=== PATIENT | male | born 1940 | race Caucasian/White ===

== ENCOUNTER 2016-12-24 00:51 | Inpatient (IN) | payer MEDICARE, OTHER ==
--- NOTE | 2016-12-23 13:50 | NUR ---
1350-RECIEVED FROM FLAT MACHINE CUTTER-R FEM MICKIE IN PLACE AND PLACED TO MONITOR-NOTED AFIB ON [id number]-GPCBO AND ALERT-RESTLESS SOME CONFUSION-O2 AT 2 L SYSTEM DEVELOPMENT ENGINEER-R AC-INFUSNG INTEGRELIN AT 8.3ML/H-RENAL DOSE-SUPINE AND DIRECTED BY STAFF TO REMAIN SUPINE-FAMILY BROUGHT TO BEDSIDE-
--- NOTE | 2016-12-23 14:30 | NUR ---
Lisha JOSE AT BEDSIDE -RENAL NURSE PRACTITIONER-CONSULT FOR SAME OBTAINED BY DR MANCILLA-EVENTS AND CURRENT STATUS REPORT GIVEN-FAMILY STATED PT WAS SEEN BY KIDNEY DR IN PAST -NOT ABLE TO RECALL WHEN-PT DENIED SAME-N/S STARTED AT 100ML/H AND TO CONTINUE
--- NOTE | 2016-12-23 17:50 | NUR ---
URINE SAMPLES SENT
[2016-12-24] VITALS (27 sets, daily range): BP systolic 102–202; BP diastolic 59–132; BMI 30.1
[~2016-12-24] VITALS: Ht 188 cm; Wt 107.1 kg
--- NOTE | ~2016-12-24 | HEMODYNAMI ---
PATIENT:ABDULLAHI POTTS JR MEDICAL RECORD: [id number] : 42 [address] [id number] ADMISSION DATE: 12/24/16 Generatedon:12/26/201612:21 Patient name: ABDULLAHI POTTS Patient #: [id number] SSN: D OB: 1940 Date of study: 12/24/2016 Page: Of Hemodynamic Procedure Report Patient Data Patient Demographics Procedure consent was obtained First Name: ABDULLAHI Gender: Male Last Name: KATLYN Suffix: [facility] Initial: Nataliia : 1940 Patient #: [id number] Age: 76 year(s) Race: Unknown Additional ID: [id number] Contact details Address: [address] [place] [address] State: [place] City: [place] Zip code: [address] Past Medical History Allergies: No known allergies Admission Admission Data Admission Date: 12/24/2016 Admission Time: 3:09 Room #: [facility] Height (in.): 74 BSA: 2.33 (m2) Height (cm.): 187.96 BMI: 30.11 (kg/m2) Weight (lbs.): 234.5 Weight (kg.): 106.37 Lab Results Lab Result Date: 12/24/2016 Lab Result Time: 0:00 Biochemistry Name Units Result Min Max Creatinine mg/dl 1.9 --(----)-* 0.6 1.3 CBC Name Units Result Min Max Hemoglobin g/dl 14.4 --(*---)-- 13.5 17.5 Procedure Procedure Types Cath Procedure Diagnostic Procedure LHC LHC w/Coronaries PCI Procedure Coronary Stent Initial Miscellaneous Procedures Moderate Sedation up to 45 minutes Procedure Description Procedure Date Procedure Date: 12/24/2016 Procedure Start Time: 11:11 Procedure End Time: 12:30 Procedure Staff Name Function Venecia Kurtz RT Monitor Richie Duarte RT Scrub Andres Ferrer RN Nurse Candido Elizabeth MD Performing Physician Procedure Data Cath Procedure Fluoroscopy Diagnostic fluoroscopy Total fluoroscopy Time: time: 18.2 min 18.2 min Diagnostic fluoroscopy Total fluoroscopy dose: dose: 2663 mGy 2663 mGy Contrast Material Contrast Material Type Amount (ml) Isovue 300 301 Entry Location Entry Primary Successful Side Size Upsize Upsize Entry Closure Succes sful Closure Location (Fr) 1 (Fr) 2 (Fr) Remarks Device Remarks Femoral Right 5 Fr 6 Fr Sheath artery Long sutured in place Estimated blood loss: 10 ml Diagnostic catheters Device Type Used For End Catheter Placement Cordis 5Fr JL 4.0 Left Coronary Catheter (MP) Angiography Diagnostic Infinity 5Fr Left Coronary JL 5 catheter Angiography Cordis 5Fr 3DRC Catheter Right Coronary (MP) Angiography Cordis 5Fr Pigtail LV Angiography Catheter (MP) Cordis 5Fr Pigtail Renal Catheter (MP) arteriography with flush -selective Procedure Complications Contrast Reaction Procedure Medications Medication Administration Route Dosage Oxygen NC 2 l/min Lidocaine 2% added to field 20 Heparin Flush Bag added to field 2 bags (1000units/500ml NS) 0.9% NaCl I.V. 100 ml/hr Versed I.V. 1 mg Fentanyl I.V. 50 mcg Versed I.V. 1 mg Fentanyl I.V. 50 mcg unlisted medication I.V. 2.5 mg Versed I.V. 1 mg Fentanyl I.V. 50 mcg Heparin Bolus I.V. 5000 units Versed I.V. 1 mg Fentanyl I.V. 50 mcg Pepcid I.V. 20 mg Solumedrol I.V. 125 mg Epinephrine I.V. 1 mg Solumedrol I.V. 125 mg Lasix I.V. 40 mg Oxygen NRB 16 l/min Integrilin (Bolus I.V. 9.5 ml 2mg/ml) Heparin Bolus I.V. 5000 units Integrilin Drip 8.5 ml/hr (75mg/100ml) Hemodynamics Rest BSA: 2.33 (m2) HGB: 14.4 (g/dl) O2 Consumption: Estimated: 266.89 (ml/min) O2 Co nsumption indexed: Estimated:114.55 (ml/min/m) Heart Rate: 69 (bpm) Pressure Samples Time Site Value (mmHg) Purpose Heart Use Rate(bpm) 11:19 LV 166/20,23 EDP 62 11:19 LV 155/18,21 Pullback 60 11:19 AO 165/73(120) Pullback 60 Gradients Valve Time Site 1 Site 2 Mean SEP/DFP Peak To Heart Use (mmHg) (sec/min) Peak Rate (mmHg) (bpm) Aortic 11:19 LV AO 0 60 155/18,21 165/73(120) Calculations Valve P-P Mean Valve Index Valve Source Name Gradient Area Flow (cm2) Aortic 0 0 Snapshots Pre Cath Intra NCS Post Cath Vital Signs Time Heart Resp SPO2 etCO2 [id number] NIBP (mmHg) Rhythm Pain Sedatio n Rate (ipm) (%) (mmHg) (mmHg) Status Level (bpm) 10:55:37 82 26 96 0 0 211/127(182) A-Fib 0 () 10(A) , No pain 11:00:07 71 18 94 0 0 192/124(159) A-Fib 0 () 10(A) , No pain 11:04:24 60 16 95 0 0 188/106(166) NSR 0 (11) 10(A) , No pain 11:09:35 62 15 93 0 0 171/117(149) NSR 0 (11) 10(A) , No pain 11:13:51 67 16 97 0 0 167/106(135) NSR 0 (11) 9(A) , No pain 11:17:57 66 15 96 0 0 167/114(144) NSR 0 (11) 9(A) , No pain 11:22:09 58 16 96 0 0 180/94(130) NSR 0 (11) 9(A) , No pain 11:26:27 63 13 97 0 0 173/109(135) NSR 0 (11) 9(A) , No pain 11:30:41 62 13 96 0 0 176/102(146) NSR 0 (11) 9(A) , No pain 11:34:49 69 16 98 0 0 125/72(90) NSR 0 (11) 10(A) , No pain 11:38:52 81 13 95 0 0 100/61(84) NSR 0 (11) 10(A) , No pain 11:42:54 79 14 96 0 0 86/53(75) NSR 0 (11) 10(A) , No pain 11:46:39 90 39 96 0 0 102/83(98) NSR 0 (11) 10(A) , No pain 11:51:24 87 39 96 0 0 164/101(123) NSR 0 (11) 10(A) , No pain 11:55:26 81 21 94 0 0 123/83(107) NSR 0 (11) 10(A) , No pain 11:59:25 73 16 98 0 0 126/82(104) NSR 0 (11) 10(A) , No pain 12:03:23 69 18 98 0 0 128/89(102) NSR 0 (11) 10(A) , No pain 12:07:21 77 18 99 0 0 145/92(116) NSR 0 (11) 10(A) , No pain 12:11:24 76 16 100 0 0 134/85(105) NSR 0 (11) 10(A) , No pain 12:15:26 78 17 100 0 0 124/90(107) NSR 0 (11) 10(A) , No pain 12:19:24 70 17 100 0 0 137/90(112) NSR 0 (11) 10(A) , No pain 12:23:23 74 18 98 0 0 127/96(114) NSR 0 (11) 10(A) , No pain 12:27:23 78 18 96 0 0 133/88(113) NSR 0 (11) 10(A) , No pain Medications Time Medication Route Dose Verified Delivered Reason Notes Effectiveness by by 10:52:49 Oxygen NC 2 Candido Buffie used for l/min [facility] Edwardo owens MD 10:52:58 Lidocaine 2% added 20ml Candido Buffie for local to vial [facility]. Edwardo Ferrer RN anesthetic field WORRELL 10:53:06 Heparin Flush added 2 Candido Candido used for Bag to bags [place] procedure (1000units/500ml field MD WORRELL NS) 10:53:16 0.9% NaCl I.V. 100 Candido Buffie Per physician ml/hr [facility] Edwardo Ferrer RN, MD 11:10:16 Versed I.V. 1 mg Candido Buffie for sedation [facility] Edwardo Ferrer RN, MD 11:10:25 Fentanyl I.V. 50 Candido Buffie for sedation mcg [facility] Edwardo Ferrer RN, MD 11:13:08 Versed I.V. 1 mg Candido Buffie for sedation [facility] Edwardo Ferrer RN, MD 11:13:12 Fentanyl I.V. 50 Candido Buffie for sedation mcg [facility] Edwardo Ferrer RN, MD 11:16:37 Enalapril I.V. 2.5 Candido Salas[address] for mg [facility] Edwardo Ferrer RN hypertension MD 11:22:29 Versed I.V. 1 mg Candido Buffie for sedation [facility]. Edwardo Ferrer RN, MD 11:22:33 Fentanyl I.V. 50 Candido Buffie for sedation mcg [facility] Edwardo Ferrer RN, MD 11:23:44 Heparin Bolus I.V. 5000 Candido Buffie for verifi ed units [facility] Edwardo Ferrer RN anticoagulation with dr MD girard 11:34:54 Versed I.V. 1 mg Candido Buffie for sedation [facility]. Edwardo Ferrer RN, MD 11:35:00 Fentanyl I.V. 50 Candido Buffie for sedation mcg [facility] Edwardo Ferrer RN, MD 11:38:35 Solumedrol I.V. 125 Candido Campos Per physician mg [facility] Edwardo Ferrer RN, MD 11:41:02 Pepcid I.V. 20 mg Candido Campos Per physician [facility] Edwardo Ferrer RN, MD 11:46:14 Epinephrine I.V. 1 mg Candido Campos Per physician [facility] Edwardo Ferrer RN, MD 11:49:17 Solumedrol I.V. 125 Candido Salasie Per physician mg [facility] Edwardo Ferrer RN, MD 11:51:29 Lasix I.V. 40 mg Candido Campos Per physician [facility]. Edwardo Ferrer RN, MD 11:57:12 Oxygen NRB 16 Candido Buffie used for l/min [facility] Edwardo Ferrer RN procedure 12:00:21 Integrilin I.V. 9.5 Candido Salasie for Wasted (Bolus 2mg/ml) ml [facility] Edwardo Ferrer RN antiplatelet 0.5 ml MD therapy of vial. 12:06:01 Heparin Bolus I.V. 5000 [address] for units [facility] Edwardo Ferrer RN anticoagulation 12:06:09 Integrilin Drip 8.5 Candido Buffie renal (75mg/100ml) ml/hr [facility] Edwardo Ferrer RN dose MD Procedure Log Time Note 10:30:13 Richie Duarte RT(R) sent for patient. Start room use. 10:35:20 Time tracking: Call back 10:35:24 Plan of Care:Hemodynamics will remain stable., Cardiac rhythm will remain stable., Comfort level will be maintained., Respiratory function will remain adequate., Patient/ family verbilizes understanding of procedure., Procedure tolerated without complication., Recovers from procedure without complications.. 10:40:17 Patient Height : 74 cm 10:40:26 Patient Weight : 234.5 kg 10:45:22 Patient received from PCU to CCL 1 Alert and oriented. Tansferred to table in Supine position. 10:45:34 Warm blankets applied, and eli hugger turned on for patient comfort. 10:45:35 Correct patient and procedure confirmed by team. 10:45:36 Signed procedure consent form obtained from patient. 10:45:37 ECG and BP/O2 sat monitors applied to patient. 10:45:38 Full Disclosure recording started 10:52:49 Oxygen 2 l/min NC was administered by Andres Ferrer RN; used for procedure; 10:52:58 Lidocaine 2% 20ml vial added to field was administered by Andres Ferrer RN; for local anesthetic; 10:53:06 Heparin Flush Bag (1000units/500ml NS) 2 bags added to field was administered by Candido Elizabeth MD; used for procedure; 10:53:15 Vital chart was started 10:53:16 0.9% NaCl 100 ml/hr I.V. was administered by Andres Ferrer RN; Per physician; 10:56:47 Rhythm: atrial fibrillation 10:56:50 Baseline sample Acquired. 10:56:54 H&P Date Dictated: 12/24/2016 Within 30 days and on chart.. 10:56:56 Pre-op teaching completed and patient verbalized understanding. 10:56:56 Pre-procedure instructions explained to patient. 10:56:57 Family in waiting room. 10:57:00 Patient NPO since Midnight. 10:57:07 Patient allergic to No known allergies 10:57:51 Is the patient allergic to Iodine/contrast media? No. 10:57:55 Is patient on blood thinner?Yes 10:57:57 ACC The patient was administered the following blood thiners within the last 24 hours: ACCPlavix 10:58:06 Patient diabetic? No. 10:58:09 Previous problem with sedation/anesthesia? No ? 10:58:11 Snore? Yes 10:58:12 Sleep apnea? Yes 10:58:13 Deviated septum? No 10:58:14 Sticks out tongue? Yes 10:58:14 Opens mouth fully? Yes 10:58:16 Airway obstruction? No ? 10:58:19 Dentures? No ? 10:58:22 Pre procedure: right dorsailis pedis pulse 2+ Normal; easily identifiable; not easily obliterated 10:58:24 Modified Anderson's test Ulnar < 7 seconds 10:58:25 Patient pain scale 0/10 ?. 10:58:31 IV patent on arrival in right forearm with 0.9% NaCl at [facility]. 10:58:36 Lab results completed and on chart. 10:59:18 Lab Result : Hemoglobin 14.4 g/dl 10:59:18 Lab Result : Creatinine 1.9 mg/dl 10:59:25 Right groin area was prepped with chlora-prep and draped in sterile fashion 10:59:26 Sharps counted by scrub and verified by R.N. 10:59:26 Alarms reviewed by R. N. 11:05:07 Physician paged 11:06:37 Zero performed for pressure channel P1 11:07:43 Use device set Femoral Dx 11:07:44 Acist Syringe opened to sterile field. 11:07:45 Medline Cath Pack opened to sterile field. 11:07:45 Bag Decanter opened to sterile field. 11:07:46 St Moreno 260cm J .035 wire opened to sterile field. 11:07:46 Terumo 5Fr [place] Sheath opened to sterile field. 11:07:47 Acist Hand Control opened to sterile field. 11:07:48 Diagnostic Infinity 5Fr Multipack catheter opened to sterile field. 11:07:48 Acist Manifold opened to sterile field. 11:07:49 Tegaderm 4 x 4 opened to sterile field. 11:09:04 Final Timeout: patient, procedure, and site verified with staff and physician. All members of the team are in agreement. 11:09:07 Right groin site verified by team. 11:09:11 Physical assessment completed. ASA score P 2 - A patient with mild systemic disease as per Candido Elizabeth MD. 11:09:46 Sedation plan: IV Moderate Sedation Versed, Fentanyl 11:10:16 Versed 1 mg I.V. was administered by Andres Ferrer RN; for sedation; 11:10:25 Fentanyl 50 mcg I.V. was administered by Andres Ferrer RN; for sedation; 11:11:30 Procedure started. 11:11:32 Local anesthetic to right femoral artery with Lidocaine 2% by Candido Elizabeth MD.INITIAL ACCESS ONLY 11:12:18 A 5 Fr sheath was inserted into the Right Femoral artery 11:13:08 Versed 1 mg I.V. was administered by Andres Ferrer RN; for sedation; 11:13:12 Fentanyl 50 mcg I.V. was administered by Andres Ferrer RN; for sedation; 11:13:54 A Cordis 5Fr JL 4.0 Catheter (MP) was advanced over the wire and used for Left Coronary Angiography.removed, unable to cannulate 11:14:58 Catheter removed. 11:15:11 A Diagnostic Infinity 5Fr JL 5 catheter was advanced over the wire and used for Left Coronary Angiography. 11:16:25 Catheter removed. 11:16:37 Enalapril 2.5 mg I.V. was administered by Andres Ferrer RN; for hypertension; 11:16:57 A Cordis 5Fr 3DRC Catheter (MP) was advanced over the wire and used for Right Coronary Angiography. 11:17:42 Catheter removed. 11:18:11 A Cordis 5Fr Pigtail Catheter (MP) was advanced over the wire and used for LV Angiography. 11:19:36 LV gram done using RESENDIZ 11:19:55 Injector settings: Ml/sec: 7, Volume: 15, 11:21:12 A Cordis 5Fr Pigtail Catheter (MP) was advanced over the wire and used for Renal arteriography with flush -selective. 11:21:15 Catheter removed. 11:22:01 LawPivottronic Launcher 6Fr EBU 4.0 guide catheter opened to sterile field. 11:22:02 Munroe Whisper J 300cm 0.014 guide wire opened to sterile field. 11:22:03 Merit BasixCompak Inflation Kit opened to sterile field. 11:22:03 Terumo 6Fr [place] Destination Sheath opened to sterile field. 11:22:24 Sheath upsized to a 6 Fr Long. 11:22:29 Versed 1 mg I.V. was administered by Andres Ferrer RN; for sedation; 11:22:32 Terumo 6Fr [place] Sheath opened to sterile field. 11:22:33 Fentanyl 50 mcg I.V. was administered by Andres Ferrer RN; for sedation; 11:23:32 6 Fr EBU 4.0 guide catheter was inserted over the wire 11:23:44 Heparin Bolus 5000 units I.V. was administered by Andres Ferrer RN; for anticoagulation; verified with dr girard 11:24:10 Whisper wire advanced. 11:29:12 The Medtronic Integrity 2.5 X 18 stent was advanced then removed because of failure to cross lesion 11:32:04 Inflation number: 1 A [place]ren[place] Sci Haralson 3.0 X 15 balloon was prepped and advanced across the Dist LAD, then inflated to 10 VERNA for 0:24 (min:sec). 11:32:49 Inflation number: 1 The [place] Sci Haralson 3.0 X 15 balloon was reinflated across the Prox LAD, to 15 VERNA for 0:10 (min:sec). 11:33:10 Inflation number: 2 The [place] Sci Haralson 3.0 X 15 balloon was reinflated across the Prox LAD, to 14 VERNA for 0:08 (min:sec). 11:34:23 Inflation number: 3 The [place] Sci Haralson 3.0 X 15 balloon was reinflated across the Prox LAD, to 14 VERNA for 0:30 (min:sec). 11:34:54 Versed 1 mg I.V. was administered by Andres Ferrer RN; for sedation; 11:35:00 Fentanyl 50 mcg I.V. was administered by Andres Ferrer RN; for sedation; 11:35:44 Balloon removed over the wire. 11:37:23 Wire removed. 11:37:31 Wrenshall Sci Choice PT Extra Support J 300cm .014 gu opened to sterile field. 11:37:32 pt having symptoms of possible contrast reaction. frothy airway and development of whelps and itching. dr girard notified immediately. 11:38:35 Solumedrol 125 mg I.V. was administered by Andres Ferrer RN; Per physician; 11:38:43 Inflation Number: 2 A Medtronic Integrity 2.5 X 18 stent was prepped and advanced across the Dist LAD. The stent was deployed at 12 VERNA for 0:22 (min:sec). 11:39:24 Stent catheter was removed intact over wire. 11:41:02 Pepcid 20 mg I.V. was administered by Andres Ferrer RN; Per physician; 11:42:13 Inflation Number: 4 A Medtronic Integrity 3.0 X 18 stent was prepped and advanced across the Prox LAD. The stent was deployed at 14 VERNA for 0:23 (min:sec). 11:43:59 Stent catheter was removed intact over wire. 11:46:05 Patient complaining of itching and breaking out in hives. Diaphoretic . Possible contrast reaction. 11:46:11 Wire removed. 11:46:14 Epinephrine 1 mg I.V. was administered by Andres Ferrer RN; Per physician; 11:46:17 New Whisper wire advanced. 11:49:17 Solumedrol 125 mg I.V. was administered by Andres Ferrer RN; Per physician; 11:49:50 Wire removed. 11:49:51 Guide catheter removed. 11:51:29 Lasix 40 mg I.V. was administered by Andres Ferrer RN; Per physician; 11:55:23 6 Fr EBU 4.0 guide catheter was inserted over the wire 11:57:12 Oxygen 16 l/min NRB was administered by Andres Ferrer RN; used for procedure; 11:58:41 Whisper wire advanced. 12:00:21 Integrilin (Bolus 2mg/ml) 9.5 ml I.V. was administered by Andres Ferrer RN; for antiplatelet therapy; Wasted 0.5 ml of vial. 12:01:22 Inflation number: 5 The [place] Sci Haralson 3.0 X 15 balloon was reinflated across the Prox LAD, to 8 VERNA for 0:05 (min:sec). 12:01:32 Inflation number: 6 The [place] Sci Haralson 3.0 X 15 balloon was reinflated across the Prox LAD, to 8 VERNA for 0:03 (min:sec). 12:01:45 Inflation number: 7 The [place] Sci Haralson 3.0 X 15 balloon was reinflated across the Prox LAD, to 8 VERNA for 0:03 (min:sec). 12:02:00 Inflation number: 8 The [place] Sci Haralson 3.0 X 15 balloon was reinflated across the Prox LAD, to 8 VERNA for 0:03 (min:sec). 12:02:42 Inflation number: 9 The [place] Sci Haralson 3.0 X 15 balloon was reinflated across the Prox LAD, to 10 VERNA for 0:10 (min:sec). 12:04:32 Balloon removed over the wire. 12:06:01 Heparin Bolus 5000 units I.V. was administered by Andres Ferrer RN; for anticoagulation; 12:06:09 Integrilin Drip (75mg/100ml) 8.5 ml/hr was administered by Andres Ferrer RN; ; renal dose 12:07:43 The Medtronic Integrity 3.0 X 15 stent was advanced then removed because of failure to cross lesion 12:07:53 Guide catheter removed. 12:07:53 Wire removed. 12:08:10 Sheath removed intact; hemostasis achieved with Sheath sutured in place to the Right Femoral artery. 12:08:45 Procedure ended.(Physican Out) 12:09:07 Fluoroscopy time 18.20 minutes. 12:09:11 Fluoroscopy dose: 2663 mGy 12:09:11 Flurop Dose total: 2663 12:09:33 Contrast amount:Isovue 300 301ml. 12:09:35 Sharps counted by scrub and verified by R.N. 12:09:39 Insertion/operative site no bleeding no hematoma. 12:09:44 Post-op/insertion site Right Femoral artery dressed using a 4 x 4 and Tegaderm. 12:09:52 Post right femoral artery:unchanged, clean and dry 12:09:53 Post Procedure Pulses reassessed and unchanged 12:10:00 Post-procedure physical assessment completed. ASA score P 3 - A patient with severe systemic disease as per Candido Elizabeth MD. 12:10:07 Post procedure rhythm: unchanged. 12:10:11 Estimated blood loss: 10 ml 12:10:12 Patient needs reinforcement of post procedure teaching. 12:10:12 Post procedure instruction explained to patient.Patient verbalizes understanding. 12:10:39 Procedure type changed to Cath procedure, Diagnostic procedure, LHC, LHC w/Coronaries, PCI procedure, Coronary Stent Initial, Miscellaneous Procedures, Moderate Sedation up to 45 minutes 12:13:34 SUTURE SILK 2-0 BLK BR FS 18 I opened to sterile field. 12:14:02 Wren[place] Sci Choice PT Extra Support J 300cm .014 gu opened to sterile field. 12:14:52 Procedure and supply charges have been captured, reviewed, submitted and are correct. 12:14:53 See physician's report for complete and final results. 12:30:12 Vital chart was stopped 12:30:15 Report given to CVICU. 12:30:20 Patient transfered to CVICU with Bed. 12::29 Full Disclosure recording stopped 12::29 Procedure ended. 12:31:06 End room use (Document Last) 12:15:20 Procedure Complication : Contrast Reaction. late entry rosa rn 12:17:42 Pt to be transfered to CVICU due to anaphylaxis reaction to contrast. Pt continues to have patent airway with guarded monitoring of swelling. Whelps and itching resolved. late entry rosa rn Intervention Summary Intervention Notes Time ActionType Lesion and Equipment Action# Pressure Duration Attributes Used 11:29:12 Discard Medtronic Stent Integrity 2.5 X 18 stent 11:32:04 Inflate Dist LAD W[place] 1 10 00:24 balloon Sci Haralson 3.0 X 15 balloon 11:32:49 Reinflate Prox LAD Wrenshall 1 15 00:10 balloon Sci Haralson 3.0 X 15 balloon 11:33:10 Reinflate Prox LAD Wrenshall 2 14 00:08 balloon Sci Haralson 3.0 X 15 balloon 11:34:23 Reinflate Prox LAD [place]shall 3 14 00:30 balloon Sci Haralson 3.0 X 15 balloon 11:38:43 Place stent Dist LAD Medtronic 2 12 00:22 Integrity 2.5 X 18 stent 11:42:13 Place stent Prox LAD Medtronic 4 14 00:24 Integrity 3.0 X 18 stent 12:01:22 Reinflate Prox LAD [place]renshall 5 8 00:05 balloon Sci Haralson 3.0 X 15 balloon 12:01:32 Reinflate Prox LAD Wrenshall 6 8 00:03 balloon Sci Haralson 3.0 X 15 balloon 12:01:45 Reinflate Prox LAD Wrenshall 7 8 00:03 balloon Sci Haralson 3.0 X 15 balloon 12:02:00 Reinflate Prox LAD Wrenshall 8 8 00:03 balloon Sci Haralson 3.0 X 15 balloon 12:02:42 Reinflate Prox LAD W[place]shall 9 10 00:10 balloon Sci Haralson 3.0 X 15 balloon 12:07:43 Discard Medtronic Stent Integrity 3.0 X 15 stent Device Usage Item Name Manufacture Quantity Catalog Number Hospital Part Current Mini mal Lot# / Charge Number Stock Stock Serial# Code Acist Acist 1 [id number] 888996 350535 20 Syringe Medical Systems Inc Bag Microtek 1 [id number] 592807 13040 788551 5 Convrrt Inc. Medline Cardinal 1 [id number] 137749 65684 778787 5 Cath Pack Health Terumo 5Fr Terumo 1 [id number] 580685 767188 451502 [address] Moreno 1 [id number] 161647 551573 351084 30 260cm J .035 wire Acist Hand Acist 1 95520 686392 766191 618511 5 Control Medical Systems Inc Acist Acist 1 89755 734273 450306 115729 5 ideasoft Medical Systems Inc Diagnostic Cardinal 1 [id number] 427080 45707 379092 30 Infinity Health 5Fr Multipack catheter Tegaderm 4 3M 1 1626W 150171 798791 845547 5 x 4 Cordis 5Fr Cardinal 1 492389 5 JL 4.0 Health Catheter (MP) Diagnostic Cardinal 1 [id number] 249378 338668 546166 5 Infinity Health 5Fr JL 5 catheter Cordis 5Fr Cardinal 1 557150 5 3DRC Health Catheter (MP) Cordis 5Fr Cardinal 1 007072 5 Pigtail Health Catheter (MP) Medtronic Medtronic 1 [id number] 983946 03340 964799 1 Launcher 6Fr EBU 4.0 guide catheter Munroe Munroe 1 [id number] 337481 369159 601891 5 Whisper J Vascular 300cm 0.014 guide wire Terumo 6Fr Terumo 1 [id number] 545806 09036 068148 5 [place] Destination Sheath Merit Merit 1 [id number] 914026 450853 238569 15 [facility] Medical Inflation Kit Terumo 6Fr Terumo 1 [id number] 595362 918833 755050 40 [place] Sheath Medtronic Medtronic 1 [id number] 894152 407753 5 [id number] Integrity 2.5 X 18 stent Wrenshall Sci Wrenshall 1 [id number] 044845 088257 684122 1 [id number] Haralson Scientific 3.0 X 15 balloon Wrenshall Sci Wrenshall 2 [id number] 974052 20181127 717129 5 Choice PT Scientific Extra Support J 300cm .014 gu Medtronic Medtronic 1 [id number] 999769 500165 5 [id number] Integrity 3.0 X 18 stent Medtronic Medtronic 1 [id number] 815683 230725 2 [id number] Integrity 3.0 X 15 stent SUTURE SILK Ethicon 1 685 193858 528934 5 2-0 BLK BR FS 18 I Signature Audit [place] Stage Time Signature Unsigned Intra-Procedure 12/24/2016 Venecia Counts Venecia Counts RT(R) 12:36:54 PM RT(R) 12/26/2016 12:13:41 PM Intra-Procedure 12/26/2016 Venecia Counts 12:21:23 PM RT(R) Signatures Monitor : Venecia Counts RT Signature : Date : Time : [place] [id number]
[2016-12-24 01:21] LABS: BASOPHILS 0.5 % (0-2); EOSINOPHILS 1.5 % (0-7); HEMATOCRIT 43.7 % (42.0-54.0); HEMOGLOBIN 14.4 g/dL (13.5-17.5); IMMATURE GRANULOCYTES 0.2 % (0-5); LYMPHOCYTES 11.2 % (15-50); MCH 31.6 pg (26.0-34.0); MEAN PLATELET VOLUME 10.8 fL (7.4-10.4); MONOCYTES 4.2 % (2-11); NEUTROPHILS 82.4 % (40-80); PLATELET COUNT 236 10x3/uL (130-400); RBC 4.55 10x6/uL (4.20-6.10); RDW 14.8 % (11.5-14.5); WBC 12.2 10x3/uL (4.8-10.8)
[2016-12-24 01:58] LABS: ALBUMIN 3.3 g/dL (3.4-5.0); ALKALINE PHOSPHATASE 84 U/L (46-116); ALT (SGPT) 22 U/L (10-68); BILIRUBIN - TOTAL 0.65 mg/dL (0.2-1.3); CALC OSMOLALITY 273 mosm/kg (275-300); CALCIUM 8.4 mg/dL (8.5-10.1); CARBON DIOXIDE 32.8 mmol/L (21.0-32.0); CHLORIDE - SERUM 102 mmol/L (98-107); CREATINE KINASE 155 UL (21-232); CREATININE - SERUM 1.9 mg/dL (0.6-1.3); GLUCOSE 167 mg/dL (74-106); POTASSIUM - SERUM 2.8 mmol/L (3.5-5.1); PRO BNP 3766 pg/mL (0-450); PROTEIN - SERUM 7.5 g/dL (6.4-8.2); SODIUM 131 mmol/L (136-145); UREA NITROGEN 33 mg/dL (7-18); eGFR NON AFRICAN AMERICAN 37 mL/min (90-120)
[2016-12-24 01:59] LABS: TROPONIN-I 1.926 ng/mL (0.000-0.060)
[2016-12-24] MEDS ORDERED: FLUTICASONE PRO16 GM (03:22)
[2016-12-24] MEDS ORDERED: PROAIR HFA8.5 GM INH (03:23)
[2016-12-24] MEDS ORDERED: ALAVERT10 MG/TAB PO (03:24)
[2016-12-24] MEDS ORDERED: KLONOPIN0.5 MG PO (03:26)
[2016-12-24] MEDS ORDERED: EDARBYCLOR 40-1 EAC1 PO (03:27)
[2016-12-24] MEDS ORDERED: K-DUR20 MEQ PO (03:27)
[2016-12-24] MEDS ORDERED: CATAPRES0.2 MG PO (03:28)
[2016-12-24] MEDS ORDERED: PRAVACHOL40 MG PO (03:29)
[2016-12-24] MEDS ORDERED: TOPROL XL100 MG PO (03:30)
[2016-12-24] MEDS ORDERED: ZYLOPRIM100 MG PO (03:31)
--- NOTE | 2016-12-24 05:48 | NUR ---
ADMIT TO ROOM 2114 FROM ER. ALERT/ ORIENTED. ACCOMPANIED BY GIRLFRIEND. ADMISSION HISTORY AND ASSESSMENT COMPLETED. HOME MEDS REVIEWED. O2 @2 L/NC IN PLACE. IV CARDIZEM DRIP AT 10ML/HR INFUSING TO RIGHT A/C. TELEMETRY 69 CAF PER MONITOR.
--- NOTE | 2016-12-24 07:00 | NUR ---
INITIAL ROUNDS MADE. PT LYING IN BED, FAMILY IN ROOM. NO NEEDS OR C/O VOICED AT THIS TIME. CALL LIGHT IN REACH. WILL CONT TO MONITOR.
--- NOTE | 2016-12-24 08:55 | NUR ---
ORDERS RECEIVED FOR C TODAY, PT NPO. DISCUSSED PLAN OF CARE WIT PT AND GIRLFRIEND. QUESTIONS ADDRESSED AT THIS TIME. CONSENTS OBTAINED. CONT TO MONITOR.
[2016-12-24 10:19] LABS: BASOPHILS 0.3 % (0-2); EOSINOPHILS 1.1 % (0-7); HEMATOCRIT 42.5 % (42.0-54.0); HEMOGLOBIN 14.1 g/dL (13.5-17.5); IMMATURE GRANULOCYTES 0.2 % (0-5); MCH 31.8 pg (26.0-34.0); MCHC 33.2 g/dL (31.0-37.0); MCV 95.9 fL (80.0-100.0); MEAN PLATELET VOLUME 10.6 fL (7.4-10.4); MONOCYTES 6.7 % (2-11); NEUTROPHILS 83.7 % (40-80); PLATELET COUNT 214 10x3/uL (130-400); RBC 4.43 10x6/uL (4.20-6.10); RDW 14.7 % (11.5-14.5); WBC 11.6 10x3/uL (4.8-10.8)
[2016-12-24 10:33] LABS: CALCIUM 8.2 mg/dL (8.5-10.1); CARBON DIOXIDE 30.3 mmol/L (21.0-32.0); CREATININE - SERUM 1.7 mg/dL (0.6-1.3); POTASSIUM - SERUM 3.3 mmol/L (3.5-5.1)
--- NOTE | 2016-12-24 11:00 | NUR ---
TAKEN TO [employer] RINK ATTENDANT VIA BED
--- NOTE | 2016-12-24 15:30 | NUR ---
DR OCAMPO AT [facility]-SPOKE WITH SIGNIFICANT OTHER-NOT FORTHCOMING WITH PAST MEDICAL HISTORY-ASCERTAINED WITH PT FOR 1YEAR ONLY-PT NOT ABLE TO CLARIFY MEDICAL HISTORY-ORDERS RECIEVED FROM DR OCAMPO
[2016-12-24 15:33] LABS: CHOL - HDL RATIO 3.5 ratio (2.3-4.9); LDL-HDL RATIO 2.2 ratio (1.5-3.5); MAGNESIUM - SERUM 2.3 mg/dL (1.8-2.4); PHOSPHOROUS 2.9 mg/dL (2.5-4.9)
--- NOTE | 2016-12-24 15:50 | NUR ---
[facility] ULTRASOUND AT BEDSIDE
[2016-12-24 15:54] LABS: COMPLEMENT C4 17.5 mg/dL (17.4-52.2)
--- NOTE | 2016-12-24 16:45 | NUR ---
VICENTE CATH PLACED PER PROTOCOL DIRECTED BY DR OCAMPO
[2016-12-24 17:17] LABS: APPEARANCE CLEAR (CLEAR); BILIRUBIN NEGATIVE (NEGATIVE); COLOR DK YELLOW (YELLOW); GLUCOSE 50 mg/dL (NEGATIVE); KETONE NEGATIVE (NEGATIVE); LEUKOCYTE ESTERASE NEGATIVE (NEGATIVE); NITRITE NEGATIVE (NEGATIVE); PROTEIN 2+ mg/dL (NEGATIVE); SPECIFIC GRAVITY 1.025 (1.005-1.020); UROBILINOGEN NORMAL (NORMAL)
[2016-12-24 17:19] LABS: WHITE CELLS - URINE OCC /hpf (0-5)
[2016-12-24 17:20] LABS: AMORPHOUS SEDIMENT <1+ /lpf (NONE SEEN)
--- NOTE | 2016-12-24 19:20 | NUR ---
SHIFT ASSESSMENT COMPLETED. SEE ASSESSMENT FLOWSHEET FOR DETAILS. ASKED TO GET UP TO USE COMMODE. INFORMED OF BEDREST STATUS AND WHY. PLACED ON BEDPAN TO HAVE BM, NO RESULTS. ALSO C/O NEEDING TO PEE, INFORMED OF VICENTE CATHETER IN BLADDER.
--- NOTE | 2016-12-24 20:00 | NUR ---
PLACED ON BEDPAN BY LOG ROLLING TO KEEP RT LEG STRAIGHT. NO RESULTS.
--- NOTE | 2016-12-24 20:10 | NUR ---
DR. ASTORGA CALLED TO GET CLARIFICATION ON INTEGRILIN ORDER. OTHER PO MEDS ORDERED PER [facility] AFTER GETTING UPDATE ON VITALS.
--- NOTE | 2016-12-24 20:15 | NUR ---
DR. OCAMPO CALLED AND INFORMED OF DECREASED URINE OUTPUT-APPROX. 50ML SINCE 4PM. REPORTS THIS IS EXPECTED AND NO NEW ORDERS AT THIS TIME.
--- NOTE | 2016-12-24 21:30 | NUR ---
PLACED ON BEDPAN PER REQUEST TO NEED TO GET UP TO COMMODE. NO RESULTS.
--- NOTE | 2016-12-24 23:30 | NUR ---
REASSESSMENT COMPLETED. SEE ASSESSMENT FLOWSHEET. AWAKENS EASILY. DENIES TO BE TURNED IN BED. RT GROIN WNL-NO BLEEDING OR HEMATOMA AT SHEATH SITE. PALPABLE PEDAL PULSES +1. SIPS OF WATER GIVEN. REPORTS LIPS BEING "CHAPPED". CONTROLLED A-FIB ON THE MONITOR IN THE 70'S. 02 @ 4LPM/NC. DENIES PAIN. WILL MONITOR.
[2016-12-25] VITALS (24 sets, daily range): BP systolic 113–174; BP diastolic 63–101
--- NOTE | 2016-12-25 01:00 | NUR ---
EYES CLOSED. NO ACUTE DISTRESS NOTED. WILL MONITOR.
--- NOTE | 2016-12-25 01:45 | NUR ---
EYES OPEN. DRAINED URINE INTO VICENTE BAG. ASKING WHAT TIME IT IS. INFORMED. ASKING WHY IS HE CONNECTED TO ALL THIS STUFF. REORIENTED OF EVENTS OF YESTERDAY AND ALL INVASIVE MONITORING EQUIPMENT HE HAS ATTACHED. THEN STATES "OH YEAH, I MUST HAVE BEEN DREAMING". DENIES NEEDS. WILL MONITOR.
--- NOTE | 2016-12-25 03:05 | NUR ---
EYES CLOSED. NO ACUTE DISTRESS NOTED. WILL MONITOR.
--- NOTE | 2016-12-25 04:15 | NUR ---
PORTABLE CHEST XRAY COMPLETED. I& O'S COMPLETED. REASSESSMENT COMPLETED. SEE ASSESSMENT PER FLOWSHEET. ORIENTED. NO ACUTE DISTRESS NOTED. DENIES TROUBLE BREATHING OR ANY PAIN. HEELS BRIDGED. DENIES TO BE TURNED. ASKING ABOUT HIS PROGRESS. INFORMED OF KIDNEYS NOT PUTTING OUT MUCH URINE AND THAT KIDNEY DOCTOR WILL ROUND TO SEE HIM TODAY WELL. WILL MONITOR.
--- NOTE | 2016-12-25 05:20 | NUR ---
AM LABS DRAWN FROM RT FEMORAL A-LINE. NEW BAG OF IV FLUIDS HUNG. ORIENTED. WANTING SOMETHING TO DRINK. APPLE JUICE GIVEN AND SET ON BEDSIDE TABLE. REPORTS PASSING GAS. ENCOURAGED TO CALL IF NEEDS BEDPAN, VERBALIZED UNDERSTANDING. CONVERSATION ABOUT PLAN OF CARE FOR TODAY AND ABOUT HIS HOUSE ON [address] AND STATED HE GREW UP IN [place] IN CONVERSATION. DENIES ANY OTHER NEEDS. WILL MONITOR.
[2016-12-25 05:33] LABS: BASOPHILS 0.1 % (0-2); EOSINOPHILS 0 % (0-7); HEMATOCRIT 41.3 % (42.0-54.0); HEMOGLOBIN 13.8 g/dL (13.5-17.5); IMMATURE GRANULOCYTES 0.1 % (0-5); LYMPHOCYTES 6.4 % (15-50); MCH 31.7 pg (26.0-34.0); MCHC 33.4 g/dL (31.0-37.0); MCV 94.9 fL (80.0-100.0); MEAN PLATELET VOLUME 11.2 fL (7.4-10.4); MONOCYTES 1.5 % (2-11); NEUTROPHILS 91.9 % (40-80); PLATELET COUNT 230 10x3/uL (130-400); RBC 4.35 10x6/uL (4.20-6.10); RDW 15.1 % (11.5-14.5); WBC 14.1 10x3/uL (4.8-10.8)
[2016-12-25 06:05] LABS: ANION GAP 13.4 mmol/L (8-16); CALCIUM 7.1 mg/dL (8.5-10.1); CARBON DIOXIDE 24.6 mmol/L (21.0-32.0); CREATININE - SERUM 3.3 mg/dL (0.6-1.3); MAGNESIUM - SERUM 2.3 mg/dL (1.8-2.4); THYROID STIMULATING HORMONE 2.22 uIU/mL (0.36-3.74)
--- NOTE | 2016-12-25 06:10 | NUR ---
S.O. IN AT BEDSIDE FOR VISITATION. INTEGRILIN GTT TURNED OFF. MORE APPLE JUICE GIVEN PER REQUEST. DENIES NEEDS. WILL MONITOR.
--- NOTE | 2016-12-25 14:38 | NUR ---
0715-RECIEVED AWAKE AND ALERT-APPEARS LUCID AT THIS TIME-FAMILY AT BEDSIDE- R GROIN SITE TO MICKIE ON MONITOR-NOTED AFIB-PPP SHASHA-DENIES ANY C/O CHEST PAIN 0800-Lisha DAMON RENAL SERVICES AT BEDSIDE -SPOKE WITH PT AND FAMILY 0830-DR CARIAS AT [facility] AND SPOKE WITH PT AND FAMILY 1050-DR CARIAS AND BUILDING OPERATOR TECHICIAN AT BEDSIDE-R GROIN MICKIE D/C'D-WITH USE OF FEMSTOP-PER PROTOCOL-HEMOSTASIS OBTAINED AT 170MM-AND SAND BAG-UNTIL NO PP AUDIBLE WITH DOPPLER-DIRECTED TO LEAVE FOR 1 HOUR-THEN BEGIN DECREASE OF FEMSTOP FOR TOTAL OF 2 HR 1150-SANDBAG REMOVED AND DECREASED TO 150-PPWITH DOPPLER AND HEMOSTASIS 1210-DRECREASED TO 130-HEMOSTASIS- FAMILY AT BESIDE [id number]-AAANWZJN TO 100-HEMOSTASIS AND FAMILY AT BEDSIDE-DR OCAMPO AT [facility] AND SPOKE WITH FAMILY AND PT 1240-REQUESTED FAMILY TO RETURN TO WAITING AREA-FEMSTOP DECREASED TO 60-HEMOSTASIS 1250-FEM STOP 40-HEMOSTASIS 1305-FEMSTOP DEFLATED -NO HEMATOMA/BLEEDING NOTED-PPP
--- NOTE | 2016-12-25 17:42 | NUR ---
1600-ASSISTED TO SIDE OF BED-DR MANCILLA IN RM-PLACED ON TELEMETRY AND ASSISTED TO BATHROOM-ASSISTED BACK TO BED-REMAINS AFIB-R GROIN SOFT TO TOUCH-R PPP-O2 AT 2L 1700-FOUND PT OUT OF BED-IV STRETCHED ACROSS BED-VICENTE CATHETER ATTACHED TO OPPOSITE SIDE OF BED AND STRETCHED ACCROSS END OF BED -O2 OFF-PT ATTEMPTING TO REACH ENTRANCE OF RM TO CLOSE CURTAIN AND TURN LIGHT OUT-REDIRECTED PT TOWARDS BED FOR PATENCY OF L AC IV-NURSE CALLED FOR ADDITIONAL ASSISTANCE-PT SAFELY ASSISTED TO BED-PT EXPRESSED IRRITATION AT BEING PREVENTED FROM UNSAFE SITUATION-NIBP 189/98-STATED NURSING STAFF DID THAT-O2 REPLACED AT 2L AND STRESSED HEART ATTACK MONDAY AND STILL IN UNSTABLE STATUS-NOTED CONT AFIB ON MONITOR-VICENTE CATH PATENT-BED ALARM PLACED ON 1730-CALL LIGHT ON -ANSWERED SAME-PT EXPRESSED FRUSTRATION ABOUT BEING PREVENTED FROM MOVING AROUND ROOM-STRESSED IMPORTANCE OF IV FLUID DELIVERY IN ATTEMPT TO RESOLVE CURRENT KIDNEY FAILURE AND DANGER OF DISLODGING VICENTE CATHETER -STRESS STEADILY IMPROVING-PT STATED DOES NOT WANT BLOOD PRESSURE CUFF -STATES HURTS-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
--- NOTE | 2016-12-25 19:00 | NUR ---
REPORT RECIEVED AND ASSESSMENT COMPLETED. SEE FLOWSHEET FOR FULL DETAILS. PT IS POST CATH INSERTION. NO SIGNS OF BLEEDING OR HEMATOMA. HAS LOW URINE OUTPUT WITH IV FLUIDS RUNNING. LUNGS CTA AT THIS TIME. PT IS RESTING QUIETLY AT THIS TIME AND SHOWING APPROPRIATE BEHAVIOR; HOWEVER, PT WAS AGGRESSIVE WITH NURSING STAFF DURING DAY SHIFT, AND WAS SEEN GETTING OUT OF BED. WILL MONITOR CLOSELY.
--- NOTE | 2016-12-25 23:00 | NUR ---
REASSESSMENT COMPLETED. PT B/P IN 140'S SYSTOLIC. SCHEDULED CATAPRES GIVEN AT THIS TIME. WILL CONTINUE TO MONITOR
[2016-12-26] VITALS (25 sets, daily range): BP systolic 124–196; BP diastolic 72–121
--- NOTE | 2016-12-26 00:53 | NUR ---
NO CHANGES IN STATUS AT THIS TIME WILL CONTINUE TO MONITOR
--- NOTE | 2016-12-26 03:00 | NUR ---
REASSESSMENT COMPLETED. SEE FLOWSHEET. OT HAS MORE AUDIBLE CRACKLES IN LUNGS. VSS WILL MONITOR FOR CHANGES IN STATUS
--- NOTE | 2016-12-26 05:00 | NUR ---
NO CHANGES IN PT STATUS AT THIS TIME. VSS. WILL MONITOR.
[2016-12-26 05:16] LABS: BASOPHILS 0 % (0-2); EOSINOPHILS 0 % (0-7); HEMATOCRIT 36.6 % (42.0-54.0); HEMOGLOBIN 11.8 g/dL (13.5-17.5); IMMATURE GRANULOCYTES 0.2 % (0-5); MCH 31.2 pg (26.0-34.0); MCHC 32.2 g/dL (31.0-37.0); MCV 96.8 fL (80.0-100.0); MEAN PLATELET VOLUME 10.7 fL (7.4-10.4); MONOCYTES 5.4 % (2-11); NEUTROPHILS 88.4 % (40-80); PLATELET COUNT 220 10x3/uL (130-400); RBC 3.78 10x6/uL (4.20-6.10); RDW 15.5 % (11.5-14.5); WBC 12.9 10x3/uL (4.8-10.8)
[2016-12-26 05:21] LABS: ANION GAP 15.8 mmol/L (8-16); CALCIUM 7.2 mg/dL (8.5-10.1); CARBON DIOXIDE 24.8 mmol/L (21.0-32.0); POTASSIUM - SERUM 4.6 mmol/L (3.5-5.1)
[2016-12-26 05:22] LABS: CREATININE - SERUM 4.9 mg/dL (0.6-1.3)
--- NOTE | 2016-12-26 07:30 | NUR ---
REPORT RECD PT CARE ASSUMED. PT IS ALERT AND ORIENTED X4. PT DENIES PAIN, N/V AT THIS TIME. LUNG SOUNDS CLR BILAT, DIMINISHED IN BASES. PT HAS NC @ 2L. PPP. SCDS/JULES IN PLACE. VSS. WILL CONT TO MONITOR. SEE SHIFT ASSESSMENT FOR FURTHER DETAIL.
--- NOTE | 2016-12-26 08:00 | NUR ---
PT PROVIDED WITH BREAKFAST TRAY. PT POSITONED APPROPRIATLEY IN BED, FEEDS INDEPENDENTLY. VSS.
--- NOTE | 2016-12-26 09:07 | OP ---
PATIENT NAME: ABDULLAHI POTTS JR MEDICAL RECORD: [id number] :41 LOCATION:[facility]08 ADMISSION DATE:12/24/16 SURGEON: FRANDY CARIAS MD DATE OF OPERATION: PROCEDURE: 1. Left heart catheterization. 2. Right femoral artery approach. CATHETERS: A 5-North Korean sheath, 5/4 left and right Emma, 5/4 pig. We proceeded to PTCA stenting after procedure was finished. FINDINGS: Left ventriculography in 30-degree RESENDIZ view shows global hypokinesis. Overall, function reduced 25-30%. CORONARY ANATOMY: LEFT MAIN: Left main is free of disease. LAD: Has 2 sequential stenosis, 1 distally, 1 on the proximal third. CIRCUMFLEX: Luminal irregularities. RIGHT CORONARY ARTERY: By far large artery, free of disease. 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 PLAN: Intervention of LAD momentarily. At the end of the left heart catheterization, the pigtail was pulled to level of the renal arteries, nonselective renal arteriography and runoff on the right was performed. This showed no evidence of renal artery stenosis, widely patent renal arteries, right and left. No evidence of significant atherosclerotic disease of the right iliac system, but with marked tortuosity. After the 5-North Korean sheath was then exchanged for a long 6-North Korean sheath. EBU 4 guided catheter provided good catheter support. Distal 80% stenosis was addressed with a 3.0 x 18 mm Integrity nondrug-eluting stent. Next, a 3.0 x 18 mm Integrity nondrug eluting stent was placed in the proximal stenosis. At this point, the patient was noted to develop a rash, marked wheezing and hypotension. IV epinephrine, Solu-Medrol bolus and Benadryl given during the hypotensive episode and with the infusion of epinephrine he was noted to have marked ST elevation. Repeat angiography showed marked clotting of the proximal LAD stent, we were able to pass a Whisper wire across the totally occluded LAD and then returned with a 3.0 x 15 mm Lander balloon and was placed up and down the right and the patient was rebolused with Integrilin and started on Integrilin drip. Final injection again showed excellent resolution of both stenosis and minimal residual thrombus. The patient was left on Integrilin drip to be continued overnight, epinephrine and Solu-Medrol as well as Benadryl were given for the anaphylactic reaction. The patient was transferred to the ICU in critical condition. TRANSINT:[id number] Voice Confirmation ID: [id number] DOCUMENT ID: [id number] OPERATIVE REPORT [id number] ABDULLAHI POTTS JR,FRANDY William MD at 0907 CC: [id number] DICTATION DATE: 12/24/16 1310 VEHICLE RETURN ASSOCIATE: 12/24/16 2133 ADM IN [place] [address] [place] [address]
--- NOTE | 2016-12-26 09:07 | CN ---
PATIENT NAME:ABDULLAHI POTTS JR MEDICAL RECORD: [id number] : 41 LOCATION:[facility] ADMIT DATE: 12/24/16 ACCOUNT: [id number] CONSULTING PHYSICIAN: FRANDY CARIAS MD REFERRING PHYSICIAN: DESI MANCILLA DO DATE OF CONSULTATION: 12/24/2016 HISTORY OF PRESENT ILLNESS: A 76-year-old gentleman just turned yesterday with a history of hypertension, difficult to control by his report, has a history of dyslipidemia, began feeling poorly approximately 1 month ago. Yesterday, had chest burning and tightness, found to be in atrial fibrillation. Additionally, he had marked elevated cardiac enzymes, troponin at this point at 13, currently pain free, atrial fibrillation was unknown to him, again course is a more subtle course over the past month. We are asked to see him for his cardiovascular status. PAST MEDICAL HISTORY: Includes: 1. History of hypertension. 2. Hyperlipidemia. 3. Hypokalemia. ALLERGIES: None known. 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 No set exercise program. He takes care of all of his ADLs. REVIEW OF SYSTEMS: The patient reports easy bruising but reports no swollen glands. The patient reports no fever, no night sweats, no significant weight gain, no significant weight loss. No significant exercise tolerance. The patient reports no dry eyes, no irritation, no vision change. Patient reports no difficulty hearing and no ear pain. Patient reports no frequent nose bleeds or nose and sinus problems. Patient reports on arm pain on exertion. No shortness of breath while lying down. No history of heart murmur. Patient reports no cough, no wheezing or coughing up blood. Patient reports no abdominal pain, no vomiting. Normal appetite. No diarrhea and not vomiting blood. No nausea and no constipation. Patient reports no incontinence. No difficulty urinating. No hematuria. No increased frequency. Patient reports no muscle aches. No weakness, no arthralgias, no back pain. No swelling of the extremities. Patient reports no abnormal mole, no jaundice, no rashes. Reports no loss of consciousness. No weakness and no numbness. No seizures, dizziness, or headaches. The patient reports no depression, no sleep disturbance, feeling safe in a relationship and no alcohol abuse. Patient reports on fatigue. Reports no runny nose or sinus pressure. No itching, no hives, and no frequent sneezing. MEDICATIONS: Include metoprolol 100 daily, pravastatin 40 daily, clonidine 0.2 b.i.d., potassium supplementation 20 daily. PHYSICAL EXAMINATION: GENERAL: Pleasant gentleman in no acute distress. VITAL SIGNS: Blood pressure 202/121, pulse 76 and regular. HEENT: Normocephalic, atraumatic. NECK: No bruits noted. HEART: Regular, summation gallop is noted. LUNGS: Good air excursion. CONSULT REPORT [id number] ABDULLAHI POTTS JR ABDOMEN: Soft, nontender. EXTREMITIES: Pulse 2+ with no edema. NEUROLOGICAL: Grossly intact. IMPRESSION: Non-ST elevation myocardial infarction. PLAN: For diagnostic angiography, intervention based on the above. TRANSINT:[id number] Voice Confirmation ID: [id number] DOCUMENT ID: [id number] FRANDY CARIAS MD at 0907 CC: [id number] DICTATION DATE: 12/24/1634 COTTON CLASSER AIDE: 12/24/[address] [place] [address] [address] [place] [id number] [place] [address]
--- NOTE | 2016-12-26 10:50 | NUR ---
DR CARIAS HERE TO SEE PT. NO CHANGES AT THIS TIME. VSS.
--- NOTE | 2016-12-26 12:41 | NUR ---
PT PROVIDED WITH LUNCH TRAY. PT AT BEDSIDE FOR VISITATION.
--- NOTE | 2016-12-26 13:01 | NUR ---
* Is the patient Alert and Oriented? Yes 0 * How many steps to enter\exit or inside your home? 0 0 * PCP Dr. Lawrence 0 * Pharmacy [facility] on 0 * Preadmission Environment Home with Family 0 * ADLs Independent 0 * List name and contact numbers for known caregivers / representatives who currently or will assist patient after discharge: Significant other - Elo [phone] or [phone] Son - Skip Son - Yuriy Logan - Yuval 0 * Additional services required to return to the preadmission environment? No 0 * Can the patient safely return to the preadmission environment? Yes 0 * Has this patient been hospitalized within the prior 30 days at any hospital? No Patient Name: ABDULLAHI POTTS Admission Status: ER Accout number: [id number] Admission Date: 12-24-2016 : 1941 Admission Diagnosis: Attending: MANISHA Current LOS: 2 Planned Disposition: Home Primary Insurance: MEDICARE A & B Discharge Planning Comments: CM met with patient to assess dc plans/needs. He states he lives with his significant other, Elo. He reports he was independent with all ADL's & AIDL's prior to admission. He was not using any assistive devices for mobility and has not had home health services in the past. At dc, he will return home. He states he has 3 sons - one who lives in [place], 2 in [place], who will assist with any needs. CM will follow & assist as needed. Icebox Man: Mony Garcia
--- NOTE | 2016-12-26 14:54 | NUR ---
PT RESTING QUIETLY IN BED, NO DISTRESS NOTED. VSS. WILL MONITOR.
--- NOTE | 2016-12-26 15:00 | NUR ---
REPORT RECEIVED FROM BRIAN FERGUSON RN. WILL RESUME CARE OF PT.
--- NOTE | 2016-12-26 16:10 | NUR ---
RIGHT AC PIV INFILTRATED. D/C'D WITH CATH TIP INTACT. STARTED 22G PIV IN RIGHT FA X1 STICK. PT TOLERATED WELL. RESTARTED NS GTT.
--- NOTE | 2016-12-26 17:08 | NUR ---
PT AMBULATED TO RESTROOM. HAD LARGE BM. PT UP TO CHAIR. GIVEN COMPLETE BATH AND LINEN CHANGE. TOLERATED WELL. VSS. PT ON ROOM AIR. O2 SAT 95%. NO S/S OF DISTRESS NOTED. ALL SKIN INTACT. NO REDNESS NOTED TO BUTTOCK. PT AMBULATED BACK TO BED. VICENTE CARE COMPLETED WITH SURE STEP VICENTE WIPES.
--- NOTE | 2016-12-26 19:00 | NUR ---
REPORT RECEIVED AND ASSESSMENT COMPLETED SEE FLOWSHEET FOR FULL DETAILS. PT IS MUCH MORE ALERT TODAY, AND URINE OUTPUT HAS INCREASED. LUNG SOUNDS ARE CLEAR IN THE RIGHT UPPER LOBE, DIMMINISHED IN MIDDLE AND LOWER. LEFT UPPER LOBE HAS SOME CRACKLES, THOUGH DECREASED FROM PREVIOUS SHIFT. LEFT LOWER IS DIMINISHED. PT HAS NOT DISPLAYED ANY AGGRESSIVE BEHAVIOR OR DECREASED LOC DURING MY CARE. PT B/P ELEVATED. 180/93. CATAPRES GIVEN AT THIS TIME. WILL MONITOR FOR NEED FOR FURTHER INTERVENTION THROUGHOUT SHIFT
--- NOTE | 2016-12-26 21:10 | NUR ---
2100 MEDS GIVEN. CONTINUING TO MONITOR B/P FOR FURTHERR NEED OF INTERVENTION. NO OTHER CHANGES AT THIS TIME
[2016-12-27] VITALS (26 sets, daily range): BP systolic 136–191; BP diastolic 75–945
--- NOTE | 2016-12-27 01:01 | NUR ---
NO CHANGES IN PATIENT STATUS AT THIS TIME. VSS WILL CONTINUE TO MONITOR.
--- NOTE | 2016-12-27 03:03 | NUR ---
NO CHANGES IN PATIENT STATUS AT THIS TIME. VSS. WILL CONTINUE TO MONITOR
[2016-12-27 04:59] LABS: BASOPHILS 0.1 % (0-2); EOSINOPHILS 1.4 % (0-7); HEMATOCRIT 34.3 % (42.0-54.0); HEMOGLOBIN 11.2 g/dL (13.5-17.5); IMMATURE GRANULOCYTES 0.2 % (0-5); LYMPHOCYTES 10.9 % (15-50); MCHC 32.7 g/dL (31.0-37.0); MEAN PLATELET VOLUME 10.2 fL (7.4-10.4); MONOCYTES 7.1 % (2-11); NEUTROPHILS 80.3 % (40-80); PLATELET COUNT 176 10x3/uL (130-400); RBC 3.61 10x6/uL (4.20-6.10); RDW 15.2 % (11.5-14.5); WBC 10.5 10x3/uL (4.8-10.8)
--- NOTE | 2016-12-27 05:00 | NUR ---
LABS DRAWN AND I&O COLLECTED AT THIS TIME. NO OTHER CHANGES IN PATIENT STATUS AT THIS TIME. WILL CONTINUE TO MONITOR
[2016-12-27 05:21] LABS: CARBON DIOXIDE 24.8 mmol/L (21.0-32.0)
[2016-12-27 05:24] LABS: ANION GAP 14.7 mmol/L (8-16); CALCIUM 6.8 mg/dL (8.5-10.1); POTASSIUM - SERUM 3.5 mmol/L (3.5-5.1)
--- NOTE | 2016-12-27 07:00 | NUR ---
REC'D REPORT AND RESUMED CARE, AWAKE AND CONFUSED, C/O PAIN IN SIDE, LOWER RIGHT ABDOMEN WITH DISTENTION, ASSESSMENT COMPLETE PER FLOWSHEET, CALL LIGHT IN REACH, SET UP FOR BREAKFAST, INDEPENDENT WITH EATING, NO NEEDS AT THIS TIME
--- NOTE | 2016-12-27 07:15 | NUR ---
REC'D REPORT AND RESUMED CARE, AAO, O2 VIA NC SAT 98%, SBP 178, OTHER VSS, DENIES PAIN, ASSESSMENT COMPLETED PER FLOWSHEET, SELF REPOSITIONED UP IN BED FOR BREAKFASTF, INDEPENDENT WITH SET UP AND EATING, CALL LIGHT IN REACH, NO NEEDS AT THIS TIME
[2016-12-27 10:16] LABS: ANA REFLEX - DBL STRANDED DNA 1 IU/mL (0-9); ANA REFLEX - DIRECT Negative (Negative)
--- NOTE | 2016-12-27 11:00 | NUR ---
RESTING USING I PAD, ASSESSMENT COMPLETE, DENIES PAIN, CALL LIGHT IN REACH, VOICES NO NEEDS AT THIS TIME
--- NOTE | 2016-12-27 12:02 | NUR ---
OOB TO BATHROOM, WITH STAND BY ASSIST, TOLERATED TRANSFER WITH OUT DIFFICULTY
--- NOTE | 2016-12-27 12:22 | NUR ---
UP IN CHAIR, BATH SET UP GIVEN, INDEPENDENT WITH BATHING
--- NOTE | 2016-12-27 16:17 | NUR ---
I AND O'S COMPLETED, PAGED DR OCAMPO RE: ELEVATED BP
--- NOTE | 2016-12-27 16:58 | NUR ---
BP 191/118, PAGED DR OCAMPO, COREG 25 MG PO AND HYDRALIZINE 10 MG IV GIVEN PER MAR ORDER
--- NOTE | 2016-12-27 17:49 | NUR ---
PER DR PALMER, ORDER GIVEN TO INCREASE HYDRALIZINE TO 20 MG Q 6
--- NOTE | 2016-12-27 17:53 | NUR ---
DR DE LA CRUZ HERE FOR EVAL NEW ORDER GIVEN FOR ELEVATED BP, CHANGED HYDRALIZINE, FTO 20 MG Q 4HR PRN SBP > 160
--- NOTE | 2016-12-27 19:40 | NUR ---
REPORT REC'D AND CARE ASSUMED, REC'D PT AWAKE, ALERT, ORIENTED X 3, O2 @ 2LITERS, RIGHT FA PIV WITH NS @ 75CC/HR INFUSING, NO REDNESS OR TENDERNESS NOTED, VICENTE PATENT DRAINING DARK YELLOW URINE, PT COMPLAINS OF BEING COLD, WARM BLANKET PROVIDED, DENIES PAIN OR FURTHER NEEDS, SR UP X 2, CALL LIGHT IN REACH.
--- NOTE | 2016-12-27 21:00 | NUR ---
EVENING MEDS GIVEN, PT STATES " I AM STILL COLD" WARM BLANKET PROVIDED, TEMP 98.4, NO VISITORS IN AT THIS TIME, VSS.
--- NOTE | 2016-12-27 23:00 | NUR ---
PT STATES " I CAN'T CATCH MY BREATH", PT REPOSITIONED UP IN BED, COUGHING AND DEEP BREATHING DONE, O2 @ 2LITERS FOR PT COMFORT HAD WEANED OFF, BP 178/99, 20MG HYDRALAZINE GIVEN SLOW IVP FOR BP, PT DENIES FURTER NEEDS AT THIS TIME, SR UP X 2, CALL LIGHT IN REACH.
[2016-12-28] VITALS (18 sets, daily range): BP systolic 141–185; BP diastolic 76–98; Ht 188 cm; Wt 107.1 kg
--- NOTE | 2016-12-28 | NUR ---
PT RESTING IN BED, EYES CLOSED, RESP EVEN AND UNLABORED, O2 SAT 97% ,BP IMPROVED 146/75
--- NOTE | 2016-12-28 02:00 | NUR ---
PT RESTING EYES CLOSED, RESP EVEN AND UNLABORED, VSS, WILL CONT TO MONITOR FOR CHANGES.
--- NOTE | 2016-12-28 03:30 | NUR ---
LAB AT BS FOR AM LAB DRAW, PT COMPLAINS OF WAKING UP AT TIMES GASPING FOR AIR, O2 SAT REMAINS 96-97%, PT REPOSITIONED UP IN BED, PT STATES "THAT DOES FEEL BETTER", WILL CONT TO MONITOR CLOSELY FOR CHANGES.
[2016-12-28 04:12] LABS: BASOPHILS 0.1 % (0-2); EOSINOPHILS 2.9 % (0-7); HEMATOCRIT 34.7 % (42.0-54.0); HEMOGLOBIN 11.4 g/dL (13.5-17.5); IMMATURE GRANULOCYTES 0.3 % (0-5); MCH 31.2 pg (26.0-34.0); MCHC 32.9 g/dL (31.0-37.0); MCV 95.1 fL (80.0-100.0); MEAN PLATELET VOLUME 10.8 fL (7.4-10.4); MONOCYTES 8.4 % (2-11); NEUTROPHILS 78.3 % (40-80); PLATELET COUNT 191 10x3/uL (130-400); RBC 3.65 10x6/uL (4.20-6.10); RDW 15.3 % (11.5-14.5); WBC 9.6 10x3/uL (4.8-10.8)
[2016-12-28 04:21] LABS: ANION GAP 13.3 mmol/L (8-16); CALCIUM 7.4 mg/dL (8.5-10.1); CARBON DIOXIDE 27.9 mmol/L (21.0-32.0); POTASSIUM - SERUM 3.2 mmol/L (3.5-5.1)
[2016-12-28 04:35] LABS: CREATININE - SERUM 2.3 mg/dL (0.6-1.3)
--- NOTE | 2016-12-28 05:45 | NUR ---
BP ELEVATED GREATER THAN 160, 20MG HYDRALAZINE GIVEN SLOW IVP
--- NOTE | 2016-12-28 06:40 | NUR ---
PT COMPLAINS OF SHORTNESS OF BREATH, O2 SAT 96%, PT REQUESTING TISSUES TO BLOW NOSE, BLOOD NOTED, PT STATES " THAT IS PROBLEM I HAVE WITH OXYGEN", " I STILL AM NOT BREATHING WELL" OXYGEN REMOVED FOR NOW, O2 SAT 96% ON ROOM AIR, WILL REPORT TO ONCOMING SHIFT.
--- NOTE | 2016-12-28 08:00 | NUR ---
SHIFT ASSESSMENT VIA FLOWSHEET, SEE FOR DETAILS.
--- NOTE | 2016-12-28 08:30 | NUR ---
PT INSTRUCTED ON USE OF I/S AND IMPORTANCE. PT REFUSES TO USE I/S AT THIS TIME. REINTERATED THE NEED TO COUGH/ DEEP BREATHE AND PERFORM OTHER EXERCISES TO DECREASE SHALLOW RESPIRATIONS. REPORTS FEELING SOB, SPO2 97% ON ROOM AIR. DIMINISHED BREATHE SOUNDS IN LOWER LOBES BILATERALLY.
--- NOTE | 2016-12-28 09:15 | NUR ---
NO VISITORS AT THIS TIME. PT STATES HIS. " WILL BE HERE AT NOON. I WANT TO TAKE A NAP SINCE I DIDN'T SLEEP WELL LAST NIGHT." LIGHTS TURNED OFF PER PT REQUEST. CALL LIGHT WITHIN REACH. MONITORS CONNECTED AND ALARMS SET.
--- NOTE | 2016-12-28 10:10 | NUR ---
DR OCAMPO HERE TO SEE PT, NEW ORDERS RECEIVED. PT OK TO TRANSFER TO FLOOR FROM RENAL STANDPOINT.
--- NOTE | 2016-12-28 10:26 | NUR ---
PT OOB TO CHAIR WITH PHYSICAL THERAPY ASSIST.
--- NOTE | 2016-12-28 11:15 | NUR ---
PT REMAINS IN CHAIR AT BEDSIDE. KCL 10MEQ/100ML INFUSING AT 50ML/HR D/T PT C/O OF BURNING AT 100ML/HR. CON AFIB ON CM. PT REQUESTS LIGHTS OFF IN ROOM. CALL LIGHT WITHIN REACH.
--- NOTE | 2016-12-28 11:30 | NUR ---
REASSESSMENT VIA FLOWSHEET, SEE FOR DETAILS.
[2016-12-28 12:15] LABS: SPE - A/G RATIO 1.1 (0.7-1.7); SPE - ALBUMIN 2.7 g/dL (2.9-4.4); SPE - ALPHA-1 GLOBULIN 0.2 g/dL (0.0-0.4); SPE - ALPHA-2 GLOBULIN 0.5 g/dL (0.4-1.0); SPE - BETA GLOBULIN 0.9 g/dL (0.7-1.3); SPE - GAMMA GLOBULIN 0.8 g/dL (0.4-1.8); SPE - M-SPIKE Not Observed g/dL (Not Observed); SPE - TOTAL PROTEIN 5.1 g/dL (6.0-8.5)
--- NOTE | 2016-12-28 12:16 | NUR ---
FAMILY AT BEDSIDE, UPDATE PROVIDED.
--- NOTE | 2016-12-28 12:50 | NUR ---
PT BACK TO BED WITH PHYSICAL THERAPY ASSIST.
--- NOTE | 2016-12-28 13:06 | NUR ---
SPOKE WITH DR CARIAS VIA PHONE, PT STATUS REPORTED AND NEW ORDERS RECEIVED.
--- NOTE | 2016-12-28 16:37 | NUR ---
REPORT CALLED TO TAMMI.
--- NOTE | 2016-12-28 17:00 | NUR ---
PT TO ROOM 2104 VIA WHEELCHAIR. ALL BELONGINGS TRANSPORTED WITH PATIENT. RECEIVING NURSE AT BEDSIDE.
--- NOTE | 2016-12-28 17:02 | NUR ---
RECEIVED REPORT FROM ICU NURSE JAYASHREE FOUNTAIN. RECEIVED PT VIA WHEELCHAIR. PT IS ALERT AND ORIENTED. ON ROOM AIR. IV SEEN TO RIGHT WRIST THAT WITH POTASSIUM RUNNING AT 50CC. NO NEED AT CURRENT TIME. BED IS IN LOW POSITION, SIDE RAILS ARE UP X2, CALL LIGHT IS IN REACH, AND NON-SKID SOCKS ARE ON. WILL CONTINUE TO MONITOR.
--- NOTE | 2016-12-28 17:46 | NUR ---
PT IS CURRENLTY SITTING UP IN BED WITH EYES OPEN RESTING. GUEST IS AT BEDSIDE. PT DENIES ANY NEED AT CURRENT TIME. WILL CONTINUE TO MONITOR.
--- NOTE | 2016-12-28 20:48 | NUR ---
PT LYING IN BED RESTING COMFORTABLY, EASILY ROUSABLE TO VERBAL STIMULI, REQUESTING SOMETHING PRN SLEEP WHILE HERE. HAVE PAGED ELEVATED GUARD FOR [facility]. PT DENIES ANY OTHER NEEDS. CONTINUE TO MONITOR CLOSELY.
[2016-12-29 05:41] LABS: ANION GAP 15.7 mmol/L (8-16); BASOPHILS 0.1 % (0-2); CALCIUM 7.7 mg/dL (8.5-10.1); CARBON DIOXIDE 25.5 mmol/L (21.0-32.0); CREATININE - SERUM 1.8 mg/dL (0.6-1.3); EOSINOPHILS 3.7 % (0-7); HEMATOCRIT 35.2 % (42.0-54.0); HEMOGLOBIN 11.5 g/dL (13.5-17.5); IMMATURE GRANULOCYTES 0.2 % (0-5); LYMPHOCYTES 12.1 % (15-50); MCHC 32.7 g/dL (31.0-37.0); MCV 94.9 fL (80.0-100.0); MEAN PLATELET VOLUME 10.9 fL (7.4-10.4); MONOCYTES 8.3 % (2-11); NEUTROPHILS 75.6 % (40-80); PLATELET COUNT 196 10x3/uL (130-400); POTASSIUM - SERUM 3.2 mmol/L (3.5-5.1); RBC 3.71 10x6/uL (4.20-6.10); RDW 15.1 % (11.5-14.5); WBC 8.3 10x3/uL (4.8-10.8)
--- NOTE | 2016-12-29 05:51 | NUR ---
PT C/O INCREASED COUGH AND NOT BEING ABLE TO SLEEP WELL THIS SHIFT. PT STATES HE MAY NEED SOMETHING MORE FREQUENT THAN THE ADVAIR INHALER. PT DENIES ANY OTHER NEEDS, AND IS IN NO ACUTE DISTRESS AT THIS TIME. PT DOES SOUND MORE CONGESTED SINCE BEGINNING OF SHIFT. CONTINUE TO MONITOR CLOSELY.
[2016-12-29 06:10] VITALS: BP 187/108
--- NOTE | 2016-12-29 06:19 | NUR ---
PT CALLED C/O INCREASED SOB, ESPECIALLY WITH EXERTION. I DID PLACE O2 VIA NC TO HELP PT REST, EVEN THOUGH HIS O2 SAT AT REST ON ROOM AIR WAS 96%. PT'S RESPIRATIONS ARE INCREASED AT 20+ A MINUTE. WILL CONTACT PHYSICIAN SLIME PLANT OPERATOR HELPER FOR FURTHER ORDERS.
--- NOTE | 2016-12-29 07:26 | NUR ---
AM ROUNDING- RECEIVED REPORT FROM DIRECTOR OF STUDENT SERVICES NURSE DARRELL. PT IS CURRENTLY SITTING UP IN BED WITH EYES OPEN RESTING. ON 02 AT 2L VIA NC (PT HAS BEEN SOB ON DIRECTOR OF STUDENT SERVICES PER REPORT). ON MONITOR SHOWING CONTROLLED A-FIB, HR 64. IV SEEN TO RIGHT WRIST THAT IS CURRENTLY SALINE LOCKED. NO NEED AT CURRENT TIME. PT IS AWAITING BREATHING TX NOW. WILL CONTINUE TO MONITOR AND CONTINUE WITH PLAN OF CARE.
[2016-12-29 10:16] LABS: UPE RAND - ALBUMIN 77.4 % (()); UPE RAND - ALPHA 1 GLOBULIN 1.9 % (()); UPE RAND - BETA GLOBULIN 9.4 % (()); UPE RAND - GAMMA GLOBULIN 7.4 % (())
[2016-12-29 12:00] VITALS: BP 155/84
--- NOTE | 2016-12-29 14:56 | NUR ---
1200- ДМИТРИЙ BRADFORD NP ON UNIT. INFORMED HER OF PT HAVING SOB AND HOW PT HAS BEEN COUGHING AND PER STRAP MAKER NURSE WAS COUGHING ALL NIGHT. ДМИТРИЙ BRADFORD NP GAVE NO NEW ORDERS. WILL CONTINUE TO MONITOR.
--- NOTE | 2016-12-29 17:45 | NUR ---
PT IS CURRENTLY SITTING UP IN BED ON TABLET. PT DENIES ANY NEED AT CURRENT TIME. WILL CONTINUE TO MONITOR.
--- NOTE | 2016-12-29 20:51 | NUR ---
PT AWAKE, ALERT, ORIENTED, LYING IN BED, RESTING COMFORTABLY. PT DENIES ANY NEEDS AND STATES HIS COUGH AND INCREASED SOB FROM THIS MORNING IS BETTER. CONTINUE TO MONITOR CLOSELY. BED LOW, CALL LIGHT IN REACH, SIDE RAILS X 2, HOB 10 DEGREES.
[2016-12-29 21:40] VITALS: BP 154/86
[2016-12-30 01:20] VITALS: BP 169/83
[2016-12-30 05:04] LABS: BASOPHILS 0.2 % (0-2); EOSINOPHILS 5.7 % (0-7); HEMATOCRIT 35.1 % (42.0-54.0); HEMOGLOBIN 11.5 g/dL (13.5-17.5); IMMATURE GRANULOCYTES 0.3 % (0-5); LYMPHOCYTES 12.6 % (15-50); MCH 31.5 pg (26.0-34.0); MCHC 32.8 g/dL (31.0-37.0); MCV 96.2 fL (80.0-100.0); MEAN PLATELET VOLUME 10.7 fL (7.4-10.4); MONOCYTES 9.4 % (2-11); NEUTROPHILS 71.8 % (40-80); PLATELET COUNT 202 10x3/uL (130-400); RBC 3.65 10x6/uL (4.20-6.10); RDW 15.1 % (11.5-14.5); WBC 8.9 10x3/uL (4.8-10.8)
[2016-12-30 05:16] LABS: ANION GAP 12.2 mmol/L (8-16); CARBON DIOXIDE 28.2 mmol/L (21.0-32.0); POTASSIUM - SERUM 3.4 mmol/L (3.5-5.1)
[2016-12-30 05:43] VITALS: BP 176/104
--- NOTE | 2016-12-30 05:50 | NUR ---
PT RESTING COMFORTABLY, DENIES ANY NEEDS. PT STATES HE IS EXPERIENCING INCREASED CONGESTION IN HIS NASAL PASSAGES R/T HUMIDIFIED O2. I EXPLAINED TO PT THAT I ADDED THE O2 YESTERDAY MORNING TO HELP HIM REST R/T HIM BEING UP ALL NIGHT COUGHING AND ALSO DUE TO HIS EXERTIONAL DYSPNEA YESTERDAY MORNING. PT STATES HE HAS SLEPT MUCH BETTER THIS SHIFT, AND IS BREATHING BETTER ALSO. CONTINUE TO MONITOR CLOSELY.
--- NOTE | 2016-12-30 07:17 | NUR ---
PT IN BED USING TABLET. DENIES NEEDS AT THIS TIME. WILL CONTINUE TO MONITOR.
[2016-12-30 08:44] VITALS: BP 182/105
--- NOTE | 2016-12-30 09:20 | NUR ---
ASSISTED PTS NURSE LIZZY REESE WITH IV PUSH ADMINISTRATION OF APRESOLINE FOR SBP >160. PT AND BOTH VERBALIZED UNDERSTANDING AND DENY ANY CURRENT NEEDS OR QUESTIONS. CL IN REACH, BED IN LOWEST, SIDE RAILS X2. WILL CPOC.
--- NOTE | 2016-12-30 09:55 | NUR ---
Nutrition Follow Up: Pt is eating 64% of meals on an AHA diet. Wt gain since admit noted. +BM 12/29/16. Meds noted. Labs reviewed. Rec continue current diet. Will continue to provide selective menus and honor food preferences within diet ordered. RD following.
[2016-12-30 12:04] VITALS: BP 147/94
[2016-12-30 15:41] VITALS: BP 149/83
[2016-12-30 19:00] VITALS: BP 116/68
--- NOTE | 2016-12-30 20:34 | NUR ---
PT AWAKE, ALERT, ORIENTED, AMBULATING TO BATHROOM, DENIES ANY NEEDS. PO MEDS GIVEN, PT STATES HE IS READY FOR BED. CONTINUE TO MONITOR CLOSELY. BED LOW, CALL LIGHT IN REACH, SIDE RAILS X 2, HOB 10 DEGREES.
[2016-12-31] VITALS: BP 147/73
[2016-12-31 04:00] VITALS: BP 166/91
[2016-12-31 05:23] LABS: BASOPHILS 0.4 % (0-2); EOSINOPHILS 6.1 % (0-7); HEMATOCRIT 33.8 % (42.0-54.0); HEMOGLOBIN 10.9 g/dL (13.5-17.5); IMMATURE GRANULOCYTES 0.4 % (0-5); LYMPHOCYTES 12.6 % (15-50); MCH 31.1 pg (26.0-34.0); MCHC 32.2 g/dL (31.0-37.0); MCV 96.3 fL (80.0-100.0); MEAN PLATELET VOLUME 10.4 fL (7.4-10.4); MONOCYTES 10.4 % (2-11); NEUTROPHILS 70.1 % (40-80); PLATELET COUNT 224 10x3/uL (130-400); RBC 3.51 10x6/uL (4.20-6.10); RDW 15.1 % (11.5-14.5); WBC 9.6 10x3/uL (4.8-10.8)
[2016-12-31 05:34] LABS: ANION GAP 11.2 mmol/L (8-16); CALCIUM 8.4 mg/dL (8.5-10.1); CARBON DIOXIDE 27.2 mmol/L (21.0-32.0); POTASSIUM - SERUM 3.4 mmol/L (3.5-5.1)
--- NOTE | 2016-12-31 07:10 | NUR ---
RECEIVED REPORT. ASSUMED CARE OF PATIENT. CALL LIGHT WITHIN REACH. PATIENT SITTING UP IN BED. DENIES NEEDS AT THIS TIME. RESP EVEN AND UNLABORED. NO DISTRSS.
--- NOTE | 2016-12-31 07:52 | NUR ---
PRN APRESOLINE ADMINISTERED FOR BP 178/108. BP REDUCED TO 170/79 AFTER INITIAL ADMINISTRATION.
--- NOTE | 2016-12-31 07:56 | NUR ---
BP NOW 166/87.
[2016-12-31 08:00] VITALS: BP 170/79
--- NOTE | 2016-12-31 11:40 | NUR ---
WALK TEST COMPLETED. PATIENT AMBULATED 250 FT WITHOUT DIFFICULTY. O2 SATURATION MONITORED THROUGHOUT ENTIRE WALK TEST, O2 SATURATION STAYED AT 97-98%. NO DYSPNEA.
[2016-12-31 12:00] VITALS: BP 140/70
[2016-12-31] MEDS ORDERED: NORVASC5 MG PO (15:28)
[2016-12-31] MEDS ORDERED: CATAPRES0.2 MG PO (15:29)
[2016-12-31] MEDS ORDERED: COREG25 MG PO (15:30)
[2016-12-31] MEDS ORDERED: PLAVIX75 MG PO (15:30)
[2016-12-31] MEDS ORDERED: ALDACTONE25 MG PO (15:30)
[2016-12-31] MEDS ORDERED: COZAAR100 MG PO (15:31)
[2016-12-31] MEDS ORDERED: TOPROL XL100 MG PO (15:32)
[2016-12-31] MEDS ORDERED: HYDRALAZINE HCL50 MG PO (15:32)
--- NOTE | 2016-12-31 15:51 | NUR ---
Late Entry [id number] Kira De Leon advised CM that patient' significant other was concerned about discharge and patient's needs. Chart reviewed and CM note. CM met with the patient at the bedside. He was alert and oriented x3. Was sitting OOB in the chair. He is anxious for discharge. Did not feel he had any additional needs. He has a friend who is following him home to assist with getting him settled. The friend is in addition to his S/O. He does have a son who lives in [place]. Cm advised if he does find he needs help his Primary can arrange. He will be be seeing his MD on Monday. Patient ambulated around the unit with his primary nurse, Alena. He maintained an O2 sat of 94%. Reportedly tolerated the activity well. He does want to make sure he gets his [facility] MDI when he leaves. He denies any other needs. CM spoke with Alena. Will follow to assist as needed.
--- NOTE | 2016-12-31 16:55 | NUR ---
1620 22 GAUGE IV REMOVED FROM RIGHT FOREARM. CATHETER TIP INTACT. NO BLEEDING FROM SITE. 2X2 GAUZE APPLIED AND SECURED WITH TAPE. TOLERATED IV REMOVAL WELL. 1625 TELEMETRY REMOVED 1630 DISCHARGE INSTRUCTIONS AND EDUCATION REVIEWED WITH PATIENT. MEDICATIONS REVIEWED SEVERAL TIMES. PATIENT HAD NO QUESTIONS FOR THIS MID LEVEL PRACTITIONER AFTER COMPLETING DISCHARGE INSTRUCTIONS. 1635 PATIENT ASSISTED TO WHEELCHAIR. PATIENT LEFT UNIT VIA WHEELCHAIR WITH ALL PERSONAL BELONGINGS. PATIENT LEFT UNIT IN NO DISTRESS WITH HOSPITAL STAFF AND HIS SPOUSE. NO DISTRESS UPON LEAVING UNIT.
== END 2016-12-31 16:35 | disposition home or self-care (01) | DRG 248 ==
LOC: EDSEX 00:51 → D.ER 00:51 → D.M2 03:09 → D.CVICU 03:09 → D.M2 12-28 16:40 → D.SDCHOLD 12-31 14:38 → D.M2 12-31 14:38
PROVIDERS: Emergency Medicine; Internal Medicine; Internal Medicine Interventional Cardiology; ADMIT Family Medicine
PROC: B2111ZZ Fluoroscopy of Multiple Coronary Arteries using Low Osmolar Contrast (ICD-10-PCS; 2016-12-24)
PROC: B2151ZZ Fluoroscopy of Left Heart using Low Osmolar Contrast (ICD-10-PCS; 2016-12-24)
PROC: 02703EZ Dilation of Coronary Artery, One Artery with Two Intraluminal Devices, Percutaneous Approach (ICD-10-PCS; principal; 2016-12-24 10:30)
PROC: 4A023N7 Measurement of Cardiac Sampling and Pressure, Left Heart, Percutaneous Approach (ICD-10-PCS; 2016-12-24 10:30)
DX: I21.4 Non-ST elevation (NSTEMI) myocardial infarction (principal); I50.21 Acute systolic (congestive) heart failure; T88.6XXA Anaphylactic reaction due to adverse effect of correct drug or medicament properly administered, initial encounter; I25.5 Ischemic cardiomyopathy; T50.8X5A Adverse effect of diagnostic agents, initial encounter; Y84.9 Medical procedure, unspecified as the cause of abnormal reaction of the patient, or of later complication, without mention of misadventure at the time of the procedure; E78.5 Hyperlipidemia, unspecified; I11.0 Hypertensive heart disease with heart failure; I48.91 Unspecified atrial fibrillation; E83.51 Hypocalcemia; N28.1 Cyst of kidney, acquired; G47.00 Insomnia, unspecified; E87.6 Hypokalemia

== ENCOUNTER 2017-01-01 07:53 | Inpatient (IN) | payer MEDICARE, OTHER ==
[~2017-01-01] VITALS: Ht 188 cm; Wt 103.6 kg
--- NOTE | ~2017-01-01 | CN ---
PATIENT NAME:ABDULLAHI MONTE JR MEDICAL RECORD: [id number] : 42 LOCATION:D. D.2104 ADMIT DATE: 01/02/17 ACCOUNT: [id number] CONSULTING PHYSICIAN: RAN DAY MD REFERRING PHYSICIAN: GENO GARAY MD DATE OF CONSULTATION: 01/02/2017 CONSULT REQUESTING PHYSICIAN: Geno Garay MD. REASON FOR CONSULTATION: Acute hypoxic respiratory failure and shortness of breath. HISTORY OF PRESENT ILLNESS: Mr. Monte is a 76-year-old gentleman who was just discharged 2 days ago after myocardial infarction and pulmonary edema. The patient had worsening shortness of breath, he felt like he is drowning. He has cough with whitish color sputum production. The patient came back to the ER yesterday with flash pulmonary edema and also there was leukocytosis and questionable infiltrate in the lower lobe. He denies any fever and chill. There are no night sweats. REVIEW OF SYSTEMS: Mainly in the history of present illness. PAST MEDICAL HISTORY: 1. Recent myocardial infarction, first week of December 2016. 2. Hypertension. 3. Ex-smoker. PAST SURGICAL HISTORY: Nonsignificant. ALLERGIES: HE IS ALLERGIC TO IODINE AND IV CONTRAST DYE. PRESENT MEDICATIONS: On [employer] was reviewed. PERSONAL AND SOCIAL HISTORY: The patient is an ex-smoker. He smoked for 25 years. He quit more than 30 years ago. He was smoking almost a pack a day. He is a nondrinker. FAMILY HISTORY: Noncontributory. PHYSICAL EXAMINATION: GENERAL: The patient is now lying comfortably in bed. He is not in acute respiratory distress. VITAL SIGNS: The blood pressure is a 158/84, pulse is 72, respirations 18, temperature is 98 and SpO2 is 94% to 96% on 2 liters nasal cannula. HEENT: Conjunctivae pink, sclerae nonicteric. NECK: Supple. No JVD. CHEST: The chest excursion is minimal on both sides, bilateral crackles. No wheezing. HEART: Rhythm regular, normal sound. No murmur. ABDOMEN: Soft. Bowel sounds present. No hepatosplenomegaly. RECTAL: Deferred. EXTREMITIES: No cyanosis, no clubbing, no pedal edema. SKIN: Warm, normal turgor. CENTRAL NERVOUS SYSTEM: The patient is awake and alert. There is no obvious cranial nerve abnormality. The gait was not tested. CONSULT REPORT [id number] ABDULLAHI MONTE JR IMAGING: Chest radiograph, there is cardiomegaly. There are bibasilar infiltrates. There is increased interstitial marking. There is possible pericardial effusion. LABORATORY DATA: CBC: WBC 11.2, hemoglobin 11.8, hematocrit 37.1, the platelet count 231 and neutrophils are 78.8%. OTHER LABORATORY DATA: Chemistry: Sodium 144, potassium 3.9, chloride 109, bicarbonate 25.1, BUN is 46 and creatinine is 1.8, that has increased to 2.1 today. The troponin is 0.57. ProBNP is 4146. IMPRESSION: 1. Acute hypoxic respiratory failure. 2. Bilateral lower lobe pneumonia, possible hospital-acquired pneumonia. 3. Pulmonary edema. 4. Congestive heart failure, possible systolic dysfunction with recent myocardial infarction. The cardiac echo is pending. 5. Pyjro-oc-pqymgft renal failure. 6. Ex-smoker. 7. Suspect chronic obstructive pulmonary disease. 8. Leukocytosis most likely secondary to pneumonia. RECOMMENDATION: 1. Start him on albuterol/ipratropium nebulizer. Start him on Levaquin and Zosyn to cover for Gram-negative rods as well as hospital-acquired pneumonia. 2. Continue Lasix. 3. Follow up labs and chest radiograph. Dr. Garay, thank you for involving me in the care of Mr. Monte. TRANSINT:[id number] Voice Confirmation ID: [id number] DOCUMENT ID: [id number] RAN DAY MD CC: GENO GARAY MD [id number] DICTATION DATE: 01/02/17 1411 EXTERMINATOR HELPER: 01/02/17 1731 ADM IN [facility] [address] [id number]
[~2017-01-01 07:53] MED LIST: ALAVERT10 MG/TAB PO; ALDACTONE25 MG PO; CATAPRES0.2 MG PO; COREG25 MG PO; COZAAR100 MG PO; EDARBYCLOR 40-1 EAC1 PO; FLUTICASONE PRO16 GM; HYDRALAZINE HCL50 MG PO; K-DUR20 MEQ PO; KLONOPIN0.5 MG PO; NORVASC5 MG PO; PLAVIX75 MG PO; PRAVACHOL40 MG PO; PROAIR HFA8.5 GM INH; TOPROL XL100 MG PO; ZYLOPRIM100 MG PO
[2017-01-01 09:09] LABS: TROPONIN-I 0.573 ng/mL (0.000-0.060)
[2017-01-01 10:01] LABS: ALBUMIN 2.9 g/dL (3.4-5.0); ANION GAP 13.8 mmol/L (8-16); BILIRUBIN - TOTAL 0.64 mg/dL (0.2-1.3); CALCIUM 8.2 mg/dL (8.5-10.1); CARBON DIOXIDE 25.1 mmol/L (21.0-32.0); CREATININE - SERUM 1.8 mg/dL (0.6-1.3); POTASSIUM - SERUM 3.9 mmol/L (3.5-5.1); PROTEIN - SERUM 6.2 g/dL (6.4-8.2)
[2017-01-01 10:23] LABS: BASOPHILS 0.3 % (0-2); EOSINOPHILS 3.1 % (0-7); HEMATOCRIT 37.1 % (42.0-54.0); HEMOGLOBIN 11.8 g/dL (13.5-17.5); IMMATURE GRANULOCYTES 0.7 % (0-5); LYMPHOCYTES 8.3 % (15-50); MCH 30.3 pg (26.0-34.0); MCHC 31.8 g/dL (31.0-37.0); MCV 95.1 fL (80.0-100.0); MONOCYTES 8.8 % (2-11); NEUTROPHILS 78.8 % (40-80); PLATELET COUNT 231 10x3/uL (130-400); RDW 15.2 % (11.5-14.5); WBC 11.2 10x3/uL (4.8-10.8)
--- NOTE | 2017-01-01 11:50 | NUR ---
RECEIVED PT TO ROOM 2104 ALERT O X3 WITH FAMILY IN ROOM. ASSESS AND HISTORY COMPLETE AND UPDATED MED LIST FOR MD REVIEW ON ROUNDS.
[2017-01-01 12:00] VITALS: BP 179/110; BMI 28.4
[2017-01-01 16:15] VITALS: BP 166/91
--- NOTE | 2017-01-01 20:12 | NUR ---
PT SITTING UP IN CHAIR, C/O NOT FEELING WELL, CONSTANT COUGH, AND UNABLE TO SLEEP R/T THE COUGH. I DID SPEAK TO DR. GARAY R/T THIS. SHE VERBALLY ADDED TESSALON PERLES, ROBITUSSIN, AND TEMAZEPAM TO PTS PRN MEDICATIONS. PT DENIES ANY OTHER NEEDS AT THIS TIME. CONTINUE TO MONITOR CLOSELY.
[2017-01-01 22:14] VITALS: BP 197/115
--- NOTE | 2017-01-01 23:50 | NUR ---
PT RESTING COMFORTABLY AT THIS TIME, IN NO ACUTE DISTRESS. PT IS LYING IN BED, EYES CLOSED, RESPIRATIONS EVEN AND UNLABORED. CONTINUE TO MONITOR CLOSELY.
[2017-01-02 00:45] VITALS: BP 137/94
[2017-01-02 04:00] VITALS: BP 175/101
--- NOTE | 2017-01-02 05:49 | NUR ---
PT STATES HE FEELS HIS CONGESTION IS COMPLICATED MORE BY SOME KIND OF RESPIRATORY ISSUE, POSSIBLY BRONCHITIS. PT STATES HE HAS A LOT OF MUCUS IN HIS CHEST THAT HE IS COUGHING UP, WELL FEELING STOPPED UP IN HIS HEAD. PT STATES THAT NOSE SPRAY WOULD HELP ALSO, HE IS HAVING MINIMAL BLEEDING WHEN HE BLOWS HIS NOSE. PT STATES THAT HE CAN TELL THE LASIX IS HELPING WELL WITH HIS INCREASED SOB. WHILE SPEAKING WITH DR. GARAY YESTERDAY DURING HER ROUNDS, I RECEIVED VERBAL ORDERS FOR SEVERAL MEDICATIONS, ONE BEING PRN HYDRALAZINE 20MG PRN SYSTOLIC B/P > 160. SINCE PHARMACY IS NOT HERE TO VERIFY THE ORDER, I WAS ONLY ABLE TO GIVE 10MG PER THE ORDER AVAILABILITY THROUGH THE [facility]. PT ALSO STATES THE PRN ROBITUSSIN DM AND TESSELON PERLE SEEMS TO HELP WITH HIS COUGH AND CONGESTION. PT IS RESTING COMFORTABLY AND DENIES ANY NEEDS AT THIS TIME. CONTINUE TO MONITOR CLOSELY.
--- NOTE | 2017-01-02 07:00 | NUR ---
AM ROUNDING DONE WITH PATIENT REPORTING THAT HE CAN "CLEAR MY LUNGS A LITTLE BETTER THIS AM". ON ROOM AIR AT PRESENT TIME. ON HEART MONITOR SHOWING CAF, HR 74. RIGHT UPPER SHOULDER SEEN WITH SALINE LOCK. DENIES NEEDS AT PRESENT TIME. WILL CPOC. CALL LIGHT IN USE.
--- NOTE | 2017-01-02 07:53 | NUR ---
AM BLOOD PRESSURE MEDS ARE GIVEN EARLY BLOOD PRESSURE IS STILL ELEVATED PAST PRN GIVEN.
[2017-01-02 08:00] VITALS: BP 180/101; BP 180/104
--- NOTE | 2017-01-02 09:22 | NUR ---
ANNY BURKS PAGED TO CLARIFY PRN APRESOLINE ORDER FOR TIME. AWAITING CALL BACK.
--- NOTE | 2017-01-02 09:57 | NUR ---
NEW ORDERS RECEIVED FROM ДМИТРИЙ.
[2017-01-02 11:30] LABS: BASOPHILS 0.3 % (0-2); EOSINOPHILS 2.9 % (0-7); HEMATOCRIT 36.7 % (42.0-54.0); HEMOGLOBIN 11.8 g/dL (13.5-17.5); IMMATURE GRANULOCYTES 0.5 % (0-5); LYMPHOCYTES 11.2 % (15-50); MCHC 32.2 g/dL (31.0-37.0); MCV 96.3 fL (80.0-100.0); MEAN PLATELET VOLUME 9.8 fL (7.4-10.4); MONOCYTES 8.1 % (2-11); PLATELET COUNT 259 10x3/uL (130-400); RBC 3.81 10x6/uL (4.20-6.10); RDW 15.2 % (11.5-14.5); WBC 10.5 10x3/uL (4.8-10.8)
[2017-01-02 11:45] LABS: ANION GAP 11.4 mmol/L (8-16); CALCIUM 8.3 mg/dL (8.5-10.1); CARBON DIOXIDE 29.2 mmol/L (21.0-32.0); CREATININE - SERUM 2.1 mg/dL (0.6-1.3); POTASSIUM - SERUM 3.6 mmol/L (3.5-5.1)
[2017-01-02 12:00] VITALS: BP 158/84
[2017-01-02 12:28] VITALS: Ht 188 cm; Wt 103.6 kg
--- NOTE | 2017-01-02 15:35 | NUR ---
Patient Name: ABDULLAHI POTTS Admission Status: ER Accout number: [id number] Admission Date: 01-02-2017 : 1940 Admission Diagnosis: Attending: ANA Current LOS: 1 Anticipated DC Date: Planned Disposition: Home Primary Insurance: MEDICARE A & B Discharge Planning Comments: * Is the patient Alert and Oriented? Yes 0 * How many steps to enter\exit or inside your home? NONE 0 * PCP DR. SORTO 0 * Pharmacy [facility] [address] [place] [address] ([facility]) 0 * Preadmission Environment Home with Family 0 * ADLs Independent 0 * Equipment None 0 * Other Equipment NO MEDICAL EQUIPMENT PROVIDER PREFERENCE 0 * List name and contact numbers for known caregivers / representatives who currently or will assist patient after discharge: [employer], SIGNIFICANT OTHER, 0 * Community resources currently utilized None 0 * Please name any agencies selected above. NONE 0 * Additional services required to return to the preadmission environment? No 0 * Can the patient safely return to the preadmission environment? Yes 0 * Has this patient been hospitalized within the prior 30 days at any hospital? Yes 0 CM MET WITH PT AND PROVIDED AND EXPLAINED MEDICARE OUTPATIENT OBSERVATION NOTICE. CM DISCUSSED DISCHARGE PLANNING AND NEEDS. PT REPORTS LIVING AT HOME INDEPENDENTLY WITH SIGNIFICANT OTHER. PT HAS NO MEDICAL EQUIPMENT AND NO OUTSIDE SERVICES ASSISTING IN THE HOME. CM DISCUSSED AVAILABILITY OF HOME HEALTH, REHAB SERVICES AND MEDICAL EQUIPMENT. PT DENIES DISCHARGE NEEDS OTHER THAN HE MAY NEED SOME OXYGENN. PT REPORTS HIS FAMILY WILL PICK HIM UP FOR DISCHARGE HOME. IMPORTANT MESSAGE FROM MEDICARE PROVIDED AND EXPLAINED. PT REPORTS HE MAY NEED OXYGEN. CM TO FOLLOW AND ASSIST WITH ANY IDENTIFIED DISCHARGE NEEDS. Senior Site Manager: Ravinder Spann
[2017-01-02 16:00] VITALS: BP 152/92
--- NOTE | 2017-01-02 17:39 | NUR ---
IV LASIX GIVEN SLOWLY TO RIGHT UPPER ARM/CHEST AREA WITH NO PROBLEMS. FLUSHED WELL WITH 10 CC NS. DENIES ANY FURTHER NEEDS AT PRESENT TIME. WILL CPOC.
[2017-01-02 19:45] VITALS: BP 169/97
--- NOTE | 2017-01-02 21:43 | NUR ---
PT RESTING COMFORTABLY, DENIES ANY NEEDS. CONTINUE TO MONITOR CLOSELY.
[2017-01-03] VITALS (8 sets, daily range): BP systolic 140–177; BP diastolic 73–106
[2017-01-03 05:40] LABS: BASOPHILS 0.5 % (0-2); EOSINOPHILS 3.3 % (0-7); HEMATOCRIT 33.1 % (42.0-54.0); HEMOGLOBIN 10.7 g/dL (13.5-17.5); IMMATURE GRANULOCYTES 0.4 % (0-5); LYMPHOCYTES 12.5 % (15-50); MCH 31.2 pg (26.0-34.0); MCHC 32.3 g/dL (31.0-37.0); MCV 96.5 fL (80.0-100.0); MEAN PLATELET VOLUME 10.6 fL (7.4-10.4); MONOCYTES 8.4 % (2-11); NEUTROPHILS 74.9 % (40-80); PLATELET COUNT 257 10x3/uL (130-400); RBC 3.43 10x6/uL (4.20-6.10); RDW 15.2 % (11.5-14.5); WBC 9.3 10x3/uL (4.8-10.8)
--- NOTE | 2017-01-03 05:53 | NUR ---
PT LYING IN BED, AWAKE, ALERT, ORIENTED, HOB 40 DEGREES. PT DENIES ANY CURRENT NEEDS. CONTINUE TO MONITOR CLOSELY.
[2017-01-03 06:02] LABS: ANION GAP 11.4 mmol/L (8-16); CALCIUM 7.9 mg/dL (8.5-10.1); CARBON DIOXIDE 29.1 mmol/L (21.0-32.0); CREATININE - SERUM 2.4 mg/dL (0.6-1.3); POTASSIUM - SERUM 3.5 mmol/L (3.5-5.1)
--- NOTE | 2017-01-03 07:55 | NUR ---
0712-AM ROUNDING DONE WITH NO COMPLAINTS OR REQUESTS PER PATIENT AT THIS PRESENT TIME. SALINE LOCK SEEN TO RIGHT UPPER ARM. ON ROOM AIR. ON HEART MONITOR SHOWING CAF, HR 85. NON SKID SOCKS ARE ON, 2+ BILATERAL LOWER LEGS EDEMA. REVIEWED PLAN OF CARE WITH PATIENT TO STARTING HIS PROBIOTIC AT 1100. GIBSONLisha REPORTS THAT HE HAS A HISTORY OF CDIFF. WILL CPOC.
--- NOTE | 2017-01-03 08:33 | EC ---
PATIENT:ABDULLAHI POTTS JR DATE OF SERVICE: 01/02/17 SEX: M MEDICAL RECORD: [id number] DATE OF : [birth year] LOCATION:D.M2 D.210 AGE OF PATIENT: 76 ADMISSION DATE: 01/02/17 REFERRING PHYSICIAN: INTERPRETING PHYSICIAN: FRANDY CARIAS MD ECHOCARDIOGRAM REPORT ECHO CHARGES 4 ECHO COMPLETE CLINICAL DIAGNOSIS: DYSPNEA ECHOCARDIOGRAPHIC MEASUREMENTS (adult normal given) AC root (d.<3.7cm) 3.5 cm LV Septum d (<1.2 cm> 1.5 cm Valve Excursion 2.0 cm LV Septum (systole) 1.9 cm Left Atria (s.<4.0cm> 3.9 cm LVPW d(<1.2cm) 1.4 cm RV (d.<2.3cm) 3.4 cm LVPW (sytole) 2.1 cm LV diastole(<5.6CM) 5.9 cm MV E-F(>70mm/sec) cm LV systole 3.6 cm LVOT Diameter 1.9 cm MV exc.(>10mm) cm Est.ejection fraction (50-75%) % Pericardial Effusion Y DOPPLER: LVIT cm/sec A cm/sec E 114 cm/sec LA cm/sec RVSP 36.1 mmHg LVOT 96.0 cm/sec AOP1/2T m/s Asc. Ao 128 cm/sec RVOT 65.0 cm/sec RA cm/sec PA 106 cm/sec AV Gradient Peak 6.6 mmHg AV Mean 3.6 mmHg AV Area 2.0 cm MV Gradient Peak 6.0 mmHg MV Mean 2.3 mmHg MV Area cm COMMENTS: Pv Installer Tech: Irais FOXOE Enterprise Manager: 3 Dr. Elizabeth TAPE# PACS DATE OF SERVICE: 01/02/2017 Adequate 2D echo, color flow, spectral Doppler and M-mode. LVH is present. LV internal dimensions are mildly dilated at 5.9 cm. LV is mildly reduced. Estimated EF 40% to 45%. Aortic valve sclerosis without stenosis by Doppler interrogation. The left atrium is normal at 3.5 cm. The mitral valve is mildly thickened. [id number] MR. Right-sided chamber is grossly normal. Mild TR. TRANSINT:[id number] Voice Confirmation ID: [id number] DOCUMENT ID: [id number] ECHOCARDIOGRAM REPORT [id number] ABDULLAHI POTTS JR, GREGORY A MD at 0833 CC: [id number] DICTATION DATE: 01/02/17 1428 STUDIO TECHNICIAN VIDEO OPERATOR: 01/02/17 1743 ADM IN [facility] [address] [id number]
--- NOTE | 2017-01-03 10:40 | NUR ---
DENIES NEEDS, PROBIOTIC GIVEN ORDERED.
--- NOTE | 2017-01-03 13:38 | NUR ---
AROUSED PATIENT HE WAS SLEEPING ON HIS RIGHT SIDE AND HIS HEART RATE DROPPED TO 53-60. AROUSES EASILY, DENIES ANY PAIN. HR UP TO 70.
--- NOTE | 2017-01-03 17:08 | NUR ---
SITTING ON SIDE OF BED EATING SUPPER. DENIES ANY NEEDS AT THIS TIME. WILL CONTINUE TO FOLLOW FOR ANY NEEDS.
--- NOTE | 2017-01-03 19:42 | NUR ---
PT AWAKE, ALERT, ORIENTED, DENIES ANY NEEDS. STATES HE IS FEEL SOME BETTER. CONTINUE TO MONITOR CLOSELY. BED LOW, CALL LIGHT IN REACH, SIDE RAILS X 2, HOB 30-35 DEGREES.
--- NOTE | 2017-01-04 03:12 | NUR ---
PT STILL HAVING A GREAT COUGH WITH SPUTUM, KEEPING HIM AWAKE, EVEN WITH TEMAZEPAM Q HS. PT IS ASKING FOR SOMETHING STRONGER FOR SLEEP, HE HAS NOT SLEPT IN THE LAST TWO NIGHTS. PT DENIES ANY OTHER NEEDS. CONTINUE TO MONITOR CLOSELY.
[2017-01-04 04:14] VITALS: BP 167/104
[2017-01-04 05:45] LABS: BASOPHILS 0.8 % (0-2); EOSINOPHILS 3.8 % (0-7); HEMATOCRIT 33.9 % (42.0-54.0); IMMATURE GRANULOCYTES 0.2 % (0-5); LYMPHOCYTES 11.8 % (15-50); MCH 31.3 pg (26.0-34.0); MCHC 32.4 g/dL (31.0-37.0); MCV 96.6 fL (80.0-100.0); MEAN PLATELET VOLUME 10.3 fL (7.4-10.4); MONOCYTES 6.8 % (2-11); NEUTROPHILS 76.6 % (40-80); PLATELET COUNT 270 10x3/uL (130-400); RBC 3.51 10x6/uL (4.20-6.10); RDW 15.1 % (11.5-14.5); WBC 9.3 10x3/uL (4.8-10.8)
[2017-01-04 05:57] LABS: ANION GAP 12.5 mmol/L (8-16); CALCIUM 8.2 mg/dL (8.5-10.1); CARBON DIOXIDE 28.2 mmol/L (21.0-32.0); CREATININE - SERUM 2.4 mg/dL (0.6-1.3); POTASSIUM - SERUM 3.7 mmol/L (3.5-5.1)
--- NOTE | 2017-01-04 07:35 | NUR ---
PT SITTING UP IN BED DENIES ANY NEEDS OTHER THAN SLEEP MEDICATION FOR TONIGHT. PT CLAIMS HE HASNT SLEPT IN A WHILE. WILL ASK DR WHEN THEY ROUND.
--- NOTE | 2017-01-04 08:26 | NUR ---
PT BP IS ABOVE 200S SYSTOLIC. PT GIVEN BP MEDS PER [facility] AND PRN MED. PT C/O SEVERE ANXIETY AND WANTS SOMETHING TO HELP WITH THAT. PAGED ДМИТРИЙ DAMON FULFILLMENT MAIL CLERK.
[2017-01-04 08:49] VITALS: BP 220/139
--- NOTE | 2017-01-04 10:40 | NUR ---
PT STATES THAT THE ATIVAN ONE TIME DOSE SEEMED TO REALLY HELP HIM. WANTS TO LAY DOWN AND NAP NOW. LET ДМИТРИЙ CAFETERIA DIRECTOR NOW THIS AND ALSO MENTIONED THE NEED FOR SOMETHING STRONGER FOR SLEEP
[2017-01-04 11:58] VITALS: BP 179/104
--- NOTE | 2017-01-04 12:18 | NUR ---
PT SONS HAVE CALLED TO CHECK ON PT SEVERAL TIMES. THEY ARE WANTING TO SPEAK WITH DR GARAY ABOUT HIS HEALTH. NOT HERE YET GAVE ДМИТРИЙ LABORER TAN HOUSE THEIR NUMBER SO THAT SHE CAN CALL WHEN SHE ROUNDS.
[2017-01-04 16:09] VITALS: BP 155/78
--- NOTE | 2017-01-04 18:34 | NUR ---
PT SITTING UP IN BED RESTING DENIES ANY NEEDS
--- NOTE | 2017-01-04 19:49 | NUR ---
PT IS RESTING IN BED WITH EYES OPEN. ALERT AND ORIENTED X 3. DENIES ANY PAIN OR DISCOMFORT AT THIS TIEM. O2 IS ON @ 2LPM PER NC. NO SOB NOTED. TELEMETRY UNIT IS ON AND INTACT. SR'S ARE UP X 2 IN BED. CALL LIGHT AND BEDSIDE TABLE ARE WITHIN EASY REACH.
[2017-01-04 20:00] VITALS: BP 162/105
--- NOTE | 2017-01-04 21:42 | NUR ---
PT IS RESTING IN BED WATCHING TV. NO NEEDS VOICED.
--- NOTE | 2017-01-04 23:50 | NUR ---
PT IS RESTING QUIETLY IN BED WITH EYES CLOSED. NO ACUTE DISTRESS NOTED.
[2017-01-05 01:25] VITALS: BP 152/87
--- NOTE | 2017-01-05 02:38 | NUR ---
PT RESTING IN BED WITH EYES CLOSED. AWOKE WHILE IV ABX HUNG, BUT DOZED BACK OFF QUICKLY.
--- NOTE | 2017-01-05 03:58 | NUR ---
BLOOD BANK CREDIT CLERK AT BEDSIDE TO OBTAIN VITALS, CALL LIGHT IN REACH. WILL CONTINUE WITH PLAN OF CARE.
[2017-01-05 04:12] VITALS: BP 150/98
--- NOTE | 2017-01-05 05:18 | NUR ---
PT RESTING IN BED WITH EYES OPEN. NO NEEDS VOICED.
[2017-01-05 05:58] LABS: BASOPHILS 0.7 % (0-2); EOSINOPHILS 3.7 % (0-7); HEMATOCRIT 33.2 % (42.0-54.0); HEMOGLOBIN 10.7 g/dL (13.5-17.5); IMMATURE GRANULOCYTES 0.1 % (0-5); LYMPHOCYTES 12.6 % (15-50); MCH 31.3 pg (26.0-34.0); MCHC 32.2 g/dL (31.0-37.0); MCV 97.1 fL (80.0-100.0); MEAN PLATELET VOLUME 10.4 fL (7.4-10.4); MONOCYTES 7.9 % (2-11); PLATELET COUNT 272 10x3/uL (130-400); RBC 3.42 10x6/uL (4.20-6.10); RDW 15.1 % (11.5-14.5); WBC 8.3 10x3/uL (4.8-10.8)
[2017-01-05 06:05] LABS: ANION GAP 11.3 mmol/L (8-16); CALCIUM 8.2 mg/dL (8.5-10.1); CARBON DIOXIDE 31.3 mmol/L (21.0-32.0); CREATININE - SERUM 2.5 mg/dL (0.6-1.3); POTASSIUM - SERUM 3.6 mmol/L (3.5-5.1)
--- NOTE | 2017-01-05 07:21 | NUR ---
PT SITTING UP IN BED DENIES ANY NEEDS SAID HE SLEPT REALLY GOOD LAST NIGHT AND FEELS MUCH BETTER THAN HE DID YESTERDAY. WILL CONT TO MONITOR
[2017-01-05 09:09] VITALS: BP 179/102
--- NOTE | 2017-01-05 12:47 | NUR ---
Nutrition follow-up: Diet: AHA PO intake ~55% average of last 6 meals Labs reviewed +BM Wt: 236# PO intake is fair to good at this time. RDN following.
[2017-01-05 12:50] VITALS: BP 163/95
[2017-01-05 16:53] VITALS: BP 158/103
--- NOTE | 2017-01-05 17:57 | NUR ---
PT SITTING UP IN BED DENIES NEEDS WATCHING TV
--- NOTE | 2017-01-05 19:40 | NUR ---
Received patient in bed rsting quietly, hall monitor on, rhythm Controlled A-Fib, right upper arm PIV is SL, oxygen on @2L/min, denies pain or discomfort at this time.
--- NOTE | 2017-01-05 20:59 | NUR ---
Given Restoril 15mg po PRN on patient's request for complaints of insomnia.
[2017-01-05 21:16] VITALS: BP 161/91
[2017-01-06] VITALS: BP 172/107
--- NOTE | 2017-01-06 02:31 | NUR ---
PRN Restoril deemed effective, patient has been sleeping for at least three hours. Respirations easy and regular. Remains asleep at this time.
--- NOTE | 2017-01-06 03:37 | NUR ---
Patient awake, states he has been restless and has not felt like he has slept at all. States he usually takes clonazepam for sleep at night.
[2017-01-06 04:35] VITALS: BP 165/99
[2017-01-06 05:14] LABS: BASOPHILS 0.4 % (0-2); HEMOGLOBIN 10.8 g/dL (13.5-17.5); IMMATURE GRANULOCYTES 0.2 % (0-5); LYMPHOCYTES 12.2 % (15-50); MCH 30.8 pg (26.0-34.0); MCHC 31.8 g/dL (31.0-37.0); MCV 96.9 fL (80.0-100.0); MEAN PLATELET VOLUME 10.3 fL (7.4-10.4); MONOCYTES 8.4 % (2-11); NEUTROPHILS 74.8 % (40-80); PLATELET COUNT 270 10x3/uL (130-400); RBC 3.51 10x6/uL (4.20-6.10); WBC 9.3 10x3/uL (4.8-10.8)
[2017-01-06 05:34] LABS: ANION GAP 9.1 mmol/L (8-16); CALCIUM 8.6 mg/dL (8.5-10.1); CARBON DIOXIDE 30.6 mmol/L (21.0-32.0); CREATININE - SERUM 2.5 mg/dL (0.6-1.3); POTASSIUM - SERUM 3.7 mmol/L (3.5-5.1)
--- NOTE | 2017-01-06 07:45 | NUR ---
PT SITTING UP IN BED DENIES ANY NEEDS WILL CONT TO MONITOR
[2017-01-06 09:33] VITALS: BP 159/94
[2017-01-06 12:04] VITALS: BP 149/80
[2017-01-06 16:15] VITALS: BP 160/91
--- NOTE | 2017-01-06 16:16 | NUR ---
PT SITTING UP IN BED DENIES NEEDS WILL CONT TO MONITOR
--- NOTE | 2017-01-06 17:53 | NUR ---
PT SITTING UP IN BED SLEEPING NO S/S DISTRESS NOTED RR EVEN AND UNLABORED.
[2017-01-06 19:00] VITALS: BP 158/99
--- NOTE | 2017-01-06 19:30 | NUR ---
Received patient resting in bed, quiet, respirations easy and regular. PIV in right upper arm is SL. Continues to have BLE edema. No complaints voiced at this time, denies pain or discomfort.
--- NOTE | 2017-01-06 19:30 | NUR ---
Received patient sitting up in chair, reports feeling stronger, denies having sweats, fever, or shakes. No problems with his colostomy bag, same intact. Denies pain or discomfort. PIV #20 in left arm is SL.
[2017-01-07] VITALS: BP 155/82
[2017-01-07 04:00] VITALS: BP 159/96
--- NOTE | 2017-01-07 05:19 | NUR ---
Slept for long periods, reports that Xanax helped him get much better sleep tonight. Denies pain or discomfort.
[2017-01-07 06:44] LABS: BASOPHILS 0.5 % (0-2); EOSINOPHILS 3.7 % (0-7); HEMATOCRIT 33.8 % (42.0-54.0); HEMOGLOBIN 10.9 g/dL (13.5-17.5); IMMATURE GRANULOCYTES 0.2 % (0-5); LYMPHOCYTES 11.8 % (15-50); MCHC 32.2 g/dL (31.0-37.0); MONOCYTES 9.2 % (2-11); NEUTROPHILS 74.6 % (40-80); PLATELET COUNT 258 10x3/uL (130-400); RBC 3.52 10x6/uL (4.20-6.10); RDW 14.8 % (11.5-14.5); WBC 9.9 10x3/uL (4.8-10.8)
[2017-01-07 06:55] LABS: CALCIUM 8.8 mg/dL (8.5-10.1); CARBON DIOXIDE 31.8 mmol/L (21.0-32.0); CREATININE - SERUM 2.5 mg/dL (0.6-1.3); POTASSIUM - SERUM 3.8 mmol/L (3.5-5.1)
--- NOTE | 2017-01-07 07:45 | NUR ---
AM ROUNDS - PT AWAKE IN BED. SIDE RAILS UP X1. MONITOR SHOWING CAF. PT IS ON 2L OX VIA NC. IV TO RIGHT UPPER ARM, SL. BED AT LOWEST LEVEL. CALL LOWRY IN USE/REACH. NO NEEDS AT THIS TIME. WILL CONTINUE TO MONITOR
[2017-01-07 07:56] VITALS: BP 171/101
[2017-01-07 11:41] VITALS: BP 166/89
--- NOTE | 2017-01-07 14:16 | NUR ---
PT AWAKE IN BED WITH NO NEEDS AT THIS TIME. WILL CONTINUE TO MONITOR
[2017-01-07 16:26] VITALS: BP 162/85
--- NOTE | 2017-01-07 19:45 | NUR ---
PT LYING IN BED WITH NO COMPLAINTS AT THIS TIME. HE IS IN GOOD SPIRITS AND STATES THAT HE IS COMFORTABLE AT THE MOMENT. WILL CONT TO MONITOR.
[2017-01-07 20:39] VITALS: BP 138/96
[2017-01-08] VITALS: BP 148/92
--- NOTE | 2017-01-08 00:45 | NUR ---
PT STATES THAT HE IS ANXIOUS AT THIS TIME B/C HE FEELS LIKE HE CAN'T BREATHE. NITESH, RT, AT BEDSIDE. INCREASED O2 RATE TO 3 L/HR. O2 SAT IS 98% PT STATES THAT HE FEELS OKAY AT THIS TIME AND THAT HE IS GOING TO TRY TO GO BACK TO SLEEP AT THIS TIME. SAFE TECHNICIAN AT BEDSIDE CHECKING VITALS AT THIS TIME. CALL LIGHT IN REACH. WILL CONT TO MONITOR.
--- NOTE | 2017-01-08 02:15 | NUR ---
PT AWAKE AND LYING IN BED AT THIS TIME. HE STATES THAT HE FEELS ANXIOUS, BUT HE STATES THAT THERE IS NOTHING I COULD DO FOR HIM AT THIS TIME AND THAT HE IS JUST GOING TO TRY TO GET SOME REST. STARTED ANTIBIOTIC. CALL LIGHT IN REACH. BED IN LOWEST POSITION. WILL CONT TO MONITOR.
[2017-01-08 04:00] VITALS: BP 148/87
--- NOTE | 2017-01-08 05:15 | NUR ---
PT RESTING PEACEFULLY AT THIS TIME WITH NO S/S OF DISTRESS NOTED. WILL CONT WITH POC.
--- NOTE | 2017-01-08 07:45 | NUR ---
AM ROUNDS - PT IS AWAKE IN BED. NO YELLOW BAND ON. 3L O2 VIA NC. MONITOR SHOWING CAF, HR 63. IV TO RIGHT UPPER ARM. BED AT LOWEST POSITION. CALL LOWRY IN USE/REACH. SIDE RAILS UP X2. NO NEEDS AT THIS TIME. WILL CONTINUE TO MONITOR
[2017-01-08 09:01] LABS: ANION GAP 8.6 mmol/L (8-16); CALCIUM 8.8 mg/dL (8.5-10.1); CARBON DIOXIDE 32.2 mmol/L (21.0-32.0); CREATININE - SERUM 2.7 mg/dL (0.6-1.3); POTASSIUM - SERUM 3.8 mmol/L (3.5-5.1)
[2017-01-08 09:46] VITALS: BP 147/82
[2017-01-08 12:26] VITALS: BP 175/96
[2017-01-08 16:06] VITALS: BP 162/83
--- NOTE | 2017-01-08 16:43 | NUR ---
PT IN BED EATING DINNER. NO NEEDS AT THIS TIME
--- NOTE | 2017-01-08 20:09 | NUR ---
PT AWAKE, ALERT, ORIENTED, STATES HE IS FEELING BETTER AND FEELS STABLE ENOUGH TO GO HOME TOMORROW. PT STATES HE HAS CHRONIC INCREASED ANXIETY, BUT HAS KLONOPIN AT HOME PRN. PT IS RESTING COMFORTABLY AT THIS TIME. CONTINUE TO MONITOR CLOSELY. BED LOW, CALL LIGHT IN REACH, SIDE RAILS X 2, HOB 35 DEGREES.
[2017-01-08 20:56] VITALS: BP 147/90
[2017-01-09 00:20] VITALS: BP 154/87
--- NOTE | 2017-01-09 04:06 | NUR ---
PT AWAKE, ALERT, ORIENTED, DRINKING BLACK COFFEE, DENIES ANY NEEDS. CONTINUE TO MONITOR CLOSELY.
[2017-01-09 06:13] VITALS: BP 142/84
[2017-01-09 06:13] LABS: BASOPHILS 0.8 % (0-2); EOSINOPHILS 4.8 % (0-7); HEMATOCRIT 34.9 % (42.0-54.0); HEMOGLOBIN 11.3 g/dL (13.5-17.5); IMMATURE GRANULOCYTES 0.3 % (0-5); LYMPHOCYTES 12.6 % (15-50); MCHC 32.4 g/dL (31.0-37.0); MCV 95.6 fL (80.0-100.0); MEAN PLATELET VOLUME 10.1 fL (7.4-10.4); NEUTROPHILS 72.5 % (40-80); PLATELET COUNT 251 10x3/uL (130-400); RBC 3.65 10x6/uL (4.20-6.10); RDW 14.4 % (11.5-14.5); WBC 8.6 10x3/uL (4.8-10.8)
[2017-01-09 06:23] LABS: ANION GAP 10.2 mmol/L (8-16); CALCIUM 8.6 mg/dL (8.5-10.1); CARBON DIOXIDE 32.5 mmol/L (21.0-32.0); CREATININE - SERUM 2.6 mg/dL (0.6-1.3); POTASSIUM - SERUM 3.7 mmol/L (3.5-5.1)
[2017-01-09 08:14] VITALS: BP 165/90
[2017-01-09] MEDS ORDERED: LASIX40 MG PO (11:17)
[2017-01-09 12:12] VITALS: BP 157/95
--- NOTE | 2017-01-09 15:34 | NUR ---
ALERT AND ORIENTED X4. FAMILY AT BEDSIDE. DC RT SHOULDER IV TIP INTACT. DISCHARGE INSTRUCTIONS GIVEN VERBALLY AND WRITTEN. DISCHARGE PAPERS SIGNED ON CHART. ESCORT TO RIDE VIA WHEELCHAIR. REMAINS FREE FROM INJURY.
--- NOTE | 2017-01-09 18:16 | NUR ---
Patient Name: ABDULLAHI POTTS Encounter No: [id number] : 1940 Primary Insurance: MEDICARE A & B Anticipated DC Date: 01-09-2017 Planned Disposition: Home DCP follow-up note: CM MET WITH PT IN ROOM TO DISCUSS DISCHARGE NEEDS AND PLANNING. CM DISCUSSED AVAILABILITY OF HOME HEALTH, REHAB SERVICES AND MEDICAL EQUIPMENT. PT DENIES DISCHARGE NEEDS. SPOUSE TO TRANSPORT HOME AT DISCHARGE. IMPORTANT MESSAGE FROM MEDICARE PROVIDED AND EXPLAINED. Ravinder Spann, CASE MANAGEMENT
--- NOTE | 2017-01-10 16:08 | DS ---
PATIENT:ABDULLAHI POTTS JR :[birth year] MEDICAL RECORD: [id number] DISCHARGE SUMMARY ADMISSION DATE: 01/02/17 DISCHARGE DATE: 01/09/17 ADMISSION DATE: 01/02/2017 DISCHARGE DATE: 01/09/2017 ADMITTING DIAGNOSES: Shortness of breath, pneumonia, congestive heart failure, acute kidney injury, atrial fibrillation, hypertension, hyperlipidemia. HOSPITAL COURSE: This is a gentleman of Dr. Mendez, admitted with diagnoses as outlined above. He was just dismissed from the hospital the day before admission, started filling up with fluid, was short of breath, could not lay flat and came back to the hospital. All events, lab procedures, diagnostic testing are well documented in the records. He was admitted, started on IV diuresis. All events, lab procedures, diagnostic testing are well documented in the records. CONSULTANTS: Dr. Fields, pulmonary. His recommendations were followed. Dr. Elizabeth, cardiology, his recommendations were followed. Dr. Downing, nephrology, his recommendations were followed. The patient was continued on IV diuresis. Labs and volume were closely followed. He was maximized on blood pressure medication. He was on treatment for pneumonia. Overall, his serum creatinine returned down to near baseline. His baseline thought to be around 2. He completed treatment for pneumonia. Physical therapy was consulted. He was ambulating with no difficulties. He is stable for dismissal home today. OBJECTIVE: VITAL SIGNS: Afebrile, pulse 72, respirations 16, blood pressure 154/87, 142/84. O2 sat 98% room air. LABORATORY DATA: White count 8.6, hemoglobin 11.3, platelets 251. Sodium 141, potassium 3.7, chloride 102, CO2 32.5, BUN 47, serum creatinine 0.2. Creatinine ranged this admission anywhere from 1.8 to 2.7, Dr. Downing said at the 2.7 range. He was stable for dismissal home, which was yesterday and he is down to 2.6 today and that he could be followed in the chronic kidney disease clinic. He is stable for dismissal from all other disciplines. View of note echo during the stay showed improved EF, was up to 40 to 45%. Please refer to report. He is dismissed home. DIAGNOSES: Shortness of breath, pneumonia, congestive heart failure, acute kidney on chronic kidney disease, atrial fibrillation, hypertension, hyperlipidemia, elevated troponin. In regards to bilateral lower lobe pneumonia, possible hospital healthcare-acquired pneumonia, pulmonary edema, congestive heart failure with possible systolic dysfunction with recent NC, echo with EF up to 40% to 45%, probable chronic obstructive pulmonary disease, leukocytosis has resolved. He has anemia of chronic renal disease. Please refer to med rec. We will have him follow up with house calls, follow up with renal at chronic kidney disease clinic. Follow up with [facility]. Follow up with Dr. Fields. Greater than 30 minutes was spent on this discharge. TRANSINT:[id number] Voice Confirmation ID: [id number] DOCUMENT ID: [id number] DISCHARGE SUMMARY REPORT [id number] ABDULLAHI POTTS JR Dictated By: ДМИТРИЙ BRADFORD RN I have interviewed/examined the above patient and agree with these documented findings. VALARIE VALENZUELA MD at 1608 CC: [id number] DICTATION DATE: 01/09/17 1207 CABLE MAKER: 01/10/17 0055 DIS IN 01/09/[id number] [place] [address]
== END 2017-01-09 15:35 | disposition home or self-care (01) | DRG 291 ==
LOC: D.ER 07:53 → OBSVTIME 10:53 → D.M2 10:53
PROVIDERS: Emergency Medicine; Internal Medicine Nephrology; ADMIT Family Medicine
DX: I13.0 Hypertensive heart and chronic kidney disease with heart failure and stage 1 through stage 4 chronic kidney disease, or unspecified chronic kidney disease (principal); J96.01 Acute respiratory failure with hypoxia; J18.9 Pneumonia, unspecified organism; I50.21 Acute systolic (congestive) heart failure; N18.4 Chronic kidney disease, stage 4 (severe); N17.9 Acute kidney failure, unspecified; J98.11 Atelectasis; J44.0 Chronic obstructive pulmonary disease with (acute) lower respiratory infection; I48.91 Unspecified atrial fibrillation; E83.51 Hypocalcemia; E78.5 Hyperlipidemia, unspecified; D63.1 Anemia in chronic kidney disease; I25.2 Old myocardial infarction; Z87.891 Personal history of nicotine dependence

== ENCOUNTER 2017-02-20 08:18 | Inpatient (IN) | payer MEDICARE, OTHER ==
[~2017-02-20 08:18] MED LIST changes: +LASIX40 MG PO
[2017-02-20 09:07] LABS: BASOPHILS 0.4 % (0-2); EOSINOPHILS 1.1 % (0-7); HEMATOCRIT 35.5 % (42.0-54.0); HEMOGLOBIN 11.6 g/dL (13.5-17.5); IMMATURE GRANULOCYTES 0.2 % (0-5); LYMPHOCYTES 5.4 % (15-50); MCHC 32.7 g/dL (31.0-37.0); MCV 94.9 fL (80.0-100.0); MEAN PLATELET VOLUME 10.1 fL (7.4-10.4); MONOCYTES 5.3 % (2-11); NEUTROPHILS 87.6 % (40-80); PLATELET COUNT 254 10x3/uL (130-400); RBC 3.74 10x6/uL (4.20-6.10); RDW 14.2 % (11.5-14.5); WBC 9.6 10x3/uL (4.8-10.8)
[2017-02-20 09:23] LABS: INR 1.11 (0.85-1.17); PROTIME 14.1 SECONDS (11.6-15.0)
[2017-02-20 10:00] LABS: ALBUMIN 3.6 g/dL (3.4-5.0); BILIRUBIN - TOTAL 0.5 mg/dL (0.2-1.3); CALCIUM 9.2 mg/dL (8.5-10.1); CARBON DIOXIDE 18.5 mmol/L (21.0-32.0); CREATININE - SERUM 2.5 mg/dL (0.6-1.3); MAGNESIUM - SERUM 2.3 mg/dL (1.8-2.4); PROTEIN - SERUM 6.9 g/dL (6.4-8.2)
[2017-02-20 10:01] LABS: ANION GAP 16.6 mmol/L (8-16); POTASSIUM - SERUM 5.1 mmol/L (3.5-5.1)
--- NOTE | 2017-02-20 11:31 | NUR ---
ALERT AND ORIENTED X4. ARRIVE TO ROOM VIA WHEELCHAIR FROM ER ACCOMPANIED BY SPOUSE. DENIES PAIN OR SOB. REPORTS SPITTING UP BLOOD. AMBULATORY. GAIT STEADY. REFUSE SCDs. CONTINUE PLAN OF CARE. CONTINUE ADMISSION PROCESS. BED LOCKED AND LOW. CALL LIGHT IN REACH. ONE SIDERAIL UP PER PATIENT REQUEST.
[2017-02-20] MEDS ORDERED: XANAX1 MG PO (11:43)
[2017-02-20] MEDS ORDERED: FLUTICASONE PRO16 GM NASAL (11:45)
[2017-02-20] MEDS ORDERED: PROVENTIL HFA6.7 GM INH (11:45)
[2017-02-20] MEDS ORDERED: MELATONIN10 M1 PO (11:46)
[2017-02-20 12:22] VITALS: BP 141/84; BMI 27.4
[2017-02-20 16:00] VITALS: BP 144/80
--- NOTE | 2017-02-20 20:35 | NUR ---
ADMIN SCHED MEDS AND NASAL SPRAY. CALLED PHARMACY FOR AFRIN NASAL SPRAY. REQUESTED DOOR CLOSED AND LIGHTS OFF TO SLEEP.
[2017-02-20 20:51] VITALS: BP 133/75
--- NOTE | 2017-02-21 01:00 | NUR ---
RECEIVING UPDRAFT TX. NO OTHER NEEDS VOICED.
[2017-02-21 01:15] VITALS: BP 150/90
--- NOTE | 2017-02-21 02:01 | NUR ---
AWAKE WATCHING TV. DENIES ANY NEEDS.
[2017-02-21 03:45] VITALS: BP 139/72
--- NOTE | 2017-02-21 04:30 | NUR ---
STEEL RULE DIE MAKER PRESENT IN ROOM. PATIENT DENIES ANY NEEDS OR DISCOMFORTS.
[2017-02-21 04:58] LABS: BASOPHILS 0.5 % (0-2); EOSINOPHILS 5.2 % (0-7); HEMOGLOBIN 10.8 g/dL (13.5-17.5); LYMPHOCYTES 17.9 % (15-50); MCHC 32.7 g/dL (31.0-37.0); MCV 94.8 fL (80.0-100.0); MEAN PLATELET VOLUME 9.8 fL (7.4-10.4); NEUTROPHILS 65.4 % (40-80); PLATELET COUNT 235 10x3/uL (130-400); RBC 3.48 10x6/uL (4.20-6.10); RDW 14.4 % (11.5-14.5)
[2017-02-21 05:10] LABS: WBC 5.5 10x3/uL (4.8-10.8)
[2017-02-21 05:16] LABS: APTT 40.1 SECONDS (22.8-39.4); INR 1.22 (0.85-1.17); PROTIME 15.3 SECONDS (11.6-15.0)
[2017-02-21 05:31] LABS: ALBUMIN 2.9 g/dL (3.4-5.0); BILIRUBIN - TOTAL 0.58 mg/dL (0.2-1.3); CALCIUM 8.2 mg/dL (8.5-10.1); CARBON DIOXIDE 20.2 mmol/L (21.0-32.0); MAGNESIUM - SERUM 2.2 mg/dL (1.8-2.4); PHOSPHOROUS 3.9 mg/dL (2.5-4.9); PROTEIN - SERUM 6.6 g/dL (6.4-8.2); VANCOMYCIN - TROUGH 6.8 ug/mL (10.0-20.0)
[2017-02-21 05:34] LABS: ANION GAP 12.7 mmol/L (8-16); POTASSIUM - SERUM 5.9 mmol/L (3.5-5.1)
[2017-02-21 08:00] VITALS: BP 156/90
[2017-02-21 12:00] VITALS: BP 168/88
[2017-02-21 14:07] VITALS: BMI 28.1
[2017-02-21 16:00] VITALS: BP 141/90
--- NOTE | 2017-02-21 21:20 | NUR ---
ADMIN SCHED PO MEDS. DENIES ANY NEEDS OR DISCOMFORTS. REQUESTED LIGHTS OFF AND DOOR CLOSED TO SLEEP.
[2017-02-21 21:26] VITALS: BP 129/77
[2017-02-22 06:10] LABS: BASOPHILS 0.8 % (0-2); EOSINOPHILS 6.9 % (0-7); HEMATOCRIT 32.9 % (42.0-54.0); HEMOGLOBIN 10.8 g/dL (13.5-17.5); IMMATURE GRANULOCYTES 0.3 % (0-5); LYMPHOCYTES 17.2 % (15-50); MCH 30.8 pg (26.0-34.0); MCHC 32.8 g/dL (31.0-37.0); MCV 93.7 fL (80.0-100.0); NEUTROPHILS 64.8 % (40-80); PLATELET COUNT 251 10x3/uL (130-400); RBC 3.51 10x6/uL (4.20-6.10); RDW 14.1 % (11.5-14.5); WBC 6.5 10x3/uL (4.8-10.8)
[2017-02-22 06:47] LABS: ALBUMIN 2.9 g/dL (3.4-5.0); ANION GAP 16.4 mmol/L (8-16); BILIRUBIN - TOTAL 0.49 mg/dL (0.2-1.3); CALCIUM 8.5 mg/dL (8.5-10.1); CARBON DIOXIDE 20.6 mmol/L (21.0-32.0); CREATININE - SERUM 3.1 mg/dL (0.6-1.3); PROTEIN - SERUM 6.7 g/dL (6.4-8.2)
[2017-02-22 07:59] VITALS: BP 142/86
[2017-02-22 12:03] VITALS: BP 153/90
[2017-02-22 16:00] VITALS: BP 165/95
--- NOTE | 2017-02-22 16:00 | NUR ---
ALERT AND ORIENTED X4. RESTING IN BED. RT AC IV INFILTRATED. STUDENT NURSE ATTEMPT TO RESITE X2 ATTEMPTS UNSUCCESSFUL. DC RT AC IV TIP INTACT. VASCULAR NURSE CONSULTED FOR PICC OR MIDLINE. IV SITE RT HAND 20G BY ETHAN VASCULAR NURSE. ETHAN STATES, "I WILL DO A MIDLINE TOMORROW." CONTROLLED A FIB 66bpm ON TELEMETRY. DENIES SOB OR PAIN. BED LOCKED AND LOW. CALL LIGHT IN REACH. TWO SIDERAILS UP.
--- NOTE | 2017-02-22 19:47 | NUR ---
ALERT/ORIENTED X 4 TALKING ON PHONE. DENIES PAIN OR ANY NEEDS. IV IN RT HAND INTACT SL. TELEMETRY SHOWS 79 CAFIB. ORIENTED TO CALL LIGHT FOR ANY NEEDS.
[2017-02-22 20:48] VITALS: BP 140/75
[2017-02-23] VITALS: BP 127/68
--- NOTE | 2017-02-23 00:10 | NUR ---
RECEIVING UPDRAFT TX. DENIES ANY NEEDS OR DISCOMFORTS.
[2017-02-23 06:13] LABS: BASOPHILS 0.7 % (0-2); EOSINOPHILS 7.6 % (0-7); HEMATOCRIT 33.9 % (42.0-54.0); HEMOGLOBIN 11.3 g/dL (13.5-17.5); IMMATURE GRANULOCYTES 0.1 % (0-5); LYMPHOCYTES 13.7 % (15-50); MCH 31.1 pg (26.0-34.0); MCHC 33.3 g/dL (31.0-37.0); MCV 93.4 fL (80.0-100.0); MEAN PLATELET VOLUME 9.8 fL (7.4-10.4); MONOCYTES 11.8 % (2-11); NEUTROPHILS 66.1 % (40-80); PLATELET COUNT 246 10x3/uL (130-400); RBC 3.63 10x6/uL (4.20-6.10); RDW 14.1 % (11.5-14.5); WBC 7.1 10x3/uL (4.8-10.8)
[2017-02-23 06:40] LABS: BILIRUBIN - TOTAL 0.42 mg/dL (0.2-1.3); CALCIUM 8.5 mg/dL (8.5-10.1); CARBON DIOXIDE 24.5 mmol/L (21.0-32.0); CREATININE - SERUM 3.3 mg/dL (0.6-1.3); POTASSIUM - SERUM 4.5 mmol/L (3.5-5.1); PROTEIN - SERUM 6.9 g/dL (6.4-8.2)
--- NOTE | 2017-02-23 07:15 | NUR ---
RECIEVED REPORT ON PATIENT, PATIENT IS ALERT AND ORIENTED AT THIS TIME. NAD NOTED AT THIS TIME. PATIENT DENIES ANY NEEDS OR PAIN AT THIS TIME. BED IS LOW AND LOCKED, CALL LIGHT IN REACH. WILL CONT TO MONITOR PATIENT. CPOC. CONTROLLED AFIB ON MONITOR WITH A RATE OF 65.
[2017-02-23 08:00] VITALS: BP 129/91
--- NOTE | 2017-02-23 08:15 | NUR ---
MORNING MEDICATIONS GIVEN, ASSESSMENT DONE. CPOC
[2017-02-23 10:14] LABS: APPEARANCE CLEAR (CLEAR); BACTERIA FEW /hpf (NONE SEEN); BILIRUBIN NEGATIVE (NEGATIVE); COLOR YELLOW (YELLOW); EPITHELIAL CELLS 0-5 /hpf (0-5); GLUCOSE NEGATIVE (NEGATIVE); HYALINE CAST 0-5 /lpf (NONE SEEN); KETONE NEGATIVE (NEGATIVE); MUCUS >1+ /lpf (NONE SEEN); NITRITE NEGATIVE (NEGATIVE); PROTEIN TRACE mg/dL (NEGATIVE); SPECIFIC GRAVITY 1.025 (1.005-1.020); UROBILINOGEN NORMAL (NORMAL); WAXY CAST 0-5 /lpf (NONE SEEN); WHITE CELLS - URINE 0-5 /hpf (0-5)
--- NOTE | 2017-02-23 10:43 | NUR ---
PATIENT SITTING UP IN BED, DENIES ANY PAIN OR NEEDS AT THIS TIME. CPOC
--- NOTE | 2017-02-23 11:35 | NUR ---
PATIENT RESTING, WAITING ON LUNCH DENIES ANY NEEDS AT THIS TIME. BED LOW AND LOCKED. CPOC
--- NOTE | 2017-02-23 13:00 | NUR ---
DR WILCOX AT BEDSIDE AT THIS TIME. CPOC
[2017-02-23 13:02] VITALS: BP 147/73
--- NOTE | 2017-02-23 15:19 | NUR ---
PATIENT WASHED UP, PATIENT DENIES ANY NEEDS. CONTROLLED AFIB RATE OF 61. CPOC
[2017-02-23 16:23] VITALS: BP 170/90
--- NOTE | 2017-02-23 18:33 | NUR ---
PATIENT RESTING, NAD NOTED. DENIES ANY NEEDS AT THIS TIME. CPOC
--- NOTE | 2017-02-23 19:15 | NUR ---
PT IN BED. DENIES NEEDS AT THIS TIME WILL CONTINUE TO MONITOR
[2017-02-23 20:00] VITALS: BP 118/72
--- NOTE | 2017-02-23 21:46 | NUR ---
IV IN LEFT HAND WAS OUT. CATHETER TIP INTACT. RESITED IV TO RIGHT FOREARM 1 STICK PT TOLERATED WELL.
[2017-02-24] VITALS: BP 123/62
[2017-02-24 04:00] VITALS: BP 132/72
[2017-02-24 05:23] LABS: BASOPHILS 0.6 % (0-2); EOSINOPHILS 6.8 % (0-7); HEMATOCRIT 32.7 % (42.0-54.0); HEMOGLOBIN 10.7 g/dL (13.5-17.5); IMMATURE GRANULOCYTES 0.1 % (0-5); MCH 30.6 pg (26.0-34.0); MCHC 32.7 g/dL (31.0-37.0); MCV 93.4 fL (80.0-100.0); MEAN PLATELET VOLUME 9.9 fL (7.4-10.4); MONOCYTES 8.6 % (2-11); NEUTROPHILS 68.9 % (40-80); PLATELET COUNT 238 10x3/uL (130-400); RDW 14.2 % (11.5-14.5); WBC 8.1 10x3/uL (4.8-10.8)
[2017-02-24 05:39] LABS: ALBUMIN 2.9 g/dL (3.4-5.0); ANION GAP 14.4 mmol/L (8-16); BILIRUBIN - TOTAL 0.4 mg/dL (0.2-1.3); CALCIUM 8.6 mg/dL (8.5-10.1); CARBON DIOXIDE 23.9 mmol/L (21.0-32.0); CREATININE - SERUM 2.9 mg/dL (0.6-1.3); POTASSIUM - SERUM 4.3 mmol/L (3.5-5.1); PROTEIN - SERUM 6.3 g/dL (6.4-8.2)
--- NOTE | 2017-02-24 07:30 | NUR ---
REPORT RECIEVED. RR EVEN AND UNLABORED. PT ALERT AND ORIENTED X4. PT DENIES NEEDS AT THIS TIME. WILL CTM.
[2017-02-24 07:43] LABS: CREATININE - URINE 121.6 mg/dL (30-125); PRO/CRE RATIO URINE 0.3 mg/g; PROTEIN - URINE 36.8 mg/dL (0.0-11.9)
[2017-02-24 08:22] VITALS: BP 132/79
--- NOTE | 2017-02-24 08:50 | NUR ---
PT REQUESTING A PRO-BIOTIC. PT REPORTS HX OF C-DIFF. TALKED TO GABRIELE [employer]NAL CIVIL DIVISION COMMANDER DEPUTY SHERIFF AND GAVE VERBAL ORDER FOR OCTAVIO. WILL GIVE AROUND LUNCH TIME AND CTM.
--- NOTE | 2017-02-24 10:21 | NUR ---
Nutrition Follow Up: Pt is eating 97% meal avg on an AHA diet. +BM 02/20/17. Wt stable. Labs reviewed. Meds noted. Rec continue current diet. RD following.
[2017-02-24 11:48] VITALS: BP 136/76
[2017-02-24 16:04] VITALS: BP 140/76
--- NOTE | 2017-02-24 18:15 | NUR ---
PT RESTING QUIETLY, RR EVEN AND ULABORED. PT DENIES NEEDS AT THIS TIME. WILL GIVE REPORT ON PT CONDITION FOR THE DAY.
[2017-02-24 19:00] VITALS: BP 132/70
--- NOTE | 2017-02-24 19:22 | NUR ---
PT IN BED RESTING. AROUSES TO VOICE. DENIES NEEDS AT THIS TIME WILL CONTINUE TO MONITOR.
[2017-02-25] VITALS: BP 125/74
[2017-02-25 04:00] VITALS: BP 140/74
[2017-02-25 05:51] LABS: BASOPHILS 0.6 % (0-2); HEMATOCRIT 32.1 % (42.0-54.0); HEMOGLOBIN 10.6 g/dL (13.5-17.5); IMMATURE GRANULOCYTES 0.1 % (0-5); LYMPHOCYTES 13.7 % (15-50); MCH 30.9 pg (26.0-34.0); MCV 93.6 fL (80.0-100.0); MEAN PLATELET VOLUME 9.9 fL (7.4-10.4); MONOCYTES 11.9 % (2-11); NEUTROPHILS 67.7 % (40-80); PLATELET COUNT 221 10x3/uL (130-400); RBC 3.43 10x6/uL (4.20-6.10); RDW 14.4 % (11.5-14.5); WBC 7.2 10x3/uL (4.8-10.8)
[2017-02-25 06:13] LABS: ALBUMIN 2.7 g/dL (3.4-5.0); ANION GAP 11.6 mmol/L (8-16); BILIRUBIN - TOTAL 0.37 mg/dL (0.2-1.3); CALCIUM 8.1 mg/dL (8.5-10.1); CARBON DIOXIDE 26.3 mmol/L (21.0-32.0); CREATININE - SERUM 2.6 mg/dL (0.6-1.3); POTASSIUM - SERUM 3.9 mmol/L (3.5-5.1); PROTEIN - SERUM 6.5 g/dL (6.4-8.2)
--- NOTE | 2017-02-25 07:20 | NUR ---
REPORT RECIEVED. PT RESTING QUIELTY, RR EVEN AND UNLABORED. PT DENIES NEEDS AT THIS TIME. ASSESSMENT PERFORMED. WILL CTM.
[2017-02-25 08:00] VITALS: BP 139/83
[2017-02-25 12:00] VITALS: BP 126/73
[2017-02-25 16:00] VITALS: BP 128/73
--- NOTE | 2017-02-25 18:27 | NUR ---
PT RESTING QUILETY, RR EVEN AND UNLABORED. PT DENIES NEEDS AT THIS TIME. WILL GIVE REPORT ON PT CONDTION FOR THE DAY.
--- NOTE | 2017-02-25 19:21 | NUR ---
RECEIVED REPORT, WILL ASSUME CARE OF PT, PT DENIES ANY NEEDS, BED IS LOW, SRX2, CALL LIGHT IN REACH, WILL CONTINUE PLAN OF CARE
[2017-02-25 20:00] VITALS: BP 140/72
[2017-02-26] VITALS: BP 128/57
--- NOTE | 2017-02-26 03:21 | NUR ---
ASSESSMENT COMPLETE, SEE FLOWSHEET, PT SLEEPING, BED IS LOW, SRX2, CALL LIGHT IN REACH, WILL CONTINUE PLAN OF CARE
[2017-02-26 04:00] VITALS: BP 130/63
--- NOTE | 2017-02-26 05:35 | NUR ---
PT IS RESTING WITH NO DISTRESS. CALL LIGHT IN REACH. CPOC.
[2017-02-26 06:07] LABS: ANION GAP 12.6 mmol/L (8-16); CALCIUM 8.4 mg/dL (8.5-10.1); CARBON DIOXIDE 26.2 mmol/L (21.0-32.0); CREATININE - SERUM 2.4 mg/dL (0.6-1.3); POTASSIUM - SERUM 3.8 mmol/L (3.5-5.1)
--- NOTE | 2017-02-26 06:23 | NUR ---
HAVING TO WAIT ON K+ LEVEL TO COME BACK, TO SEE IF KAYEXELATE WILL BE GIVEN
--- NOTE | 2017-02-26 06:33 | NUR ---
KAYEXELATE NOT GIVEN K+ 3.8
--- NOTE | 2017-02-26 07:20 | NUR ---
REPORT RECIEVED. PT DENIES NEEDS AT THIS TIME. RR EVEN AND UNLABORED. ASSESSMENT PERFORMED. WILL CTM.
[2017-02-26 08:00] VITALS: BP 150/87
[2017-02-26 16:00] VITALS: BP 136/77
--- NOTE | 2017-02-26 18:13 | NUR ---
PT RESTING QUIETLY, RR EVEN AND UNLABORED. PT DENIES NEEDS AT THIS TIME. WILL GIVE REPORT ON PT CONDTION FOR THE DAY.
[2017-02-26 19:00] VITALS: BP 122/71; BP 152/80
--- NOTE | 2017-02-26 19:38 | NUR ---
RECEIVED REPORT, WILL ASSUME CARE OF PT, PT WATCHING TV, DENIES ANY NEEDS, BED IS LOW, SRX2, CALL LIGHT IN REACH, WILL CONTINUE PLAN OF CARE
--- NOTE | 2017-02-26 20:07 | NUR ---
Is the patient Alert and Oriented? Yes 0 * How many steps to enter\exit or inside your home? none 0 * PCP DR Lawrence 0 * Pharmacy [facility] [address] [facility] / [place] [place] 0 * Preadmission Environment Home Alone 0 * ADLs Independent 0 * Equipment None 0 * Other Equipment N/A 0 * List name and contact numbers for known caregivers / representatives who currently or will assist patient after discharge: Elo Link - [place]- [phone] 0 * Community resources currently utilized None 0 * Please name any agencies selected above. N/A 0 * Additional services required to return to the preadmission environment? No 0 * Can the patient safely return to the preadmission environment? Yes 0 * Has this patient been hospitalized within the prior 30 days at any hospital? No
--- NOTE | 2017-02-26 20:14 | NUR ---
CM met with the patient at the bedside. He is alert and oriented x4. Plan for return to home at discharge. Denies he has any needs. He was independent prior to admission. States he has ambulated in his room and in the hallway without difficulty or shortness of breath. States " I am breathing better today than I have in a while." His friend , Elo Link, will provide transportation to home. Patient was not receiving any home health services prior to admission and denies any need at discharge.
[2017-02-27] VITALS: BP 122/71
--- NOTE | 2017-02-27 03:24 | NUR ---
ASSESSMENT COMPLETE, SEE FLOWSHEET, PT SLEEPING, BED IS LOW, SRX2, CALL LIGHT IN REACH, WILL CONTINUE PLAN OF CARE
[2017-02-27 04:22] VITALS: BP 114/69
[2017-02-27 08:00] VITALS: BP 145/83
[2017-02-27 12:00] VITALS: BP 157/84
--- NOTE | 2017-02-27 12:44 | NUR ---
Patient Name: ABDULLAHI POTTS Encounter No: [id number] : 1940 Primary Insurance: MEDICARE A & B Anticipated DC Date: 02-27-2017 Planned Disposition: Home DCP follow-up note: CM MET WITH PT IN ROOM TO DISCUSS DISCHARGE NEEDS AND PLANNING. CM DISCUSSED AVAILABILITY OF HOME HEALTH, REHAB SERVICES AND MEDICAL EQUIPMENT. PT DENIES DISCHARGE NEEDS. CM OFFERED TO HAVE HOME HEALTH CALL PT AFTER DISCHARGE HOME IN A FEW DAYS TO SEE IF PT IS OK OR MAY NEED HOME HEALTH AT THAT TIME. PT DECLINED. PT UNDERSTANDS HE WILL HAVE HOUSECALLS VISITING HIM HE HAS HAD THEM IN THE PAST AND DOESN'T SEE THE NEED FOR HOUSECALLS. PT REPORTS HE WILL SPEAK TO DR. SORTO AT HIS FOLLOW UP APPOINTMENT ABOUT HOUSECALLS. PT'S GIRLFRIEND HERE TO TRANSPORT HOME AT DISCHARGE TODAY. IMPORTANT MESSAGE FROM MEDICARE PROVIDED AND EXPLAINED. Ravinder Spann, CASE MANAGEMENT
--- NOTE | 2017-02-27 14:52 | NUR ---
ALERT AND ORIENTED X4. RESTING IN BED. SPOUSE AT BEDSIDE. DC RT FA IV TIP INTACT. DISCHARGE INSTRUCTIONS GIVEN VERBALLY AND WRITTEN. DISCHARGE PAPERS SIGNED ON CHART. ESCORT TO RIDE VIA WHEELCHAIR. REMAINS FREE FROM INJURY.
[2017-02-28 18:10] LABS: ANCA - ANTIMYELOPEROXIDASE <9.0 U/mL (0.0-9.0); ANCA - ANTIPROTEINASE 3 <3.5 U/mL (0.0-3.5); ANCA - ATYPICAL <1:20 titer (Neg:<1:20); ANCA - CYTOPLASMIC <1:20 titer (Neg:<1:20); ANCA - PERINUCLEAR <1:20 titer (Neg:<1:20)
== END 2017-02-27 15:12 | disposition home or self-care (01) | DRG 178 ==
LOC: D.ER 08:18 → D.M2 10:43
PROVIDERS: Emergency Medicine; Internal Medicine Nephrology; Internal Medicine Pulmonary Disease; ADMIT Family Medicine
DX: J15.6 Pneumonia due to other Gram-negative bacteria (principal); J98.11 Atelectasis; E87.2 Acidosis; I13.0 Hypertensive heart and chronic kidney disease with heart failure and stage 1 through stage 4 chronic kidney disease, or unspecified chronic kidney disease; I50.22 Chronic systolic (congestive) heart failure; N17.9 Acute kidney failure, unspecified; D68.9 Coagulation defect, unspecified; E44.0 Moderate protein-calorie malnutrition; J15.212 Pneumonia due to Methicillin resistant Staphylococcus aureus; N18.9 Chronic kidney disease, unspecified; I25.10 Atherosclerotic heart disease of native coronary artery without angina pectoris; Z95.5 Presence of coronary angioplasty implant and graft; I48.2 Chronic atrial fibrillation; E78.5 Hyperlipidemia, unspecified; D63.1 Anemia in chronic kidney disease; E87.5 Hyperkalemia; Z68.27 Body mass index [BMI] 27.0-27.9, adult; N28.1 Cyst of kidney, acquired

== ENCOUNTER 2017-04-17 13:22 | Inpatient (IN) | payer MEDICARE, OTHER ==
--- NOTE | 2017-04-16 19:00 | NUR ---
RECIEVED UP IN BED WITH EYES OPEN AND TV ON. PLEASANT AND COOPERATIVE. IV TO R WRIST WITH D5NS @ KVO. O2@ 2 LITERS PER N/C. HOB ELEVATED AND RESP. EVEN AND UNLABORES. DENIES ANY PAIN OR NEEDS AT THIS TIME.
[~2017-04-17] VITALS: Ht 188 cm; Wt 103.2 kg
[~2017-04-17 13:22] MED LIST changes: +FLUTICASONE PRO16 GM NASAL; +MELATONIN10 M1 PO; +PROVENTIL HFA6.7 GM INH; +XANAX1 MG PO
[2017-04-17 14:09] VITALS: BP 183/119; BMI 27.2
--- NOTE | 2017-04-17 14:23 | NUR ---
PT A DIRECT ADMIT FROM OFFICE. HVAC/R SERVICE TECHNICIAN ASSESSMENT COMPLETED. PT FAMILAR WITH OUR STAFF AND UNIT FROM PREVIOUS ADMISSIONS. PT DENIES ANY CURRENT PAIN OR NEEDS AT THSI TIME. CL IN REACH, BED IN LOWEST, SIDE RAILS X2. WILL CPOC.
[2017-04-17 15:33] LABS: BASOPHILS 0.6 % (0-2); EOSINOPHILS 2.1 % (0-7); HEMATOCRIT 40.5 % (42.0-54.0); HEMOGLOBIN 12.8 g/dL (13.5-17.5); IMMATURE GRANULOCYTES 0.2 % (0-5); MCH 29.9 pg (26.0-34.0); MCHC 31.6 g/dL (31.0-37.0); MCV 94.6 fL (80.0-100.0); MEAN PLATELET VOLUME 10.4 fL (7.4-10.4); MONOCYTES 7.1 % (2-11); RBC 4.28 10x6/uL (4.20-6.10); RDW 14.8 % (11.5-14.5); WBC 12.8 10x3/uL (4.8-10.8)
[2017-04-17 15:49] LABS: PLATELET COUNT 398 10x3/uL (130-400)
[2017-04-17 16:00] VITALS: BP 185/122
[2017-04-17 16:07] LABS: ALBUMIN 3.4 g/dL (3.4-5.0); BILIRUBIN - TOTAL 0.66 mg/dL (0.2-1.3); CALCIUM 8.9 mg/dL (8.5-10.1); CARBON DIOXIDE 25.6 mmol/L (21.0-32.0); CREATININE - SERUM 1.8 mg/dL (0.6-1.3); POTASSIUM - SERUM 3.6 mmol/L (3.5-5.1); PROTEIN - SERUM 7.3 g/dL (6.4-8.2)
--- NOTE | 2017-04-17 18:35 | NUR ---
UP IN BEDSIDE CHAIR. STATES HES BREATHING BETTER. IV INFUSING WELL.
--- NOTE | 2017-04-17 19:22 | NUR ---
RECEIVED REPORT, WILL ASSUME CARE OF PT, PT LAYING QUIETLY, DENIES ANY NEEDS, BED IS LOW, SRX2, CALL LIGHT IN REACH, WILL CONTINUE PLAN OF CARE
[2017-04-17 20:11] VITALS: BP 158/97
--- NOTE | 2017-04-18 00:15 | NUR ---
ROUNDING ON PT'S MADE. NO NEEDS VOICED. DENIES ANY CURRENT C/O PAIN. WEIGHT CLERK IN ROOM TO DO VS. CALL LIGHT WITHIN REACH. NURSE STATES NO CHANGES NOTED SINCE INITIAL ASSESSMENTS. WILL CONT TO MONITOR.
--- NOTE | 2017-04-18 00:26 | NUR ---
PT SLEEPING, BED IS LOW, SRX2, NEW ANTIBONIC INFUSING ORDER, CALL LIGHT IN REACH, WILL CONTINUE PLAN OF CARE
[2017-04-18 00:31] VITALS: BP 130/89
[2017-04-18 04:24] VITALS: BP 168/121
[2017-04-18 04:47] LABS: BASOPHILS 0.6 % (0-2); EOSINOPHILS 1.9 % (0-7); HEMATOCRIT 38.4 % (42.0-54.0); IMMATURE GRANULOCYTES 0.2 % (0-5); LYMPHOCYTES 15.2 % (15-50); MCH 29.6 pg (26.0-34.0); MCHC 31.3 g/dL (31.0-37.0); MCV 94.8 fL (80.0-100.0); MEAN PLATELET VOLUME 10.5 fL (7.4-10.4); MONOCYTES 6.9 % (2-11); NEUTROPHILS 75.2 % (40-80); PLATELET COUNT 347 10x3/uL (130-400); RBC 4.05 10x6/uL (4.20-6.10); RDW 14.8 % (11.5-14.5); WBC 9.6 10x3/uL (4.8-10.8)
[2017-04-18 05:15] LABS: ALBUMIN 3.1 g/dL (3.4-5.0); ANION GAP 15.1 mmol/L (8-16); BILIRUBIN - TOTAL 0.9 mg/dL (0.2-1.3); CALCIUM 8.8 mg/dL (8.5-10.1); CARBON DIOXIDE 25.4 mmol/L (21.0-32.0); CREATININE - SERUM 2.2 mg/dL (0.6-1.3); MAGNESIUM - SERUM 1.6 mg/dL (1.8-2.4); PHOSPHOROUS 3.8 mg/dL (2.5-4.9); POTASSIUM - SERUM 3.5 mmol/L (3.5-5.1); PROTEIN - SERUM 7.1 g/dL (6.4-8.2)
--- NOTE | 2017-04-18 07:00 | NUR ---
RECEIVED REPORT. ASSUMED CARE OF PATIENT. CALL LIGHT WITHIN REACH. PATIENT SITTING TO SIDE OF BED. RESP EVEN AND UNLABORED. DENIES PAIN. NO DISTRESS.
[2017-04-18 08:14] VITALS: BP 165/115
[2017-04-18 12:13] VITALS: BP 147/91
[2017-04-18 12:30] VITALS: Ht 188 cm; Wt 103.2 kg
--- NOTE | 2017-04-18 12:46 | NUR ---
PATIENT SITTING IN RECLINER AT BEDSIDE. NO DISTRESS. CALL LIGHT WITHIN REACH. DENIES NEEDS.
--- NOTE | 2017-04-18 13:54 | NUR ---
PATIENT REFUSED SCDS AT THIS TIME.
--- NOTE | 2017-04-18 13:54 | NUR ---
BLADDER SCANNED PER ORDER - RESULT = 57 ML IN BLADDER. SCANNED X 2 TO CONFIRM.
[2017-04-18 14:52] VITALS: BP 146/103
--- NOTE | 2017-04-18 17:17 | NUR ---
SITTING TO SIDE OF BED CONSUMING PM MEAL. NO DISTRESS. CALL LIGHT WITHIN REACH. DENIES NEEDS.
--- NOTE | 2017-04-18 18:05 | NUR ---
PATIENT RESTING IN BED WITH EYES OPEN. DENIES NEEDS AT THIS TIME. CALL LIGHT WITHIN REACH. NO DISTRESS.
[2017-04-18 20:06] VITALS: BP 133/74
[2017-04-19 00:45] VITALS: BP 158/109
[2017-04-19 05:09] LABS: BASOPHILS 0.6 % (0-2); EOSINOPHILS 4.5 % (0-7); HEMATOCRIT 35.2 % (42.0-54.0); HEMOGLOBIN 11.1 g/dL (13.5-17.5); IMMATURE GRANULOCYTES 0.2 % (0-5); LYMPHOCYTES 12.7 % (15-50); MCH 29.6 pg (26.0-34.0); MCHC 31.5 g/dL (31.0-37.0); MCV 93.9 fL (80.0-100.0); MEAN PLATELET VOLUME 10.3 fL (7.4-10.4); MONOCYTES 9.9 % (2-11); NEUTROPHILS 72.1 % (40-80); PLATELET COUNT 296 10x3/uL (130-400); RBC 3.75 10x6/uL (4.20-6.10); RDW 14.9 % (11.5-14.5); WBC 8.4 10x3/uL (4.8-10.8)
[2017-04-19 05:11] VITALS: BP 146/98
[2017-04-19 05:27] LABS: ALBUMIN 2.9 g/dL (3.4-5.0); ANION GAP 15.7 mmol/L (8-16); BILIRUBIN - TOTAL 0.63 mg/dL (0.2-1.3); CALCIUM 8.5 mg/dL (8.5-10.1); CARBON DIOXIDE 26.1 mmol/L (21.0-32.0); CREATININE - SERUM 2.4 mg/dL (0.6-1.3); POTASSIUM - SERUM 3.8 mmol/L (3.5-5.1); PROTEIN - SERUM 6.3 g/dL (6.4-8.2)
--- NOTE | 2017-04-19 07:25 | NUR ---
ASSESSMENT COMPLETED. TELEMERTY SHOWS CAF. 02 AT 2 L/M PER NC. LEFT HAND SL. ALERT AND ORIENTED. UP AB MARGE. WALKS WITH PT. B/P STABLE. WILL MONITOR
[2017-04-19 08:15] VITALS: BP 144/98
[2017-04-19 12:14] VITALS: BP 157/87
[2017-04-19 16:02] VITALS: BP 148/95
--- NOTE | 2017-04-19 16:49 | NUR ---
Patient Name: ABDULLAHI POTTS Admission Status: Elective Accout number: [id number] Admission Date: 04-17-2017 : 1940 Admission Diagnosis:PNEUMONIA, UNSPECIFIED ORGANISM Attending: NORENE, Current LOS: 2 Anticipated DC Date: Planned Disposition: Home Primary Insurance: MEDICARE A & B Discharge Planning Comments: * Is the patient Alert and Oriented? Yes 0 * How many steps to enter\exit or inside your home? NONE 0 * PCP DR. SORTO 0 * [facility] [address] [facility] * Preadmission Environment Home Alone 0 * ADLs Independent 0 * Equipment None 0 * Other Equipment NO MEDICAL EQUIPMENT PROVIDER PREFERENCE 0 * List name and contact numbers for known caregivers / representatives who currently or will assist patient after discharge: CARMINE ALCANTARA, FRIEND, 0 * Community resources currently utilized None 0 * Please name any agencies selected above. NONE 0 * Additional services required to return to the preadmission environment? No 0 * Can the patient safely return to the preadmission environment? Yes 0 * Has this patient been hospitalized within the prior 30 days at any hospital? Yes 0 CM MET WITH PT IN ROOM TO DISCUSS DISCHARGE PLANNING AND NEEDS. PT REPORTS LIVING AT HOME INDEPENDENTLY AND ALONE. PT HAS NO MEDICAL EQUIPMENT AND NO OUTSIDE SERVICES ASSISTING IN THE HOME. CM DISCUSSED AVAILABILITY OF HOME HEALTH, REHAB SERVICES AND MEDICAL EQUIPMENT. PT DENIES DISCHARGE NEEDS, REPORTS HIS FRIEND WILL PICK HIM UP FOR DISCHARGE HOME. CM EXPLAINED THAT HOME HEALTH MAY BE HELPFUL IN PREVENTING READMIT TO HOSPITAL, PT REPORTS HAVING HOUSECALLS WITH ACTIVITY DIRECTOR AND FEELS THAT HIS ENOUGH, REFUSED HOME HEALTH INFORMATION OR PHONE CALL FROM HOME HEALTH. IMPORTANT MESSAGE FROM MEDICARE PROVIDED AND EXPLAINED PT PLANS TO DISCHARGE HOME ALONE WITH HOUSECALLS. CM TO FOLLOW AND ASSIST NEEDED. Director Of Labor And Delivery: Ravinder Spann
--- NOTE | 2017-04-19 18:04 | NUR ---
UP IN ROOM. DENIES ANY NEEDS. FAMILY AT BEDSIDE.. TELEMERTY SHOWS SR
--- NOTE | 2017-04-19 19:53 | NUR ---
RESUMED CARE OF PT, LYING IN BED RESPIRATIONS EVEN AND UNLABORED ON 2LPM VIA NC. 52 CAF ON TELEMETRY. LEFT HAND SALINE LOCKED. NO NEEDS AT THIS TIME, CALL LIGHT IN REACH. SEE NURSE ASSESSMENT.
[2017-04-19 21:09] VITALS: BP 157/93
--- NOTE | 2017-04-19 23:47 | NUR ---
LYING IN BED WITH EYES CLOSED, CALL LIGHT IN REACH. WILL CONTINUE TO MONITOR.
[2017-04-20 01:59] VITALS: BP 110/62
--- NOTE | 2017-04-20 05:24 | NUR ---
WREATH MAKER AT BEDSIDE TO OBTAIN VITALS, CALL LIGHT IN REACH. WILL CONTINUE WITH PLAN OF CARE.
[2017-04-20 05:54] VITALS: BP 137/91
[2017-04-20 06:15] LABS: BASOPHILS 0.8 % (0-2); EOSINOPHILS 5.4 % (0-7); HEMATOCRIT 33.5 % (42.0-54.0); HEMOGLOBIN 10.6 g/dL (13.5-17.5); IMMATURE GRANULOCYTES 0.1 % (0-5); LYMPHOCYTES 14.3 % (15-50); MCH 29.6 pg (26.0-34.0); MCHC 31.6 g/dL (31.0-37.0); MCV 93.6 fL (80.0-100.0); MEAN PLATELET VOLUME 10.4 fL (7.4-10.4); NEUTROPHILS 68.4 % (40-80); PLATELET COUNT 263 10x3/uL (130-400); RBC 3.58 10x6/uL (4.20-6.10); RDW 14.8 % (11.5-14.5); WBC 7.6 10x3/uL (4.8-10.8)
[2017-04-20 06:49] LABS: ALBUMIN 2.7 g/dL (3.4-5.0); ANION GAP 13.1 mmol/L (8-16); BILIRUBIN - TOTAL 0.5 mg/dL (0.2-1.3); CALCIUM 8.6 mg/dL (8.5-10.1); CARBON DIOXIDE 26.3 mmol/L (21.0-32.0); CREATININE - SERUM 2.7 mg/dL (0.6-1.3); POTASSIUM - SERUM 3.4 mmol/L (3.5-5.1); PROTEIN - SERUM 6.2 g/dL (6.4-8.2)
--- NOTE | 2017-04-20 07:30 | NUR ---
RESTING QUIETLY NAD NOTED
[2017-04-20 07:55] VITALS: BP 142/80
--- NOTE | 2017-04-20 08:11 | NUR ---
ASSESSMENT DONE. DENIES NEEDS.
[2017-04-20 12:21] VITALS: BP 129/75
[2017-04-20 15:25] VITALS: BP 134/89
--- NOTE | 2017-04-20 16:52 | NUR ---
WITHOUT CHANGES OR DISTRESS NOTED AT THIS TIME. DENIES NEEDS.
--- NOTE | 2017-04-20 20:02 | NUR ---
RESUMED CARE OF PT, LYING IN BED RESPIRATIONS EVEN AND UNLABORED ON 2LPM VIA NC. 57 CAF ON TELEMETRY. LEFT HAND SALINE LOCKED. NO NEEDS AT THIS TIME, WILL CONTINUE TO MONITOR. SEE NURSE ASSESSMENT.
[2017-04-20 21:43] VITALS: BP 144/83
[2017-04-21 01:21] VITALS: BP 125/73
[2017-04-21 05:18] VITALS: BP 123/77
[2017-04-21 06:19] LABS: BASOPHILS 0.9 % (0-2); EOSINOPHILS 5.6 % (0-7); HEMATOCRIT 31.8 % (42.0-54.0); HEMOGLOBIN 10.3 g/dL (13.5-17.5); IMMATURE GRANULOCYTES 0.3 % (0-5); LYMPHOCYTES 14.4 % (15-50); MCH 30.5 pg (26.0-34.0); MCHC 32.4 g/dL (31.0-37.0); MCV 94.1 fL (80.0-100.0); MEAN PLATELET VOLUME 10.8 fL (7.4-10.4); MONOCYTES 11.7 % (2-11); NEUTROPHILS 67.1 % (40-80); PLATELET COUNT 257 10x3/uL (130-400); RBC 3.38 10x6/uL (4.20-6.10); RDW 14.8 % (11.5-14.5)
[2017-04-21 06:30] LABS: ALBUMIN 2.5 g/dL (3.4-5.0); ANION GAP 14.3 mmol/L (8-16); BILIRUBIN - TOTAL 0.5 mg/dL (0.2-1.3); CALCIUM 8.3 mg/dL (8.5-10.1); CARBON DIOXIDE 25.3 mmol/L (21.0-32.0); CREATININE - SERUM 2.8 mg/dL (0.6-1.3); POTASSIUM - SERUM 3.6 mmol/L (3.5-5.1)
[2017-04-21 08:00] VITALS: BP 149/74
--- NOTE | 2017-04-21 08:44 | NUR ---
ADMINISTERED AM MEDS. PT UP TO SIDE OF BED, EATING BREAKFAST. DENIES ANY NEEDS AT THIS TIME. [facility] NAD NOTED, WILL CONTINUE PLAN OF CARE.
[2017-04-21 12:00] VITALS: BP 142/85
--- NOTE | 2017-04-21 15:24 | NUR ---
PT UP TO CHAIR, ADMINISTERED MEDS SCHEDULED. PT DENIES ANY NEEDS AT THIS TIME. CALL LIGHT IN REACH, NAD NOTED.
[2017-04-21 16:00] VITALS: BP 148/96
--- NOTE | 2017-04-21 17:02 | NUR ---
PT UP TO SIDE OF BED, EATING DINNER, DENIES ANY NEEDS AT THIS TIME. CALL LIGHT IN REACH, NAD NOTED.
--- NOTE | 2017-04-21 19:06 | NUR ---
RECEIVED REPORT, WILL ASSUME CARE OF PT, PT LAYING PRICILLA, WITH LIGHT OFF, DENIES ANY NEEDS AT THIS TIME, CALL LIGHT IN REACH, WILL CONTINUE PLAN OF CARE
[2017-04-21 21:40] VITALS: BP 148/85
[2017-04-22] VITALS: BP 147/92
--- NOTE | 2017-04-22 02:08 | NUR ---
PT SLEEPING, BED IS LOW, SRX2, CALL LIGHT IN REACH, WILL CONTINUE PLAN OF CARE
[2017-04-22 04:16] VITALS: BP 117/61
--- NOTE | 2017-04-22 05:34 | NUR ---
PT IN BED RESTING QUIETLY. BREATHING EVEN AND UNLABORED. BED IN LOW POSITION, CALL LIGHT WITHIN REACH. WILL CTM.
[2017-04-22 05:40] LABS: BASOPHILS 0.9 % (0-2); EOSINOPHILS 5.4 % (0-7); HEMATOCRIT 31.7 % (42.0-54.0); IMMATURE GRANULOCYTES 0.3 % (0-5); LYMPHOCYTES 14.1 % (15-50); MCH 29.5 pg (26.0-34.0); MCHC 31.5 g/dL (31.0-37.0); MCV 93.5 fL (80.0-100.0); MEAN PLATELET VOLUME 10.7 fL (7.4-10.4); MONOCYTES 10.6 % (2-11); NEUTROPHILS 68.7 % (40-80); PLATELET COUNT 248 10x3/uL (130-400); RBC 3.39 10x6/uL (4.20-6.10); RDW 14.8 % (11.5-14.5)
[2017-04-22 05:59] LABS: ALBUMIN 2.6 g/dL (3.4-5.0); ANION GAP 12.2 mmol/L (8-16); BILIRUBIN - TOTAL 0.5 mg/dL (0.2-1.3); CALCIUM 8.3 mg/dL (8.5-10.1); CARBON DIOXIDE 26.2 mmol/L (21.0-32.0); CREATININE - SERUM 2.8 mg/dL (0.6-1.3); POTASSIUM - SERUM 3.4 mmol/L (3.5-5.1); PROTEIN - SERUM 6.2 g/dL (6.4-8.2)
--- NOTE | 2017-04-22 07:30 | NUR ---
REPORT RECEIVED. RR EVEN AND UNLABORED, PT DENIES NEEDS AT THIS TIME. UP BRUSHING TEETH. PT IS ALERT AND ORIENTED, FALL SOCKS ON PT, WILL CTM.
[2017-04-22 08:00] VITALS: BP 147/93
--- NOTE | 2017-04-22 10:58 | NUR ---
PTS K+ IS LOW. WILL GIVE PO POTASSIUM PER PROTOCOL.
[2017-04-22] MEDS ORDERED: FLORAJEN3 CAPS460 MG PO (11:49)
[2017-04-22] MEDS ORDERED: LEVAQUIN500 MG PO (11:51)
[2017-04-22 12:00] VITALS: BP 150/95
[2017-04-22] MEDS ORDERED: K-DUR20 MEQ PO (13:29)
[2017-04-22] MEDS ORDERED: LASIX40 MG PO (13:29)
--- NOTE | 2017-04-22 13:30 | NUR ---
PT DISCHARGED. TELE REMOVED AND RETURNED TO COMMUNICATIONS TECH, IV CATHETER REMOVED WITH TIP INTACT. WHEN GOING OVER HOME MEDS, PT REPORTED THAT HE DID NOT HAVE LASIX AND POTASSIUM WAS NOT ON THE MED REC. ДМИТРИЙ CAVAZOS APN AND DR. MORALES ROUNDED ON PT PRIOR TO D/C AND SENT PRESCRIPTIONS FOR BOTH TO PHARMACY ENTERED IN CHART. PT DENIES FURTHER NEEDS. WILL CALL WHEN READY TO GO HOME. WILL BE LEAVING FLOOR VIA WHEELCHAIR.
--- NOTE | 2017-04-22 14:40 | NUR ---
PTS TRANSPORT IS HERE TO GET PT. PT LEFT FLOOR VIA WHEELCHAIR.
== END 2017-04-22 14:44 | disposition home or self-care (01) | DRG 177 ==
LOC: D.M2 13:22
PROVIDERS: Family Medicine Adult Medicine; ADMIT Family Medicine
DX: J15.6 Pneumonia due to other Gram-negative bacteria (principal); I50.23 Acute on chronic systolic (congestive) heart failure; I13.0 Hypertensive heart and chronic kidney disease with heart failure and stage 1 through stage 4 chronic kidney disease, or unspecified chronic kidney disease; J13 Pneumonia due to Streptococcus pneumoniae; N18.9 Chronic kidney disease, unspecified; I48.91 Unspecified atrial fibrillation; I08.1 Rheumatic disorders of both mitral and tricuspid valves; I25.10 Atherosclerotic heart disease of native coronary artery without angina pectoris; Z95.5 Presence of coronary angioplasty implant and graft; D64.9 Anemia, unspecified; E78.5 Hyperlipidemia, unspecified; I71.4 Abdominal aortic aneurysm, without rupture; K57.90 Diverticulosis of intestine, part unspecified, without perforation or abscess without bleeding

== ENCOUNTER 2017-05-08 07:34 | Inpatient (IN) | payer MEDICARE, OTHER ==
[~2017-05-08] VITALS: Ht 188 cm; Wt 99.2 kg
[~2017-05-08 07:34] MED LIST changes: +FLORAJEN3 CAPS460 MG PO; +LEVAQUIN500 MG PO
[2017-05-08 08:11] LABS: BASOPHILS 0.2 % (0-2); EOSINOPHILS 0.1 % (0-7); HEMATOCRIT 38.3 % (42.0-54.0); IMMATURE GRANULOCYTES 0.2 % (0-5); LYMPHOCYTES 7.6 % (15-50); MCH 29.1 pg (26.0-34.0); MCHC 31.3 g/dL (31.0-37.0); MEAN PLATELET VOLUME 10.7 fL (7.4-10.4); MONOCYTES 7.4 % (2-11); NEUTROPHILS 84.5 % (40-80); PLATELET COUNT 295 10x3/uL (130-400); RBC 4.12 10x6/uL (4.20-6.10); RDW 15.4 % (11.5-14.5)
[2017-05-08 08:28] LABS: ALBUMIN 3.2 g/dL (3.4-5.0); ALKALINE PHOSPHATASE 81 U/L (46-116); ALT (SGPT) 28 U/L (10-68); BILIRUBIN - TOTAL 0.64 mg/dL (0.2-1.3); CALC OSMOLALITY 327 mosm/kg (275-300); CALCIUM 8.6 mg/dL (8.5-10.1); CARBON DIOXIDE 24.7 mmol/L (21.0-32.0); CHLORIDE - SERUM 109 mmol/L (98-107); CREATININE - SERUM 3.1 mg/dL (0.6-1.3); GLUCOSE 136 mg/dL (74-106); POTASSIUM - SERUM 3.8 mmol/L (3.5-5.1); PROTEIN - SERUM 6.8 g/dL (6.4-8.2); SODIUM 151 mmol/L (136-145); UREA NITROGEN 84 mg/dL (7-18); eGFR NON AFRICAN AMERICAN 21 mL/min (90-120)
[2017-05-08 08:41] LABS: CKMB 0.8 U/L (0.0-3.6); CREATINE KINASE 24 UL (21-232)
[2017-05-08 08:58] LABS: PRO BNP 35132 pg/mL (0-450)
--- NOTE | 2017-05-08 13:15 | NUR ---
PATIENT TO ROOM VIA WHEELCHAIR FROM ER. PATIENT IS ALERT AND ORIENTED AT THIS TIME. PATIENT HAS A 20G IV IN L HAND, SL AT THIS TIME. PATIENT GIRLFRIEND IS AT BEDSIDE. PATIENT DENIES ANY NEEDS. WILL CONT TO ADMIT PATIENT. CPOC
[2017-05-08 13:22] VITALS: BP 174/112; BMI 28.6
[2017-05-08] MEDS ORDERED: LEXAPRO10 MG PO (13:36)
[2017-05-08] MEDS ORDERED: FLUTICASONE PRO16 GM NASAL (13:42)
[2017-05-08] MEDS ORDERED: ALDACTONE25 MG PO (13:42)
--- NOTE | 2017-05-08 15:12 | NUR ---
AUTOMATIC PACKER OPERATOR INFORMED ME PATIENT RATE WAS DROPPING INTO THE 30'S AND THAT PATIENT WAS 35 AFIB ON MONITOR. WENT TO CHECK ON PATIENT, PATIENT IS SITTING IN CHAIR RESTING, DENIES ANY SOB, JUST STATES HE IS SLEEPY AND DIDN'T SLEEP LAST NIGHT. MANUAL RADIAL PULSE CHECKED AND PATIENT HR IS 54. 12 LEAD EKG DONE AND GIVEN TO ДМИТРИЙ BRADFORD. SHE IS CONSULTING CARDIOLOGY AT THIS TIME. WILL CONT TO MONITOR PATIENT. CPOC
--- NOTE | 2017-05-08 15:19 | NUR ---
ADDRESS PATIENTS CODE STATUS WITH HIM, EXPLAINED IF HIS HEART WAS TO STOP BEATING OR HE WAS TO STOP BREATHING WOULD HE WANT CPR OR TO BE VENTILATED AND HE STATED "WELL IT DEPENDS HOW MY LIFE WOULD BE AFTER" I INFORMED HIM THERE WAS NO WAY OF KNOWING THAT UNTIL WE WERE FACED WITH THAT, AND SO HE STATED HE WAS A FULL CODE. NOTIFIED DR. JACKSON
--- NOTE | 2017-05-08 15:30 | NUR ---
DR PAUL AT PATIENT [facility], ASSESSING. CPOC
[2017-05-08 16:38] VITALS: BP 155/107
--- NOTE | 2017-05-08 16:45 | NUR ---
STARTED DOBUTAMINE 3MCG/KG/MIN ON PATIENT THROUGHT LEFT HAND IV. INFUSING AT 9.1ML/HR. WILL CONT TO MONITOR. PATIENT IS AFIB ON MONITOR WITH A RATE OF 68. CPOC
--- NOTE | 2017-05-08 18:06 | NUR ---
PATIENT RESTING, DENIES ANY NEEDS. CONTROLLED AFIB ON MONITOR WITH A RATE OF 50. DENIES ANY NEEDS. CPOC
--- NOTE | 2017-05-08 18:22 | NUR ---
PATIENT REFUSING TO WEAR SCDS AT THIS TIME. EDUCATED THE RISKS, AND STILL REFUSED. CPOC
--- NOTE | 2017-05-08 18:23 | NUR ---
ROUNDS MADE, INFORMED PATIENT THE SHIFT WAS ENDING AND QA AUTOMATION ARCHITECT WAS ABOUT TO START, NEEDS MET. DENIES ANY FURTHER NEEDS. CPOC
[2017-05-08 21:06] VITALS: BP 169/95
--- NOTE | 2017-05-09 00:24 | NUR ---
RESTING WITH EYES CLOSED, RESPERATIONS EVEN, NO S/S DISTRESS NOTED.
[2017-05-09 00:58] VITALS: BP 148/97
[2017-05-09 05:44] LABS: BASOPHILS 0.6 % (0-2); EOSINOPHILS 4.3 % (0-7); HEMATOCRIT 35.3 % (42.0-54.0); HEMOGLOBIN 10.9 g/dL (13.5-17.5); IMMATURE GRANULOCYTES 0.2 % (0-5); LYMPHOCYTES 17.2 % (15-50); MCH 29.1 pg (26.0-34.0); MCHC 30.9 g/dL (31.0-37.0); MCV 94.1 fL (80.0-100.0); MEAN PLATELET VOLUME 10.9 fL (7.4-10.4); MONOCYTES 14.4 % (2-11); NEUTROPHILS 63.3 % (40-80); PLATELET COUNT 262 10x3/uL (130-400); RBC 3.75 10x6/uL (4.20-6.10); RDW 15.3 % (11.5-14.5); WBC 8.2 10x3/uL (4.8-10.8)
[2017-05-09 06:32] VITALS: BP 158/103
[2017-05-09 06:35] LABS: ALBUMIN 2.8 g/dL (3.4-5.0); ALKALINE PHOSPHATASE 67 U/L (46-116); ALT (SGPT) 27 U/L (10-68); BILIRUBIN - TOTAL 0.51 mg/dL (0.2-1.3); CALC OSMOLALITY 317 mosm/kg (275-300); CALCIUM 8.1 mg/dL (8.5-10.1); CARBON DIOXIDE 27.3 mmol/L (21.0-32.0); CHLORIDE - SERUM 109 mmol/L (98-107); CKMB 0.7 U/L (0.0-3.6); CREATINE KINASE 16 UL (21-232); CREATININE - SERUM 3.2 mg/dL (0.6-1.3); MAGNESIUM - SERUM 2.6 mg/dL (1.8-2.4); POTASSIUM - SERUM 3.6 mmol/L (3.5-5.1); PROTEIN - SERUM 6.1 g/dL (6.4-8.2); SODIUM 147 mmol/L (136-145); TROPONIN-I 0.028 ng/mL (0.000-0.060); UREA NITROGEN 87 mg/dL (7-18); eGFR NON AFRICAN AMERICAN 20 mL/min (90-120)
[2017-05-09 06:36] LABS: GLUCOSE 82 mg/dL (74-106)
--- NOTE | 2017-05-09 07:00 | NUR ---
RECEIVED REPORT. ASSUMED CARE OF PATIENT. RESTING IN BED WITH EYES OPEN. CALL LIGHT WITHIN REACH. DENIES NEEDS. RESP EVEN AND UNLABORED. IV FLUIDS INFUSING ORDERED AT 9.1 MCG/KG. NO DISTRESS.
[2017-05-09 08:22] VITALS: BP 172/92
--- NOTE | 2017-05-09 09:30 | NUR ---
PATIENT OOB SITTING TO CHAIR AT BEDSIDE. DENIES NEEDS. NO DISTRESS. DOBUTAMINE INFUSING ORDERED.
--- NOTE | 2017-05-09 12:15 | EC ---
PATIENT:ABDULLAHI POTTS JR DATE OF SERVICE: 05/08/17 SEX: M MEDICAL RECORD: [id number] DATE OF : [birth year] LOCATION:D.M2 D.212 AGE OF PATIENT: 76 ADMISSION DATE: 05/08/17 REFERRING PHYSICIAN: INTERPRETING PHYSICIAN: NILES RHOADES MD ECHOCARDIOGRAM REPORT ECHO CHARGES 4 ECHO COMPLETE CLINICAL DIAGNOSIS: CHF ECHOCARDIOGRAPHIC MEASUREMENTS (adult normal given) AC root (d.<3.7cm) 3.6 cm LV Septum d (<1.2 cm> 1.2 cm Valve Excursion 2.1 cm LV Septum (systole) 1.6 cm Left Atria (s.<4.0cm> 4.4 cm LVPW d(<1.2cm) 1.2 cm RV (d.<2.3cm) 2.9 cm LVPW (sytole) 1.6 cm LV diastole(<5.6CM) 6.4 cm MV E-F(>70mm/sec) cm LV systole 5.1 cm LVOT Diameter 1.9 cm MV exc.(>10mm) cm Est.ejection fraction (50-75%) % Pericardial Effusion N DOPPLER: LVIT cm/sec A cm/sec E 79.0 cm/sec LA cm/sec RVSP 58.2 mmHg LVOT 70.0 cm/sec AOP1/2T m/s Asc. Ao 100 cm/sec RVOT 57.0 cm/sec RA cm/sec PA 69.0 cm/sec AV Gradient Peak 3.9 mmHg AV Mean 1.9 mmHg AV Area 1.8 cm MV Gradient Peak 3.7 mmHg MV Mean 1.4 mmHg MV Area cm COMMENTS: Retail Center Receptionist: Irais FOXOE Director Of Integrated Marketing: 3 Dr. Elizabeth TAPE# PACS DATE OF SERVICE: 05/08/2017 Echocardiogram FINDINGS: 1. Left ventricular chamber size is dilated. Left ventricular systolic function is markedly reduced, overall ejection fraction estimated 20%. 2. Left atrium is dilated at 4.4 cm. Right atrium and right ventricular chamber sizes are as well moderately dilated. 3. Valvular structures have normal structure and motion. ECHOCARDIOGRAM REPORT [id number] ABDULLAHI POTTS JR 4. Doppler interrogation reveals moderate mitral regurgitation, moderate tricuspid regurgitation, no other valvular insufficiency or stenosis. Pulmonary systolic pressure is elevated estimated at 58 mmHg. 5. No evidence of pericardial effusion or left ventricular thrombus. TRANSINT:[id number] Voice Confirmation ID: [id number] DOCUMENT ID: [id number] NILES RHOADES MD at 1215 CC: [id number] DICTATION DATE: 05/08/17 1238 DOCUMENT CONTROL MANAGER: 05/08/17 1335 ADM IN [facility] [address] [place] [address]
[2017-05-09 12:37] VITALS: BP 143/86
[2017-05-09 13:27] VITALS: Ht 188 cm; Wt 99.2 kg
--- NOTE | 2017-05-09 14:00 | NUR ---
RESTING IN BED WITH EYES OPEN. FEMALE VISITOR AT BEDSIDE. DENIES NEEDS. FRESH ICE WATER PROVIDED. CALL LIGHT WITHIN REACH. NO DISTRESS.
[2017-05-09 16:28] VITALS: BP 150/86
[2017-05-09 21:26] VITALS: BP 151/89
--- NOTE | 2017-05-09 21:29 | NUR ---
HS MEDS GIVEN WITH FRESH ICE WATER, PT DENIES PAIN OR NEEDS.
--- NOTE | 2017-05-09 22:06 | NUR ---
EMERGENCY BR LIGHT ANSWERED, PT UP ON TOILET, IV OUT AND ON THE FLOOR TIP INTACT. PT BLEEDING FROM LEFT HAND. PLACED TOWEL ON HAND AND HAD PT APPLY PRESSURE. NOTIFED MT THAT PT WILL BE OFF OF TELEMETRY TO TAKE A SHOWER. PLASTIC CNC MACHINE OPERATOR AT BED SIDE TO ASSIST WITH SHOWER, INFORMED PT THAT I WILL RESITE IV AFTER HE GETS BACK IN BED.
--- NOTE | 2017-05-09 22:37 | NUR ---
IV RESITED TO LEFT WRIST, 22 GAUGE, FIRST ATTEMPT, PT TOLERATED WELL. DOBUTAMINE DRIP CONTINUED AT 9.1 CC/HR. PT DENIES PAIN OR NEEDS.
[2017-05-10] VITALS: BP 166/100
--- NOTE | 2017-05-10 03:20 | NUR ---
PT IN BED RESTING QUIETLY. BREATHING EVEN AND UNLABORED. WILL CTM.
--- NOTE | 2017-05-10 05:14 | NUR ---
RESTING WITH EYES CLOSED, RESPERATIONS EVEN, NO S/S DISTRESS NOTED.
[2017-05-10 06:27] VITALS: BP 169/99
[2017-05-10 06:44] LABS: BASOPHILS 0.6 % (0-2); EOSINOPHILS 6.2 % (0-7); HEMATOCRIT 34.4 % (42.0-54.0); HEMOGLOBIN 10.6 g/dL (13.5-17.5); IMMATURE GRANULOCYTES 0.2 % (0-5); LYMPHOCYTES 15.2 % (15-50); MCH 28.8 pg (26.0-34.0); MCHC 30.8 g/dL (31.0-37.0); MCV 93.5 fL (80.0-100.0); MEAN PLATELET VOLUME 11.1 fL (7.4-10.4); MONOCYTES 13.7 % (2-11); NEUTROPHILS 64.1 % (40-80); PLATELET COUNT 252 10x3/uL (130-400); RBC 3.68 10x6/uL (4.20-6.10); WBC 8.9 10x3/uL (4.8-10.8)
--- NOTE | 2017-05-10 07:15 | NUR ---
PT IN BED, WITH EYES CLOSED, AROUSES EASILY TO VOICE. RESP EVEN AND UNLABORED. LT WRIST IV INFUSING DOBUTAMINE AT 9.1. PT DENIES ANY NEEDS AT THIS TIME. CALL LIGHT IN REACH,NAD NOTED, WILL CONTINUE PLAN OF CARE.
[2017-05-10 07:24] LABS: ALBUMIN 2.8 g/dL (3.4-5.0); ANION GAP 10.7 mmol/L (8-16); BILIRUBIN - TOTAL 0.51 mg/dL (0.2-1.3); CALCIUM 8.2 mg/dL (8.5-10.1); CARBON DIOXIDE 29.4 mmol/L (21.0-32.0); CREATININE - SERUM 2.8 mg/dL (0.6-1.3); POTASSIUM - SERUM 3.1 mmol/L (3.5-5.1)
[2017-05-10 07:31] VITALS: BP 178/98
--- NOTE | 2017-05-10 08:46 | NUR ---
AM MEDS GIVEN AT THIS TIME. PT UP TO CHAIR, FILLING OUT MENU. PT DENIES ANY NEEDS AT THIS TIME, CALL LIGHT IN REACH, NAD NOTED, WILL CONTINUE PLAN OF CARE.
--- NOTE | 2017-05-10 11:32 | NUR ---
EMPTIED PT URINAL AT THIS TIME, TOTAL OUTPUT WAS 700, PT DENIES ANY NEEDS AT THIS TIME, CALL LIGHT IN REACH,N AD NOTED, WILL CONTINUE PLAN OF CARE.
[2017-05-10 11:41] VITALS: BP 148/84
[2017-05-10 16:37] VITALS: BP 185/88
--- NOTE | 2017-05-10 20:07 | NUR ---
PT AWAKE, ALERT, ORIENTED, RESTING COMFORTABLY, NO NEEDS AT THIS TIME. CONTINUE TO MONITOR CLOSELY.
[2017-05-10 21:03] VITALS: BP 162/94
--- NOTE | 2017-05-11 00:54 | NUR ---
PT RESTING COMFORTABLY, EASILY ROUSABLE TO VERBAL STIMULI, NO NEEDS AT THIS TIME. CONTINUE TO MONITOR CLOSELY.
[2017-05-11 04:46] LABS: BASOPHILS 0.4 % (0-2); EOSINOPHILS 5.8 % (0-7); HEMATOCRIT 35.1 % (42.0-54.0); IMMATURE GRANULOCYTES 0.3 % (0-5); LYMPHOCYTES 15.1 % (15-50); MCH 29.1 pg (26.0-34.0); MCHC 31.3 g/dL (31.0-37.0); MCV 92.9 fL (80.0-100.0); MEAN PLATELET VOLUME 10.1 fL (7.4-10.4); MONOCYTES 13.5 % (2-11); NEUTROPHILS 64.9 % (40-80); PLATELET COUNT 225 10x3/uL (130-400); RBC 3.78 10x6/uL (4.20-6.10); RDW 14.9 % (11.5-14.5); WBC 7.5 10x3/uL (4.8-10.8)
[2017-05-11 05:08] LABS: ALBUMIN 2.9 g/dL (3.4-5.0); ANION GAP 7.6 mmol/L (8-16); BILIRUBIN - TOTAL 0.56 mg/dL (0.2-1.3); CALCIUM 8.4 mg/dL (8.5-10.1); CARBON DIOXIDE 32.5 mmol/L (21.0-32.0); CREATININE - SERUM 2.5 mg/dL (0.6-1.3); POTASSIUM - SERUM 3.1 mmol/L (3.5-5.1); PROTEIN - SERUM 6.1 g/dL (6.4-8.2)
[2017-05-11 05:40] VITALS: BP 179/61
--- NOTE | 2017-05-11 06:15 | NUR ---
PT SITTING IN CHAIR, AWAKE, ALERT, ORIENTED, DRINKING COFFEE, NO OTHER NEEDS. CONTINUE TO MONITOR CLOSELY.
--- NOTE | 2017-05-11 07:17 | NUR ---
PT UP TO CHAIR, WITH EYES CLOSED, AROUSES EASILY TO VOICE. RESP EVEN AND UNLAOBORED. PT REQUESTED A CUP OF WATER, WILL PROVIDED PT WITH WATER. PT DENIES ANY OTHER NEEDS AT THIS TIME. CALL LIGHT IN REACH, NAD NOTED, WILL CONTINUE PLAN OF CARE.
--- NOTE | 2017-05-11 08:15 | NUR ---
AM MEDS GIVEN AT THIS TIME. PT UP TO CHAIR, DENIES ANY NEEDS, CALL LIGHT IN REACH, NAD NOTED, WILL CONTINUE PLAN OF CARE.
[2017-05-11 08:34] VITALS: BP 174/106
--- NOTE | 2017-05-11 11:44 | NUR ---
NOTIFIED ДМИТРИЙ CARLSON OF LOW K OF 3.1, PT STATED TO PUT PT ON ELECTROLYTE PROTOCOL.
--- NOTE | 2017-05-11 12:35 | NUR ---
Nutrition Follow Up: Pt is eating 75% meal avg on a renal diet. +BM 05/10/17. Wt stable. Labs reviewed. Meds noted including Lasix. Rec continue current diet. RD following.
--- NOTE | 2017-05-11 16:08 | NUR ---
10MG OF HYDRALAZINE GIVEN IV FOR HIGH BP. PT UP TO CHAIR, DENIES ANY NEEDS AT THIS TIME. CALL LIGHT IN REACH,NAD NOTED, WILL CONTINUE PLAN OF CARE.
[2017-05-11 16:35] VITALS: BP 133/50
[2017-05-11 21:56] VITALS: BP 157/90
[2017-05-12 06:09] VITALS: BP 158/92
[2017-05-12 06:47] LABS: BASOPHILS 0.3 % (0-2); EOSINOPHILS 4.6 % (0-7); HEMATOCRIT 35.1 % (42.0-54.0); IMMATURE GRANULOCYTES 0.1 % (0-5); LYMPHOCYTES 12.4 % (15-50); MCH 29.2 pg (26.0-34.0); MCHC 31.3 g/dL (31.0-37.0); MCV 93.1 fL (80.0-100.0); MEAN PLATELET VOLUME 9.8 fL (7.4-10.4); MONOCYTES 13.7 % (2-11); NEUTROPHILS 68.9 % (40-80); PLATELET COUNT 211 10x3/uL (130-400); RBC 3.77 10x6/uL (4.20-6.10)
[2017-05-12 07:05] LABS: ALBUMIN 2.8 g/dL (3.4-5.0); ANION GAP 10.8 mmol/L (8-16); BILIRUBIN - TOTAL 0.8 mg/dL (0.2-1.3); CALCIUM 8.6 mg/dL (8.5-10.1); CARBON DIOXIDE 31.4 mmol/L (21.0-32.0); CREATININE - SERUM 2.3 mg/dL (0.6-1.3); POTASSIUM - SERUM 3.2 mmol/L (3.5-5.1)
--- NOTE | 2017-05-12 07:12 | NUR ---
PT UP TO CHAIR, ON HIS TABLET. RESP EVEN AND NONLABORED, LT WRIST IV INFUSING DOBUTAMINE AT 9.1ML/HR. PT DENIES ANY NEEDS AT THIS TIME. CALL LIGHT IN REACH, NAD NOTED, WILL CONTINUE PLAN OF CARE.
[2017-05-12 08:43] VITALS: BP 157/96
--- NOTE | 2017-05-12 09:07 | NUR ---
AM MEDS GIVEN AT THIS TIME. ALSO GAVE 40MEQ OF K FOR LOW K OF 3.2, WILL HAVE LAB RECHECK K AT 1300 AND TREAT NEEDED. PT UP TO CHAIR, DENIES ANY NEEDS AT THIS TIME. CALL LIGHT IN REACH, NAD NOTED, WILL CONTINUE TO MONITOR.
[2017-05-12 13:12] VITALS: BP 169/103
[2017-05-12 17:17] VITALS: BP 159/88
--- NOTE | 2017-05-12 19:30 | NUR ---
ROUNDING NOTE: PT IS ALERT AND ORIENTED X3, SITTING UP IN BED AT CHANGE OF SHIFT. PT IS WEARING 2LNC. HAS RIGHT WRIST SALINE LOC, CONTROLLED AFIB ON THE MONITOR. PT STATES THAT HE MIGHT BE GOING HOME TOMORROW. WILL CONT TO MONITOR.
--- NOTE | 2017-05-13 05:08 | NUR ---
PT HAS BEEN RESTING COMFORTABLY WITH EYES CLOSED THROUGHOUT THE NIGHT. VS REMAINED STABLE ON 2LNC. PO LASIX GIVEN PER EP PROTCOL FOR LOW K+, AWAITING AM LABS FOR K+ TO BE RECHECKED. WILL CONT TO MONITOR.
[2017-05-13 05:11] VITALS: BP 134/88
[2017-05-13 06:54] LABS: BASOPHILS 0.4 % (0-2); EOSINOPHILS 7.5 % (0-7); HEMATOCRIT 37.5 % (42.0-54.0); HEMOGLOBIN 11.6 g/dL (13.5-17.5); IMMATURE GRANULOCYTES 0.1 % (0-5); MCH 29.1 pg (26.0-34.0); MCHC 30.9 g/dL (31.0-37.0); MEAN PLATELET VOLUME 10.8 fL (7.4-10.4); MONOCYTES 12.2 % (2-11); NEUTROPHILS 64.8 % (40-80); PLATELET COUNT 240 10x3/uL (130-400); RBC 3.99 10x6/uL (4.20-6.10); WBC 6.8 10x3/uL (4.8-10.8)
--- NOTE | 2017-05-13 07:20 | NUR ---
ASSESSMENT COMPLETED. UP IN CHAIR. DENIES ANY NEEDS. TELEMERTY SHOWS CAF 86. 02 2L/M PER NC. UP AB MARGE. WILL MONITOR
[2017-05-13 07:24] LABS: ANION GAP 9.1 mmol/L (8-16); BILIRUBIN - TOTAL 0.71 mg/dL (0.2-1.3); CARBON DIOXIDE 32.6 mmol/L (21.0-32.0); CREATININE - SERUM 2.5 mg/dL (0.6-1.3); POTASSIUM - SERUM 3.7 mmol/L (3.5-5.1); PROTEIN - SERUM 6.6 g/dL (6.4-8.2)
[2017-05-13 09:19] VITALS: BP 167/99
[2017-05-13 12:08] VITALS: BP 122/88
[2017-05-13] MEDS ORDERED: LASIX40 MG PO (12:12)
--- NOTE | 2017-05-13 14:57 | NUR ---
PT DISCHARGED. IV DCD WITH TIP INTACT. INSTRUCTIONS GIVEN TO PT. AWAITING TRANSPORTATION
--- NOTE | 2017-05-13 16:00 | NUR ---
TO PRIVATE CAR PER WHEELCHAIR.
== END 2017-05-13 16:37 | disposition home or self-care (01) | DRG 291 ==
LOC: D.ER 07:34 → D.M2 12:11
PROVIDERS: Family Medicine; ADMIT Family Medicine
DX: I13.0 Hypertensive heart and chronic kidney disease with heart failure and stage 1 through stage 4 chronic kidney disease, or unspecified chronic kidney disease (principal); I50.21 Acute systolic (congestive) heart failure; N18.4 Chronic kidney disease, stage 4 (severe); N17.9 Acute kidney failure, unspecified; I48.91 Unspecified atrial fibrillation; E78.5 Hyperlipidemia, unspecified; I42.9 Cardiomyopathy, unspecified; I25.10 Atherosclerotic heart disease of native coronary artery without angina pectoris; Z95.5 Presence of coronary angioplasty implant and graft; D63.1 Anemia in chronic kidney disease; I08.1 Rheumatic disorders of both mitral and tricuspid valves

== ENCOUNTER 2017-05-14 09:21 | Inpatient (IN) | payer MEDICARE, OTHER ==
[~2017-05-14] VITALS: Ht 188 cm; Wt 98.7 kg
--- NOTE | ~2017-05-14 | HP ---
PATIENT: ABDULLAHI MONTE JR MEDICAL RECORD: [id number] ACCOUNT: [id number] LOCATION:[address] : 42 ADMISSION DATE: 05/14/17 HISTORY AND PHYSICAL EXAMINATION DIAGNOSES: 1. Congestive heart failure, chronic systolic dysfunction. 2. Ischemic cardiomyopathy. 3. Coronary artery disease. 4. Hypertension. 5. Hyperlipidemia. 6. Chronic renal insufficiency. HISTORY OF PRESENT ILLNESS: Mr. Monte was just discharged from the hospital yesterday. He presents with recurrent congestive heart failure. Chest x-ray is compatible with pulmonary edema. Creatinine is worse at 2.9. His ejection fraction is in the 20% range. He does have ischemic cardiomyopathy. He had a myocardial infarction in November, PTCA stent of the LAD. REVIEW OF SYSTEMS: The patient reports easy bruising but reports no swollen glands. The patient reports no fever, no night sweats, no significant weight gain, no significant weight loss. No significant exercise tolerance. The patient reports no dry eyes, no irritation, no vision change. Patient reports no difficulty hearing and no ear pain. Patient reports no frequent nose bleeds or nose and sinus problems. Patient reports on arm pain on exertion. No shortness of breath while lying down. No history of heart murmur. Patient reports no cough, no wheezing or coughing up blood. Patient reports no abdominal pain, no vomiting. Normal appetite. No diarrhea and not vomiting blood. No nausea and no constipation. Patient reports no incontinence. No difficulty urinating. No hematuria. No increased frequency. Patient reports no muscle aches. No weakness, no arthralgias, no back pain. No swelling of the extremities. Patient reports no abnormal mole, no jaundice, no rashes. Reports no loss of consciousness. No weakness and no numbness. No seizures, dizziness, or headaches. The patient reports no depression, no sleep disturbance, feeling safe in a relationship and no alcohol abuse. Patient reports on fatigue. Reports no runny nose or sinus pressure. No itching, no hives, and no frequent sneezing. PHYSICAL EXAMINATION: GENERAL APPEARANCE: Well-nourished, well-developed, appears stated age. Level of distress, comfortable. PSYCHIATRIC: Mental status, alert, normal affect. Orientation, oriented to time, place and person. EYES: Lids and conjunctiva, noninjected. No discharge, no pallor. ENT: Lips, teeth, gums, normal dentition. Oropharynx, no cyanosis, no pallor. NECK: Carotid arteries, bilateral normal upstroke, no bruits, no thrills. JUGULAR VEINS: No jugular venous pressure or distention. CERVICAL LYMPH NODES: Nontender, nonenlarged. THYROID: Not enlarged. Nontender. No nodules. LUNGS: Respiratory effort, unlabored. CHEST: Normal curvature. No thoracic deformity. No chest wall tenderness. Percussion, resonant. Auscultation, clear. No wheezes, no rales, no rhonchi. CARDIOVASCULAR: Precordial exam, nondisplaced. No heaves or pericardial thrills. Rate and rhythm, regular. Heart sounds, normal S1, normal S2. No S3, no gallop, no rub. Systolic murmur, not heard. Diastolic murmur, not heard. HISTORY AND PHYSICAL [id number] ABDULLAHI MONTE JR EXTREMITIES: No cyanosis, no edema. Peripheral pulses, full and equal in all extremities, except as noted. No bruits appreciated. ABDOMEN: Soft, nondistended. Normal aorta. No bruit. Nontender. No masses. Liver, nontender, no hepatomegaly. Spleen, nontender, no splenomegaly. MUSCULOSKELETAL: No joint tenderness. No joint swelling. No erythema. NEUROLOGICAL: Normal gait, normal strength, normal tone. SKIN: Warm and dry. OVERALL IMPRESSION: Ischemic cardiomyopathy. We will admit, start inotropic therapy as well as IV Bumex in hopes of clearing the heart failure. His long-term prognosis is not good. There is really nothing else to offer and his chances of recurrent heart failure are extremely high, we would consider home hospice. TRANSINT:[id number] Voice Confirmation ID: [id number] DOCUMENT ID: [id number] NILES RHOADES MD at 1027 CC: [id number] DICTATION DATE: 05/14/17 1055 PAPER COATER: 05/14/17 1120 ADM IN [id number] [place] [address]
--- NOTE | ~2017-05-14 | DS ---
PATIENT:ABDULLAHI POTTS JR :42 MEDICAL RECORD: [id number] DISCHARGE SUMMARY ADMISSION DATE: 05/14/17 DISCHARGE DATE: 05/16/17 DISCHARGE DIAGNOSES: 1. Congestive heart failure, chronic systolic dysfunction. 2. Cardiomyopathy, ischemic. 3. Renal insufficiency, chronic. 4. Hypertension. HOSPITAL COURSE: This is a gentleman, who has an ischemic cardiomyopathy, ejection fraction 20%, presents with heart failure symptomatology. Underwent IV Bumex and IV dobutamine therapy, responded nicely. He was discharged home. Medications changed. Old medications are now b.i.d. He was previously on hydralazine and clonidine, these have been moved to b.i.d. He has the addition of Coreg and Norvasc b.i.d. as well. No HE inhibitor was prescribed secondary to his renal insufficiency. He will follow up Dr. Medrano in 2 weeks. TRANSINT:[id number] Voice Confirmation ID: [id number] DOCUMENT ID: [id number] NILES RHOADES MD at 1546 CC: [id number] DICTATION DATE: 05/16/17 1026 MATERIALS SCHEDULER: 05/16/17 1316 DIS IN 05/16/17 [id number] [place] [address]
[~2017-05-14 09:21] MED LIST changes: +LEXAPRO10 MG PO
[2017-05-14 10:13] LABS: BASOPHILS 0.3 % (0-2); EOSINOPHILS 0.6 % (0-7); HEMATOCRIT 38.2 % (42.0-54.0); HEMOGLOBIN 11.9 g/dL (13.5-17.5); IMMATURE GRANULOCYTES 0.2 % (0-5); LYMPHOCYTES 5.5 % (15-50); MCH 28.9 pg (26.0-34.0); MCHC 31.2 g/dL (31.0-37.0); MCV 92.7 fL (80.0-100.0); MEAN PLATELET VOLUME 10.7 fL (7.4-10.4); MONOCYTES 7.1 % (2-11); NEUTROPHILS 86.3 % (40-80); PLATELET COUNT 263 10x3/uL (130-400); RBC 4.12 10x6/uL (4.20-6.10)
[2017-05-14 10:15] LABS: WBC 9.7 10x3/uL (4.8-10.8)
[2017-05-14 10:24] LABS: ALBUMIN 3.2 g/dL (3.4-5.0); ANION GAP 16.9 mmol/L (8-16); BILIRUBIN - TOTAL 0.9 mg/dL (0.2-1.3); CALCIUM 8.9 mg/dL (8.5-10.1); CARBON DIOXIDE 25.9 mmol/L (21.0-32.0); CREATININE - SERUM 2.9 mg/dL (0.6-1.3); POTASSIUM - SERUM 3.8 mmol/L (3.5-5.1); PROTEIN - SERUM 6.9 g/dL (6.4-8.2)
[2017-05-14 13:14] VITALS: BP 164/107; BMI 27.1
[2017-05-14 17:02] VITALS: BP 165/113
[2017-05-14 21:07] VITALS: BP 161/99
[2017-05-15 00:58] VITALS: BP 148/95
[2017-05-15 05:19] VITALS: BP 148/94
[2017-05-15 07:39] VITALS: BP 157/113
[2017-05-15 11:56] VITALS: BP 145/111
[2017-05-15 13:41] VITALS: Ht 188 cm; Wt 98.7 kg
[2017-05-15 15:51] VITALS: BP 136/99
[2017-05-15 19:00] VITALS: BP 166/111
[2017-05-16] VITALS: BP 162/118
[2017-05-16 04:00] VITALS: BP 152/107
[2017-05-16 07:41] VITALS: BP 165/115
[2017-05-16] MEDS ORDERED: COREG25 MG PO (11:07)
[2017-05-16] MEDS ORDERED: NORVASC5 MG PO (11:08)
[2017-05-16 11:19] VITALS: BP 132/93
== END 2017-05-16 12:55 | disposition home or self-care (01) | DRG 292 ==
LOC: D.ER 09:21 → D.M2 11:40
PROVIDERS: Emergency Medicine
DX: I13.0 Hypertensive heart and chronic kidney disease with heart failure and stage 1 through stage 4 chronic kidney disease, or unspecified chronic kidney disease (principal); I50.22 Chronic systolic (congestive) heart failure; I25.10 Atherosclerotic heart disease of native coronary artery without angina pectoris; Z95.5 Presence of coronary angioplasty implant and graft; E78.5 Hyperlipidemia, unspecified; N18.9 Chronic kidney disease, unspecified; I25.5 Ischemic cardiomyopathy